=== PATIENT | female | born 1990 | race Caucasian/White ===

== ENCOUNTER 2016-12-22 18:17 | Inpatient (IN) | payer BC ==
[2016-12-22] MEDS ORDERED: Sodium Chloride 0.9% 1,000 ML IV ONE (18:49)
[2016-12-22] MEDS ORDERED: Ondansetron 4 MG/2 ML SDV IVPUSH ONE (18:49)
[2016-12-22] MEDS ORDERED: Ondansetron 4 MG/2 ML SDV ONE (19:16)
--- NOTE | 2016-12-22 19:16 | EDM.PDOC ---
ED HPI Behavioral Health - General Chief Complaint: Drug or Alcohol Abuse Stated Complaint: ETOH Time Seen by Provider: 12/22/16 18:34 Source of Information: Reports: Patient, RN notes reviewed, Other (Friend) Exam Limitations: Reports: No limitations - History of Present Illness INITIAL COMMENTS - FREE TEXT/NARRATIVE: The patient states that she is here to stop drinking alcohol. She states that she has a sister in [place] who is a heavy drug addict, and that a custody issue came up last night, and that the patient needs to get clean and sober quickly, in order to gain custody of her sister's children. The patient states that she drinks 1.75 L of vodka daily, since October 18, 2016. Medical records indicate that the patient was seen in this ED 04/18/2016 with alcohol intoxication, and was admitted to the hospital for detoxification through 2015. She states that she was incarcerated in May 2016, and remained sober until her release on 10/18/2016. The patient's last drink was approximately 15 minutes prior to arrival to the ED. She states that if she does not drink hourly, that she goes through withdrawal, involving body pain and seizures. Shortly after arrival, the patient pretended to be having a seizure, however, when given a sternal rub, immediately woke up and became alert and hostile. The patient states that she started drinking in March 2014, but not heavily until December 2015. She has never previously been in inpatient or outpatient alcohol treatment. She has never previously been hospitalized related to alcohol, either from intoxication, or an injury related to intoxication, other than the aforementioned admission 04/18/2016. She admits to one DUI on 2014. The patient also reports former use of heroin, last approximately 3 years ago, and current use of methamphetamine, last 7 days ago. She also smokes marijuana regularly. She states that she takes prescribed Adderall for ADD and ADHD. The patient also reports frequent use of [id number] Benadryl. The patient states that she has chronic "kidney" pain since March or April 2016. She has no prior medical evaluation of this, but states that she knows her body and that it is her kidneys, not something else. 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 Pt states she drinks 1.5L Vodka daily to prevent detoxing and get high. Pt denies drug use. - Infectious Disease History Infectious Disease History: Reports: Chicken pox - Past Surgical History Female Surgical History: Reports: Salpingo-oophorectomy (Total right, partial left) Neurological Surgical History: Reports: None Social & Family History - Tobacco Use Smoking Status *Q: Current Every Day Smoker Years of Tobacco use: 2 Packs/Tins Daily: 1 Used Tobacco, but Quit: No - Alcohol Use Alcohol Use History: Yes Days Per Week of Alcohol Use: 7 Number of Drinks Per Day: 34 Total Drinks Per Week: 238 Alcohol Use Frequency: Daily - Recreational Drug Use Recreational Drug Use: Yes Drug Use in Last 12 Months: Yes Recreational Drug Type: Reports: Amphetamines (Speed), Heroin, Marijuana/Hashish , Methamphetamine Recreational Drug Use Frequency: Socially Recreational Drug Last Use: 45 days ago - Living Situation & Occupation Living situation: Reports: single, alone Occupation: unemployed ED ROS GENERAL - Review of Systems Review Of Systems: See Below Constitutional: Reports: no symptoms HEENT: Reports: Throat pain (A few days ago) Respiratory: Reports: Cough (A few days ago) Cardiovascular: Reports: No symptoms Endocrine: Reports: no symptoms GI/Abdominal: Reports: No symptoms : Reports: no symptoms Musculoskeletal: Reports: no symptoms Skin: Reports: no symptoms Neurological: Reports: No Symptoms Psychiatric: Reports: No symptoms Hematologic/Lymphatic: Reports: no symptoms Immunologic: Reports: no symptoms ED EXAM, BEHAVIORAL HEALTH - Physical Exam Exam: See Below Exam Limited By: Intoxication General Appearance: alert, WD/WN, mild distress Eye Exam: bilateral eye: EOMI, normal inspection Ears: normal external exam, hearing grossly normal Nose: normal inspection, no blood Throat/Mouth: Normal inspection, Normal lips, Normal voice, No airway compromise Head: atraumatic, normocephalic Neck: normal inspection, full range of motion Respiratory/Chest: no respiratory distress, lungs clear, normal breath sounds, no accessory muscle use, chest non-tender Cardiovascular: normal peripheral pulses, regular rate, rhythm, no edema, no gallop, no JVD, no murmur, no rub GI/Abdominal: normal bowel sounds, soft, non tender, no organomegaly, no distention, no abnormal bruit, no mass Back Exam: normal inspection, full range of motion. No: CVA tenderness (L), CVA tenderness (R) Extremities: normal inspection, normal range of motion, non-tender, normal capillary refill, no pedal edema Neurological: alert, no motor/sensory deficits, other (Clinically intoxicated. No visible tremulousness.) Psychiatric: agitated Skin Exam: Warm, Dry, Intact, Normal color, No rash EKG INTERPRETATION EKG Date: 12/22/16 Time: 20:10 Rhythm: NSR Rate (beats/min): 100 [place]: normal P-wave: present QRS: normal ST-T: normal QT: normal Comparison: no change (04/18/2016) COURSE, BEHAVIORAL HEALTH COMP - Course Vital Signs: Last Vital Signs Temp 36.4 C 12/22/16 18:25 Pulse 124 H 12/22/16 18:25 Resp 20 12/22/16 18:25 BP 134/86 12/22/16 18:25 Pulse Ox 97 12/22/16 18:25 Orders, Labs, Meds: Active Orders 24 hr Category Date Time Status Admission Status [Patient Status] [ADT] Routine ADT 12/22/16 20:58 Ordered EKG Documentation Completion [RC] STAT Care 12/22/16 18:48 Active Sodium Chloride 0.9% [Normal Saline] 1,000 ml Med 12/22/16 20:45 Active IV ASDIRECTED Medication Orders Sodium Chloride (Normal Saline) 1,000 mls @ 100 mls/hr IV ASDIRECTED MALDONADO Last Admin: 12/22/16 20:50 Dose: 100 mls/hr Laboratory Tests 12/22/16 12/22/16 12/22/16 Range/Units 18:47 18:47 18:47 WBC 13.12 H (3.98-10.04) K/mm3 RBC 4.47 (3.98-5.22) M/mm3 Hgb 13.5 (11.2-15.7) gm/L Hct 39.5 (34.1-44.9) % MCV 88.4 (79.4-94.8) fl MCH 30.2 (25.6-32.2) pg MCHC 34.2 (32.2-35.5) g/dl RDW Std Deviation 40.6 (36.4-46.3) fL Plt Count 338 (182-369) K/mm3 MPV 8.0 L (9.4-12.3) fl Neutrophils % (Manual) 44 (40-60) % Band Neutrophils % 0 (0-10) % Lymphocytes % (Manual) 45 H (20-40) % Atypical Lymphs % 0 % Monocytes % (Manual) 11 H (2-10) % Eosinophils % (Manual) 0 L (0.7-5.8) % Basophils % (Manual) 0 L (0.1-1.2) Platelet Estimate Adequate Plt Morphology Comment Normal RBC Morph Comment Normal Sodium 143 (136-145) mEq/L Potassium 3.2 L (3.5-5.1) mEq/L Chloride 104 (98-107) mEq/L Carbon Dioxide 24 (21-32) mEq/L Anion Gap 18.2 H (5-15) BUN 11 (7-18) mg/dL Creatinine 0.8 (0.55-1.02) mg/dL Est Cr Clr Drug Dosing 81.12 mL/min Estimated GFR (MDRD) > 60 (>60) mL/min BUN/Creatinine Ratio 13.8 L (14-18) Glucose 83 (74-106) mg/dL Calcium 8.8 (8.5-10.1) mg/dL Total Bilirubin 0.4 (0.2-1.0) mg/dL AST 42 H (15-37) U/L ALT 44 (14-59) U/L Alkaline Phosphatase 93 (46-116) U/L Total Protein 7.7 (6.4-8.2) g/dl Albumin 3.7 (3.4-5.0) g/dl Globulin 4.0 gm/dL Albumin/Globulin Ratio 0.9 L (1-2) TSH 3rd Generation 0.842 (0.358-3.74) uIU/mL Urine Color (Yellow) Urine Appearance (Clear) Urine pH (5.0-8.0) Ur Specific [place] (1.005-1.030) Urine Protein (Negative) Urine Glucose (UA) (Negative) Urine Ketones (Negative) Urine Occult Blood (Negative) Urine Nitrite (Negative) Urine Bilirubin (Negative) Urine Urobilinogen (0.2-1.0) Ur Leukocyte Esterase (Negative) Urine RBC (0-5) /hpf Urine WBC (0-5) /hpf Ur Epithelial Cells (0-5) /hpf Urine Bacteria (FEW) /hpf Urine Mucus (FEW) /hpf Urine HCG, Qual (NEGATIVE) Salicylates 2.5 L (2.8-20) mg/dL Urine Opiates Screen (NEGATIVE) Ur Buprenorphine Scrn (NEGATIVE) Ur Oxycodone Screen (NEGATIVE) Urine Methadone Screen (NEGATIVE) Ur Propoxyphene Screen (NEGATIVE) Acetaminophen 0 L (10-30) ug/mL Ur Barbiturates Screen (NEGATIVE) Ur Tricyclics Screen (NEGATIVE) Ur Phencyclidine Scrn (NEGATIVE) Ur Amphetamine Screen (NEGATIVE) U Methamphetamines Scrn (NEGATIVE) U Benzodiazepines Scrn (NEGATIVE) U Cocaine Metab Screen (NEGATIVE) U Marijuana (THC) Screen (NEGATIVE) Ethyl Alcohol 0.32 (0.00) gm% 12/22/16 12/22/16 12/22/16 Range/Units 19:49 19:49 19:49 WBC (3.98-10.04) K/mm3 RBC (3.98-5.22) M/mm3 Hgb (11.2-15.7) gm/L Hct (34.1-44.9) % MCV (79.4-94.8) fl MCH (25.6-32.2) pg MCHC (32.2-35.5) g/dl RDW Std Deviation (36.4-46.3) fL Plt Count (182-369) K/mm3 MPV (9.4-12.3) fl Neutrophils % (Manual) (40-60) % Band Neutrophils % (0-10) % Lymphocytes % (Manual) (20-40) % Atypical Lymphs % % Monocytes % (Manual) (2-10) % Eosinophils % (Manual) (0.7-5.8) % Basophils % (Manual) (0.1-1.2) Platelet Estimate Plt Morphology Comment RBC Morph Comment Sodium (136-145) mEq/L Potassium (3.5-5.1) mEq/L Chloride (98-107) mEq/L Carbon Dioxide (21-32) mEq/L Anion Gap (5-15) BUN (7-18) mg/dL Creatinine (0.55-1.02) mg/dL Est Cr Clr Drug Dosing mL/min Estimated GFR (MDRD) (>60) mL/min BUN/Creatinine Ratio (14-18) Glucose (74-106) mg/dL Calcium (8.5-10.1) mg/dL Total Bilirubin (0.2-1.0) mg/dL AST (15-37) U/L ALT (14-59) U/L Alkaline Phosphatase (46-116) U/L Total Protein (6.4-8.2) g/dl Albumin (3.4-5.0) g/dl Globulin gm/dL Albumin/Globulin Ratio (1-2) TSH 3rd Generation (0.358-3.74) uIU/mL Urine Color Yellow (Yellow) Urine Appearance Clear (Clear) Urine pH 6.5 (5.0-8.0) Ur Specific [place] 1.010 (1.005-1.030) Urine Protein Negative (Negative) Urine Glucose (UA) Negative (Negative) Urine Ketones 1+ H (Negative) Urine Occult Blood Negative (Negative) Urine Nitrite Negative (Negative) Urine Bilirubin Negative (Negative) Urine Urobilinogen 0.2 (0.2-1.0) Ur Leukocyte Esterase Negative (Negative) Urine RBC Not seen (0-5) /hpf Urine WBC 0-5 (0-5) /hpf Ur Epithelial Cells Not seen (0-5) /hpf Urine Bacteria Few (FEW) /hpf Urine Mucus Not seen (FEW) /hpf Urine HCG, Qual Negative (NEGATIVE) Salicylates (2.8-20) mg/dL Urine Opiates Screen Negative (NEGATIVE) Ur Buprenorphine Scrn Negative (NEGATIVE) Ur Oxycodone Screen Negative (NEGATIVE) Urine Methadone Screen Negative (NEGATIVE) Ur Propoxyphene Screen Negative (NEGATIVE) Acetaminophen (10-30) ug/mL Ur Barbiturates Screen Negative (NEGATIVE) Ur Tricyclics Screen Negative (NEGATIVE) Ur Phencyclidine Scrn Negative (NEGATIVE) Ur Amphetamine Screen Presumptive positive H (NEGATIVE) U Methamphetamines Scrn Presumptive positive H (NEGATIVE) U Benzodiazepines Scrn Negative (NEGATIVE) U Cocaine Metab Screen Presumptive positive H (NEGATIVE) U Marijuana (THC) Screen Presumptive positive H (NEGATIVE) Ethyl Alcohol (0.00) gm% Medications Generic Name Dose Route Start Last Admin Trade Name Freq PRN Reason Stop Dose Admin Sodium Chloride 1,000 mls @ 100 mls/hr 12/22/16 20:45 12/22/16 20:50 Normal Saline IV 100 mls/hr ASDIRECTED MALDONADO Administration Discontinued Medications Generic Name Dose Route Start Last Admin Trade Name Freq PRN Reason Stop Dose Admin Sodium Chloride 1,000 mls @ 1,000 mls/hr 12/22/16 18:49 12/22/16 19:05 Normal Saline IV 12/22/16 19:48 1,000 mls/hr ONETIME ONE Administration Ondansetron HCl 4 mg 12/22/16 18:49 12/22/16 19:06 Zofran IVPUSH 12/22/16 18:50 4 mg ONETIME ONE Administration Ondansetron HCl Confirm 12/22/16 19:16 12/22/16 19:58 Zofran Administered 12/22/16 19:17 Not Given Dose 4 mg .ROUTE .[facility] ONE Medical Clearance: 12/22/16 20:[address] Segovia at 20:51. He accepts the patient for admission to the ICU. Departure - Departure Time of Disposition: 20:56 Disposition: Admitted As Inpatient 67 Condition: fair Clinical Impression: Alcohol intoxication, Polysubstance abuse - My Orders Last 24 Hours: My Active Orders 12/22/16 18:48 EKG Documentation Completion [RC] STAT 12/22/16 20:45 Sodium Chloride 0.9% [Normal Saline] 1,000 ml IV ASDIRECTED 12/22/16 20:58 Admission Status [Patient Status] [ADT] Routine - Assessment/Plan Last 24 Hours: My Active Orders 12/22/16 18:48 EKG Documentation Completion [RC] STAT 12/22/16 20:45 Sodium Chloride 0.9% [Normal Saline] 1,000 ml IV ASDIRECTED 12/22/16 20:58 Admission Status [Patient Status] [ADT] Routine
[2016-12-22 19:35] LABS: ACETAMINOPHEN 0 ug/mL (10-30)
[2016-12-22] MEDS: Sodium Chloride 0.9% 1,000 ML IV SCH (20:50)
[2016-12-22] MEDS ORDERED: Acetaminophen 325 MG Tab PO PRN (21:45)
[2016-12-22] MEDS ORDERED: Temazepam 15 MG Cap PO PRN (21:45)
[2016-12-22] MEDS ORDERED: Promethazine 12.5 MG in Sodium Chloride 0.9% 50 ML IV PRN (21:45)
[2016-12-22] MEDS ORDERED: Polyethylene Glycol 3350 Powder 17 GM Packet PO PRN (21:45)
[2016-12-22] MEDS ORDERED: Bisacodyl 5 MG Tab PO PRN (21:45)
[2016-12-22] MEDS ORDERED: Magnesium Hydroxide 400 MG/5 ML Susp 30 ML Cup PO PRN (21:45)
[2016-12-22] MEDS ORDERED: Albuterol/Ipratropium 3.0-0.5 MG/3 ML Neb Soln NEB PRN (21:45)
[2016-12-22] MEDS ORDERED: Ondansetron 4 MG/2 ML SDV IV PRN (21:45)
[2016-12-22] MEDS ORDERED: Metoprolol Tartrate 5 MG/5 ML SDV IVPUSH PRN (21:49)
[2016-12-22] MEDS ORDERED: LORazepam 2 MG/ML MDV IVPUSH PRN (21:49)
[2016-12-22] MEDS ORDERED: hydrALAZINE 20 MG/ML SDV IVPUSH PRN (21:49)
[2016-12-22] MEDS ORDERED: Multivitamins,Therapeutic Tab PO ONE (21:50)
[2016-12-22] MEDS ORDERED: Folic Acid 1 MG Tab PO ONE (21:51)
[2016-12-22] MEDS ORDERED: Thiamine 200 MG/2 ML MDV IV ONE (21:51)
[2016-12-22] MEDS ORDERED: chlordiazePOXIDE 25 MG Cap PO ONE (21:56)
[2016-12-22] MEDS ORDERED: QUEtiapine 25 MG Tab PO ONE (21:56)
[2016-12-22] MEDS ORDERED: diphenhydrAMINE 50 MG/ML SDV IVPUSH ONE (21:57)
--- NOTE | 2016-12-22 22:03 | PCM.HP ---
H&P History of Present Illness - General Date of Service: 12/22/16 Admit Problem/Dx: Admission Diagnosis/Problem Admission Diagnosis/Problem Alcohol intoxication Source of Information: Patient, Old records, Provider, RN notes reviewed History Limitations: Reports: Intoxication, Physical impairment - History of Present Illness Initial Comments - Free Text/Narative: This is a 26 yo white female with past medical hx/o ADD, ADHD, Chronic Substance Abuse, Depression, and Questionable Multiple Personality Disorder who comes in for alcohol detoxification. Patient is known to me from previous admission for similar presentation. Patient carries a hx/o chronic alcohol abuse. She drinks about 1.5 vodka a day. She admit sot using illicit drugs and she is also an active cigarette smoker. Her initial work in ED shows a CBC remarkable for WBC 13.12. Her chemistry is significant for K 3.2, AG 18.2, and AST 42. MARLENA 0.32. Her UA shows no UTI. Her UDS is pos Amphetamine/Meth, Cocaine and Marijuana. Patient is coming in for Substance Abuse and ETOH Detoxification. Right Flank Pain Score (Numeric/FACES): 8 - Related Data Allergies/Adverse Reactions: Allergies Allergy/AdvReac Type Severity Reaction Status Date / Time No Known Allergies Allergy Verified 04/18/16 13:10 Home Medications: Home Meds Cyanocobalamin/FA/Pyridoxine [Folic Acid-Vit B6-Vit B12] 1 each PO DAILY [History] Multivitamin [Multivitamins] 1 each PO DAILY 04/18/16 [History] Past Medical History - Past Health History Medical/Surgical History: Denies Medical/Surgical History Cardiovascular History: Reports: Heart murmur Respiratory History: Reports: Bronchitis, recurrent Gastrointestinal History: Reports: GERD Other Gastrointestinal History: Pt states she has had kidney pain in right flank since she started drinking back in October. [employer] History: Reports: Polycystic Ovaries Musculoskeletal History: Reports: Arthritis, Back pain, chronic Neurological History: Reports: Seizure Other Neuro History: 2 min. Seizure witnessed by boyfriend, Anthony last night while detoxing, according to pt. 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 Pt states she drinks 1.5L Vodka daily to prevent detoxing and get high. Pt denies drug use. Immunologic History: Reports: None Oncologic (Cancer) History: Reports: Ovarian - Infectious Disease History Infectious Disease History: Reports: Chicken pox - Past Surgical History Female Surgical History: Reports: Salpingo-oophorectomy (Total right, partial left) Neurological Surgical History: Reports: None Social & Family History - Tobacco Use Smoking Status *Q: Current Every Day Smoker Years of Tobacco use: 2 Packs/Tins Daily: 1 Used Tobacco, but Quit: No Second Hand Smoke Exposure: No - Alcohol Use Days Per Week of Alcohol Use: 7 Number of Drinks Per Day: 34 Total Drinks Per Week: 238 - Recreational Drug Use Recreational Drug Use: Yes Drug Use in Last 12 Months: Yes Recreational Drug Type: Reports: Amphetamines (Speed), Heroin, Marijuana/Hashish , Methamphetamine Recreational Drug Use Frequency: Socially Recreational Drug Last Use: 45 days ago - Living Situation & Occupation Living situation: Reports: single, alone Occupation: unemployed H&P Review of Systems - Review of Systems: Review Of Systems: See Below General: Denies: fever, chills, malaise, weakness HEENT: Reports: no symptoms Pulmonary: Reports: Shortness of Breath Cardiovascular: Denies: chest pain, dyspnea on exertion, other Gastrointestinal: Reports: Nausea, Vomiting. Denies: Abdominal pain Genitourinary: Reports: no symptoms Musculoskeletal: Reports: back pain Skin: Denies: cyanosis, pruritis, rash, erythema Psychiatric: Reports: anxiety. Denies: depression, hallucinations, suicidal ideation Neurological: Reports: Difficulty Walking, Gait Disturbance. Denies: Confusion , Seizure Hematologic/Lymphatic: Reports: no symptoms Immunologic: Reports: no symptoms Exam - Exam Exam: See Below - Vital Signs Vital Signs: Last Vital Signs Temp 36.4 C 12/22/16 18:25 Pulse 124 H 12/22/16 18:25 Resp 20 12/22/16 18:25 BP 134/86 12/22/16 18:25 Pulse Ox 97 12/22/16 18:25 Weight: 68.039 kg - Exam General: alert, oriented, cooperative, mild distress HEENT: Conjunctiva clear, EACs clear, Hearing intact, Mucosa moist & pink, Nares patent, Normal nasal septum, Posterior pharynx clear, PERRLA. No: EOMI Neck: supple, trachea midline, 2+ carotid pulse wo bruit Lungs: Clear to auscultation, Normal respiratory effort Cardiovascular: regular rate, regular rhythm Abdomen: normal bowel sounds, soft. No: organomegaly (Female) Exam: Deferred Rectal (Female) Exam: Deferred Back Exam: normal inspection, decreased range of motion Extremities: normal inspection, normal pulses. No: clubbing, cyanosis, calf tenderness, edema Peripheral Pulses: 3+: posterior tibial (L), posterior tibial (R), dorsalis pedis (L), dorsalis pedis (R) Skin: warm, dry, intact Neuro Extensive - Mental Status: oriented x3, normal cognition, memory intact Neuro Extensive - Motor, Sensory, Reflexes: CN II-XII intact, abnormal gait. No : normal gait Psychiatric: alert, anxious. No: withdrawal symptoms - Patient Data Lab Results last 24 hrs: Laboratory Results - last 24 hr 12/22/16 12/22/16 12/22/16 Range/Units 18:47 18:47 18:47 WBC 13.12 H (3.98-10.04) K/mm3 RBC 4.47 (3.98-5.22) M/mm3 Hgb 13.5 (11.2-15.7) gm/L Hct 39.5 (34.1-44.9) % MCV 88.4 (79.4-94.8) fl MCH 30.2 (25.6-32.2) pg MCHC 34.2 (32.2-35.5) g/dl RDW Std Deviation 40.6 (36.4-46.3) fL Plt Count 338 (182-369) K/mm3 MPV 8.0 L (9.4-12.3) fl Neutrophils % (Manual) 44 (40-60) % Band Neutrophils % 0 (0-10) % Lymphocytes % (Manual) 45 H (20-40) % Atypical Lymphs % 0 % Monocytes % (Manual) 11 H (2-10) % Eosinophils % (Manual) 0 L (0.7-5.8) % Basophils % (Manual) 0 L (0.1-1.2) Platelet Estimate Adequate Plt Morphology Comment Normal RBC Morph Comment Normal Sodium 143 (136-145) mEq/L Potassium 3.2 L (3.5-5.1) mEq/L Chloride 104 (98-107) mEq/L Carbon Dioxide 24 (21-32) mEq/L Anion Gap 18.2 H (5-15) BUN 11 (7-18) mg/dL Creatinine 0.8 (0.55-1.02) mg/dL Est Cr Clr Drug Dosing 81.12 mL/min Estimated GFR (MDRD) > 60 (>60) mL/min BUN/Creatinine Ratio 13.8 L (14-18) Glucose 83 (74-106) mg/dL Calcium 8.8 (8.5-10.1) mg/dL Total Bilirubin 0.4 (0.2-1.0) mg/dL AST 42 H (15-37) U/L ALT 44 (14-59) U/L Alkaline Phosphatase 93 (46-116) U/L Total Protein 7.7 (6.4-8.2) g/dl Albumin 3.7 (3.4-5.0) g/dl Globulin 4.0 gm/dL Albumin/Globulin Ratio 0.9 L (1-2) TSH 3rd Generation 0.842 (0.358-3.74) uIU/mL Urine Color (Yellow) Urine Appearance (Clear) Urine pH (5.0-8.0) Ur Specific [place] (1.005-1.030) Urine Protein (Negative) Urine Glucose (UA) (Negative) Urine Ketones (Negative) Urine Occult Blood (Negative) Urine Nitrite (Negative) Urine Bilirubin (Negative) Urine Urobilinogen (0.2-1.0) Ur Leukocyte Esterase (Negative) Urine RBC (0-5) /hpf Urine WBC (0-5) /hpf Ur Epithelial Cells (0-5) /hpf Urine Bacteria (FEW) /hpf Urine Mucus (FEW) /hpf Urine HCG, Qual (NEGATIVE) Salicylates 2.5 L (2.8-20) mg/dL Urine Opiates Screen (NEGATIVE) Ur Buprenorphine Scrn (NEGATIVE) Ur Oxycodone Screen (NEGATIVE) Urine Methadone Screen (NEGATIVE) Ur Propoxyphene Screen (NEGATIVE) Acetaminophen 0 L (10-30) ug/mL Ur Barbiturates Screen (NEGATIVE) Ur Tricyclics Screen (NEGATIVE) Ur Phencyclidine Scrn (NEGATIVE) Ur Amphetamine Screen (NEGATIVE) U Methamphetamines Scrn (NEGATIVE) U Benzodiazepines Scrn (NEGATIVE) U Cocaine Metab Screen (NEGATIVE) U Marijuana (THC) Screen (NEGATIVE) Ethyl Alcohol 0.32 (0.00) gm% 12/22/16 12/22/16 12/22/16 Range/Units 19:49 19:49 19:49 WBC (3.98-10.04) K/mm3 RBC (3.98-5.22) M/mm3 Hgb (11.2-15.7) gm/L Hct (34.1-44.9) % MCV (79.4-94.8) fl MCH (25.6-32.2) pg MCHC (32.2-35.5) g/dl RDW Std Deviation (36.4-46.3) fL Plt Count (182-369) K/mm3 MPV (9.4-12.3) fl Neutrophils % (Manual) (40-60) % Band Neutrophils % (0-10) % Lymphocytes % (Manual) (20-40) % Atypical Lymphs % % Monocytes % (Manual) (2-10) % Eosinophils % (Manual) (0.7-5.8) % Basophils % (Manual) (0.1-1.2) Platelet Estimate Plt Morphology Comment RBC Morph Comment Sodium (136-145) mEq/L Potassium (3.5-5.1) mEq/L Chloride (98-107) mEq/L Carbon Dioxide (21-32) mEq/L Anion Gap (5-15) BUN (7-18) mg/dL Creatinine (0.55-1.02) mg/dL Est Cr Clr Drug Dosing mL/min Estimated GFR (MDRD) (>60) mL/min BUN/Creatinine Ratio (14-18) Glucose (74-106) mg/dL Calcium (8.5-10.1) mg/dL Total Bilirubin (0.2-1.0) mg/dL AST (15-37) U/L ALT (14-59) U/L Alkaline Phosphatase (46-116) U/L Total Protein (6.4-8.2) g/dl Albumin (3.4-5.0) g/dl Globulin gm/dL Albumin/Globulin Ratio (1-2) TSH 3rd Generation (0.358-3.74) uIU/mL Urine Color Yellow (Yellow) Urine Appearance Clear (Clear) Urine pH 6.5 (5.0-8.0) Ur Specific [place] 1.010 (1.005-1.030) Urine Protein Negative (Negative) Urine Glucose (UA) Negative (Negative) Urine Ketones 1+ H (Negative) Urine Occult Blood Negative (Negative) Urine Nitrite Negative (Negative) Urine Bilirubin Negative (Negative) Urine Urobilinogen 0.2 (0.2-1.0) Ur Leukocyte Esterase Negative (Negative) Urine RBC Not seen (0-5) /hpf Urine WBC 0-5 (0-5) /hpf Ur Epithelial Cells Not seen (0-5) /hpf Urine Bacteria Few (FEW) /hpf Urine Mucus Not seen (FEW) /hpf Urine HCG, Qual Negative (NEGATIVE) Salicylates (2.8-20) mg/dL Urine Opiates Screen Negative (NEGATIVE) Ur Buprenorphine Scrn Negative (NEGATIVE) Ur Oxycodone Screen Negative (NEGATIVE) Urine Methadone Screen Negative (NEGATIVE) Ur Propoxyphene Screen Negative (NEGATIVE) Acetaminophen (10-30) ug/mL Ur Barbiturates Screen Negative (NEGATIVE) Ur Tricyclics Screen Negative (NEGATIVE) Ur Phencyclidine Scrn Negative (NEGATIVE) Ur Amphetamine Screen Presumptive positive H (NEGATIVE) U Methamphetamines Scrn Presumptive positive H (NEGATIVE) U Benzodiazepines Scrn Negative (NEGATIVE) U Cocaine Metab Screen Presumptive positive H (NEGATIVE) U Marijuana (THC) Screen Presumptive positive H (NEGATIVE) Ethyl Alcohol (0.00) gm% Result Diagrams: 12/22/16 18:47 12/22/16 18:47 EKG INTERPRETATION EKG Date: 12/22/16 Time: 20:10 Rhythm: NSR Rate (beats/min): 100 [place]: normal P-wave: present QRS: normal ST-T: normal QT: normal Comparison: change from previous EKG *Q Meaningful Use (ADM) - VTE *Q VTE Criteria *Q: - Stroke *Q Stroke Criteria *Q: - AMI *Q AMI Criteria *Q: Problem List Initiated/Reviewed/Updated: Yes Orders Last 24hrs: Active Orders 24 hr Category Date Time Status Admission Status [Patient Status] [ADT] Routine ADT 12/22/16 20:58 Active Cardiac Monitoring [RC] CONTINUOUS Care 12/22/16 21:46 Ordered EKG Documentation Completion [RC] STAT Care 12/22/16 18:48 Active Intake and Output [RC] QSHIFT Care 12/22/16 21:45 Ordered Notify Provider Consults [RC] ASDIRECTED Care 12/22/16 21:49 Ordered Oxygen Therapy [RC] PRN Care 12/22/16 21:45 Ordered RT Aerosol Therapy [RC] ASDIRECTED Care 12/22/16 21:47 Ordered Up With Assistance [RC] ASDIRECTED Care 12/22/16 21:45 Ordered Up ad Ros [RC] ASDIRECTED Care 12/22/16 21:45 Ordered VTE/DVT Education [RC] PER UNIT ROUTINE Care 12/22/16 21:45 Ordered Vital Signs [RC] Q4H Care 12/22/16 21:45 Ordered Consult to Case Management [CONS] Routine Cons 12/22/16 21:47 Ordered Consult to Physician [CONS] Routine Cons 12/22/16 21:47 Ordered Consult to Gear Finisher [CONS] Routine Cons 12/22/16 21:47 Ordered Consult to Spiritual Care [CONS] Routine Cons 12/22/16 21:47 Ordered Regular Diet [DIET] Diet 12/22/16 Dinner Ordered BASIC METABOLIC PANEL,BMP [CHEM] AM Lab 12/23/16 05:11 Ordered BASIC METABOLIC PANEL,BMP [CHEM] AM Lab 12/24/16 05:11 Ordered BASIC METABOLIC PANEL,BMP [CHEM] AM Lab 12/25/16 05:11 Ordered BASIC METABOLIC PANEL,BMP [CHEM] AM Lab 12/26/16 05:11 Ordered BASIC METABOLIC PANEL,BMP [CHEM] AM Lab 12/27/16 05:11 Ordered BASIC METABOLIC PANEL,BMP [CHEM] AM Lab 12/28/16 05:11 Ordered CBC WITH AUTO DIFF [HEME] AM Lab 12/23/16 05:11 Ordered CBC WITH AUTO DIFF [HEME] AM Lab 12/24/16 05:11 Ordered CBC WITH AUTO DIFF [HEME] AM Lab 12/25/16 05:11 Ordered CBC WITH AUTO DIFF [HEME] AM Lab 12/26/16 05:11 Ordered CBC WITH AUTO DIFF [HEME] AM Lab 12/27/16 05:11 Ordered CBC WITH AUTO DIFF [HEME] AM Lab 12/28/16 05:11 Ordered MAGNESIUM [CHEM] AM Lab 12/23/16 05:11 Ordered MAGNESIUM [CHEM] AM Lab 12/24/16 05:11 Ordered MAGNESIUM [CHEM] AM Lab 12/25/16 05:11 Ordered MAGNESIUM [CHEM] AM Lab 12/26/16 05:11 Ordered MAGNESIUM [CHEM] AM Lab 12/27/16 05:11 Ordered MAGNESIUM [CHEM] AM Lab 12/28/16 05:11 Ordered Acetaminophen [Tylenol] Med 12/22/16 21:45 Ordered 650 mg PO Q4H PRN Acetaminophen/HYDROcodone [[place] 325-5 MG] Med 12/22/16 21:45 Ordered 1 tab PO Q4H PRN Albuterol/Ipratropium [DuoNeb 3.0-0.5 MG/3 ML] Med 12/22/16 21:45 Ordered 3 ml NEB Q4H PRN Bisacodyl [Dulcolax] Med 12/22/16 21:45 Ordered 5 mg PO DAILY PRN Docusate Sodium/Sennosides [Senna Plus] Med 12/22/16 21:45 Ordered 1 tab PO BID PRN Enoxaparin [Lovenox] Med 12/23/16 09:00 Ordered 30 mg SUBCUT DAILY Folic Acid Med 12/23/16 21:00 Ordered 1 mg PO BEDTIME Folic Acid Med 12/22/16 21:51 Once 1 mg PO ONETIME ONE HYDROmorphone [Dilaudid] Med 12/22/16 21:45 Ordered 0.25 mg IVPUSH Q2H PRN LORazepam [Ativan] Med 12/22/16 21:49 Ordered 2 mg IVPUSH Q4H PRN Magnesium Hydroxide [Milk of Magnesia] Med 12/22/16 21:45 Ordered 30 ml PO Q12H PRN Magnesium Rep Pharmacy to Dose [Pharmacy to Dose - Med 12/22/16 22:00 Ordered Magnesium Replacement] 1 dose .XX ASDIRECTED Metoprolol Tartrate [Lopressor] Med 12/22/16 21:49 Ordered 5 mg IVPUSH Q4H PRN Multivitamins,Therapeutic [Thera] Med 12/23/16 21:00 Ordered 1 each PO BEDTIME Multivitamins,Therapeutic [Thera] Med 12/22/16 21:50 Once 1 each PO DAILY ONE Ondansetron [Zofran] Med 12/22/16 21:45 Ordered 4 mg IV Q4H PRN Pantoprazole [Protonix IV] Med 12/23/16 09:00 Ordered 40 mg IV Q12HR Polyethylene Glycol 3350 [MiraLAX] Med 12/22/16 21:45 Ordered 17 gm PO DAILY PRN Potassium Rep Pharmacy to Dose [Pharmacy to Dose - Med 12/22/16 22:00 Ordered Potassium Replacement] 1 dose .XX ASDIRECTED Promethazine [Phenergan] 12.5 mg Med 12/22/16 21:45 Ordered Sodium Chloride 0.9% [Normal Saline] 50 ml IV Q6H QUEtiapine [SEROquel] Med 12/23/16 09:00 Ordered 25 mg PO BID QUEtiapine [SEROquel] Med 12/22/16 21:56 Once 25 mg PO ONETIME ONE Sodium Chloride 0.9% [Normal Saline] 1,000 ml Med 12/22/16 20:45 Active IV ASDIRECTED Temazepam [Restoril] Med 12/22/16 21:45 Ordered 30 mg PO BEDTIME PRN Thiamine [Vitamin B-1] Med 12/23/16 21:00 Ordered 100 mg PO BEDTIME Thiamine [Vitamin B-1] Med 12/22/16 21:51 Once 200 mg IV ONETIME ONE Topiramate [Topamax] Med 12/23/16 21:50 Once 25 mg PO BEDTIME ONE Topiramate [Topamax] Med 12/23/16 09:00 Ordered 25 mg PO BID chlordiazePOXIDE [Librium] Med 12/23/16 09:00 Ordered 25 mg PO QID chlordiazePOXIDE [Librium] Med 12/22/16 21:56 Once 50 mg PO ONETIME ONE cloNIDine [Catapres] Med 12/22/16 22:00 Ordered 0.1 mg PO Q8H diphenhydrAMINE [Benadryl] Med 12/22/16 21:57 Once 50 mg IVPUSH ONETIME ONE hydrALAZINE [Apresoline] Med 12/22/16 21:49 Ordered 20 mg IVPUSH Q4H PRN Resuscitation Status Routine Resus Stat 12/22/16 21:45 Ordered Medication Orders Acetaminophen (Tylenol) 650 mg PO Q4H PRN PRN Reason: Pain (Mild 1-3)/fever Acetaminophen/Hydrocodone Bitart ([place] 325-5 Mg) 1 tab PO Q4H PRN PRN Reason: Pain (moderate 4-6) Albuterol/Ipratropium (Duoneb 3.0-0.5 Mg/3 Ml) 3 ml NEB Q4H PRN PRN Reason: Shortness Of Breath/wheezing Bisacodyl (Dulcolax) 5 mg PO DAILY PRN PRN Reason: Constipation Chlordiazepoxide HCl (Librium) 25 mg PO QID [facility] Chlordiazepoxide HCl (Librium) 50 mg PO ONETIME ONE Stop: 12/22/16 21:57 Clonidine HCl (Catapres) 0.1 mg PO Q8H [facility] Diphenhydramine HCl (Benadryl) 50 mg IVPUSH ONETIME ONE Stop: 12/22/16 21:58 Enoxaparin Sodium (Lovenox) 30 mg SUBCUT DAILY [facility] Folic Acid (Folic Acid) 1 mg PO ONETIME ONE Stop: 12/22/16 21:52 Folic Acid (Folic Acid) 1 mg PO BEDTIME [facility] Hydralazine HCl (Apresoline) 20 mg IVPUSH Q4H PRN PRN Reason: Hypertension Hydromorphone HCl (Dilaudid) 0.25 mg IVPUSH Q2H PRN PRN Reason: Pain (severe 7-10) Sodium Chloride (Normal Saline) 1,000 mls @ 100 mls/hr IV ASDIRECTED [facility] Last Admin: 12/22/16 20:50 Dose: 100 mls/hr Promethazine HCl 12.5 mg/ (Sodium Chloride) 50.5 mls @ 100 mls/hr IV Q6H PRN PRN Reason: Nausea/Vomiting Lorazepam (Ativan) 2 mg IVPUSH Q4H PRN PRN Reason: Seizures Magnesium Hydroxide (Milk Of Magnesia) 30 ml PO Q12H PRN PRN Reason: Constipation Magnesium Sulfate (Pharmacy To Dose - Magnesium Replacement) 1 dose .XX ASDIRECTED [facility] Metoprolol Tartrate (Lopressor) 5 mg IVPUSH Q4H PRN PRN Reason: Tachycardia Multivitamins (Thera) 1 each PO BEDTIME [facility] Multivitamins (Thera) 1 each PO DAILY ONE Stop: 12/22/16 21:51 Ondansetron HCl (Zofran) 4 mg IV Q4H PRN PRN Reason: Nausea/Vomiting Pantoprazole Sodium (Protonix Iv) 40 mg IV Q12HR [facility] Polyethylene Glycol (Miralax) 17 gm PO DAILY PRN PRN Reason: Constipation Potassium Chloride (Pharmacy To Dose - Potassium Replacement) 1 dose .XX ASDIRECTED [facility] Quetiapine Fumarate (Seroquel) 25 mg PO BID [facility] Quetiapine Fumarate (Seroquel) 25 mg PO ONETIME ONE Stop: 12/22/16 21:57 Senna/Docusate Sodium (Senna Plus) 1 tab PO BID PRN PRN Reason: Constipation Temazepam (Restoril) 30 mg PO BEDTIME PRN PRN Reason: Sleep Thiamine HCl (Vitamin B-1) 100 mg PO BEDTIME [facility] Thiamine HCl (Vitamin B-1) 200 mg IV ONETIME ONE Stop: 12/22/16 21:52 Topiramate (Topamax) 25 mg PO BID [facility] Topiramate (Topamax) 25 mg PO BEDTIME ONE Stop: 12/23/16 21:51 Assessment/Plan Comment:: Assessment: ETOH Intoxication - MARLENA level is 0.32 - [facility]WA protocol - Ativan/Librium/Clonidine/Topamax/Seroquel/Benadryl - Hydralzine and IVP BB for HR/BP control - Ativan for Abortive Seizure and Withdrawal Symptoms - Restoril for Insomnia Poly-Substance Abuse - UDS: pos Amphetamine/Meth, Cocaine and Marijuana - Counseled on Substance Abuse - SA/Psych consult Tobacco Dependence - Nicotine patch - Counseled on Smoking Cessation Chronic ETOH Abuse - [facility]WA protocol as above Leukocytosis - WBC 13K - Likely 2/2 Stress Hypokalemia - 2/2 Inadequate intake - Will replete and monitor Plan: Admit to ICU Routine AM Labs MVI, Folic, Acid and Thiamine [facility] protocol Ativan for Abortive Seizure and Withdrawal Symptoms Restoril for Insomnia PRN meds for Withdrawal Symptoms Aspiration/Seizure Precautions SW/CM d/c planning SA/Pysch consult Code Status: 1
[2016-12-22] MEDS: cloNIDine 0.1 MG Tab PO SCH (22:22)
[2016-12-22] MEDS ORDERED: LORazepam 2 MG/ML MDV IVPUSH ONE (22:24)
[2016-12-22] MEDS: HYDROmorphone 1 MG/ML Syringe IVPUSH PRN (22:27)
[2016-12-22] MEDS ORDERED: Potassium Chloride 20 MEQ Tab.ER PO SCH (23:00)
[2016-12-23] MEDS ORDERED: Potassium Chloride 100 ML ONE (01:01)
[2016-12-23] MEDS: Potassium Chloride 10 MEQ in Premix Bag 1 BAG IV SCH ×4 (01:03→05:11)
[2016-12-23] MEDS: Sodium Chloride 0.9% 1,000 ML IV SCH ×2 (03:31→14:46)
[2016-12-23] MEDS: cloNIDine 0.1 MG Tab PO SCH ×3 (05:12→20:59)
[2016-12-23] MEDS ORDERED: LORazepam 2 MG/ML MDV IVPUSH ONE (08:24)
[2016-12-23] MEDS: Enoxaparin 40 MG/0.4 ML Syringe SUBCUT SCH (08:50)
[2016-12-23] MEDS: Topiramate 25 MG Tab PO SCH ×2 (08:50→21:01)
[2016-12-23] MEDS: chlordiazePOXIDE 25 MG Cap PO SCH ×4 (08:50→21:00)
[2016-12-23] MEDS: Nicotine 21 MG/24 Hr Patch TRDERM SCH (08:50)
[2016-12-23] MEDS: Pantoprazole 40 MG Vial IV SCH ×2 (08:51→21:01)
[2016-12-23] MEDS: HYDROmorphone 1 MG/ML Syringe IVPUSH PRN (08:53)
[2016-12-23] MEDS ORDERED: QUEtiapine 25 MG Tab PO SCH (09:00)
[2016-12-23] MEDS ORDERED: Diphtheria,Pertussis(Acell),Tetanus Vaccine 0.5 ML SDV inactive IM ONE (09:35)
[2016-12-23] MEDS ORDERED: Pneumococcal Polyvalent-23 Vaccine 0.5 ML SDV IM ONE (12:45)
--- NOTE | 2016-12-23 13:35 | PCM.PN ---
- General Info Date of Service: 12/23/16 Admission Dx/Problem (Free Text): Admission Diagnosis/Problem Admission Diagnosis/Problem Alcohol intoxication Functional Status: Reports: pain controlled, tolerating diet, urinating. Denies : new symptoms - Review of Systems General: Denies: Fever, Weakness, Fatigue, Malaise, Chills HEENT: Reports: no symptoms Pulmonary: Denies: shortness of breath Cardiovascular: Denies: Chest Pain, Palpitations, Dyspnea on Exertion Gastrointestinal: Denies: Abdominal pain, Nausea, Vomiting Genitourinary: Reports: no symptoms Musculoskeletal: Reports: no symptoms Neurological: Denies: Seizure Psychiatric: Denies: depression, anxiety, agitation Systems Review Comment:: No overnight or acute issues. She is better but sedated this am. - Patient Data Vitals - most recent: Last Vital Signs Temp 36.1 C 12/23/16 07:59 Pulse 113 H 12/23/16 12:00 Resp 17 12/23/16 12:00 BP 109/73 12/23/16 12:00 Pulse Ox 99 12/23/16 12:00 Weight - most recent: 70.76 kg I&O - last 24 hours: Intake & Output 12/22/16 12/23/16 12/23/16 22:59 06:59 14:59 Intake Total 952 1040 Output Total 700 Balance 952 340 Lab Results last 24 hrs: Laboratory Results - last 24 hr 12/23/16 12/23/16 Range/Units 07:49 12:35 WBC 8.55 (3.98-10.04) K/mm3 RBC 4.16 (3.98-5.22) M/mm3 Hgb 12.7 (11.2-15.7) gm/L Hct 39.0 (34.1-44.9) % MCV 93.8 (79.4-94.8) fl MCH 30.5 (25.6-32.2) pg MCHC 32.6 (32.2-35.5) g/dl RDW Std Deviation 44.1 (36.4-46.3) fL Plt Count 260 (182-369) K/mm3 MPV 8.1 L (9.4-12.3) fl Neut % (Auto) 47.2 (34.0-71.1) % Lymph % (Auto) 38.9 (19.3-51.7) % Hopkins % (Auto) 11.5 (4.7-12.5) % Eos % (Auto) 1.3 (0.7-5.8) Baso % (Auto) 0.7 (0.1-1.2) % Neut # 4.04 (1.56-6.13) K/mm3 Lymph # 3.33 (1.18-3.74) K/mm3 Hopkins # 0.98 H (0.24-0.36) K/mm3 Eos # 0.11 (0.04-0.36) K/mm3 Baso # 0.06 (0.01-0.08) K/mm3 Manual Slide Review Normal smear Sodium 140 (136-145) mEq/L Potassium 3.6 (3.5-5.1) mEq/L Chloride 106 (98-107) mEq/L Carbon Dioxide 26 (21-32) mEq/L Anion Gap 11.6 (5-15) BUN 12 (7-18) mg/dL Creatinine 0.8 (0.55-1.02) mg/dL Est Cr Clr Drug Dosing 81.12 mL/min Estimated GFR (MDRD) > 60 (>60) mL/min BUN/Creatinine Ratio 15.0 (14-18) Glucose 110 H (74-106) mg/dL Calcium 8.1 L (8.5-10.1) mg/dL Magnesium 1.8 (1.8-2.4) mg/dl Med Orders - Current: Current Medications Acetaminophen (Tylenol) 650 mg PO Q4H PRN PRN Reason: Pain (Mild 1-3)/fever Acetaminophen/Hydrocodone Bitart (Thrall 325-5 Mg) 1 tab PO Q4H PRN PRN Reason: Pain (moderate 4-6) Albuterol/Ipratropium (Duoneb 3.0-0.5 Mg/3 Ml) 3 ml NEB Q4H PRN PRN Reason: Shortness Of Breath/wheezing Bisacodyl (Dulcolax) 5 mg PO DAILY PRN PRN Reason: Constipation Chlordiazepoxide HCl (Librium) 25 mg PO QID [facility] Last Admin: 12/23/16 08:50 Dose: 25 mg Clonidine HCl (Catapres) 0.1 mg PO Q8H [facility] Last Admin: 12/23/16 05:12 Dose: Not Given Enoxaparin Sodium (Lovenox) 40 mg SUBCUT DAILY [facility] Last Admin: 12/23/16 08:50 Dose: 40 mg Folic Acid (Folic Acid) 1 mg PO BEDTIME [facility] Hydralazine HCl (Apresoline) 20 mg IVPUSH Q4H PRN PRN Reason: Hypertension Hydromorphone HCl (Dilaudid) 0.25 mg IVPUSH Q2H PRN PRN Reason: Pain (severe 7-10) Last Admin: 12/23/16 08:53 Dose: 0.25 mg Sodium Chloride (Normal Saline) 1,000 mls @ 100 mls/hr IV ASDIRECTED [facility] Last Admin: 12/23/16 03:31 Dose: 100 mls/hr Promethazine HCl 12.5 mg/ (Sodium Chloride) 50.5 mls @ 100 mls/hr IV Q6H PRN PRN Reason: Nausea/Vomiting Last Admin: 12/22/16 22:21 Dose: 100 mls/hr Lorazepam (Ativan) 2 mg IVPUSH Q4H PRN PRN Reason: Seizures Lorazepam (Ativan) 0 mg IVPUSH Q4H PRN; Protocol PRN Reason: Withdrawal Symptoms Magnesium Hydroxide (Milk Of Magnesia) 30 ml PO Q12H PRN PRN Reason: Constipation Magnesium Sulfate (Pharmacy To Dose - Magnesium Replacement) 1 dose .XX ASDIRECTED [facility] Metoprolol Tartrate (Lopressor) 5 mg IVPUSH Q4H PRN PRN Reason: Tachycardia Multivitamins (Thera) 1 each PO BEDTIME [facility] Nicotine (Habitrol) 21 mg TRDERM DAILY [facility] Last Admin: 12/23/16 08:50 Dose: 21 mg Ondansetron HCl (Zofran) 4 mg IV Q4H PRN PRN Reason: Nausea/Vomiting Pantoprazole Sodium (Protonix Iv) 40 mg IV Q12HR [facility] Last Admin: 12/23/16 08:51 Dose: 40 mg Polyethylene Glycol (Miralax) 17 gm PO DAILY PRN PRN Reason: Constipation Potassium Chloride (Pharmacy To Dose - Potassium Replacement) 1 dose .XX ASDIRECTED [facility] Quetiapine Fumarate (Seroquel) 25 mg PO DAILY [facility] Quetiapine Fumarate (Seroquel) 50 mg PO BEDTIME [facility] Senna/Docusate Sodium (Senna Plus) 1 tab PO BID PRN PRN Reason: Constipation Temazepam (Restoril) 30 mg PO BEDTIME PRN PRN Reason: Sleep Last Admin: 12/22/16 22:20 Dose: 30 mg Thiamine HCl (Vitamin B-1) 100 mg PO BEDTIME [facility] Topiramate (Topamax) 25 mg PO BID [facility] Last Admin: 12/23/16 08:50 Dose: 25 mg Topiramate (Topamax) 25 mg PO BEDTIME ONE Stop: 12/23/16 21:51 Discontinued Medications Chlordiazepoxide HCl (Librium) 50 mg PO ONETIME ONE Stop: 12/22/16 21:57 Last Admin: 12/22/16 22:17 Dose: 50 mg Diphenhydramine HCl (Benadryl) 50 mg IVPUSH ONETIME ONE Stop: 12/22/16 21:58 Last Admin: 12/22/16 22:16 Dose: 50 mg Diphtheria/Tetanus/Acell Pertussis (Boostrix) 0.5 ml IM .ONCE ONE Stop: 12/23/16 09:36 Folic Acid (Folic Acid) 1 mg PO ONETIME ONE Stop: 12/22/16 21:52 Last Admin: 12/22/16 22:19 Dose: 1 mg Sodium Chloride (Normal Saline) 1,000 mls @ 1,000 mls/hr IV ONETIME ONE Stop: 12/22/16 19:48 Last Admin: 12/22/16 19:05 Dose: 1,000 mls/hr Potassium Chloride 10 meq/ (Premix) 100 mls @ 100 mls/hr IV Q1H [facility] Stop: 12/23/16 04:59 Last Admin: 12/23/16 05:11 Dose: 100 mls/hr Potassium Chloride (Kcl 10 Meq In Water 100 Ml) Confirm Administered Dose 100 mls @ as directed .ROUTE .STK-MED ONE Stop: 12/23/16 01:02 Last Admin: 12/23/16 01:09 Dose: Not Given Lorazepam (Ativan) 2 mg IVPUSH ONETIME ONE Stop: 12/22/16 22:25 Last Admin: 12/22/16 22:29 Dose: 2 mg Lorazepam (Ativan) 2 mg IVPUSH ONETIME ONE Stop: 12/23/16 08:25 Last Admin: 12/23/16 08:51 Dose: 2 mg Multivitamins (Thera) 1 each PO DAILY ONE Stop: 12/22/16 21:51 Last Admin: 12/22/16 22:35 Dose: 1 each Ondansetron HCl (Zofran) 4 mg IVPUSH ONETIME ONE Stop: 12/22/16 18:50 Last Admin: 12/22/16 19:06 Dose: 4 mg Ondansetron HCl (Zofran) Confirm Administered Dose 4 mg .ROUTE .STK-MED ONE Stop: 12/22/16 19:17 Last Admin: 12/22/16 19:58 Dose: Not Given Pneumococcal Polyvalent Vaccine (Pneumovax 23) 0.5 ml IM .ONCE ONE Stop: 12/23/16 12:46 Potassium Chloride (Klor-Con M20) 20 meq PO Q3H [facility] Stop: 12/23/16 02:01 Last Admin: 12/23/16 00:55 Dose: Not Given Quetiapine Fumarate (Seroquel) 25 mg PO BID [facility] Last Admin: 12/23/16 08:50 Dose: 25 mg Quetiapine Fumarate (Seroquel) 25 mg PO ONETIME ONE Stop: 12/22/16 21:57 Last Admin: 12/22/16 22:19 Dose: 25 mg Thiamine HCl (Vitamin B-1) 200 mg IV ONETIME ONE Stop: 12/22/16 21:52 Last Admin: 12/22/16 22:35 Dose: 200 mg - Exam General: lethargic HEENT: Pupils equal, Pupils reactive, Mucous membr. moist/pink Neck: supple, trachea midline, no JVD Lungs: Clear to auscultation, Normal respiratory effort Cardiovascular: Regular Rate, Regular Rhythm Abdomen: bowel sounds present, soft, no tenderness, no distension (Female) Exam: Deferred Back Exam: normal inspection, decreased range of motion Extremities: no edema, normal pulses, no tenderness/swelling, no clubbing, no cyanosis, no calf tenderness Skin: warm, dry, intact Neurological: no new focal deficit Psy/Mental Status: alert, normal affect, withdrawal symptoms, other (mild tremors) - Problem List Review Problem List Initiated/Reviewed/Updated: Yes - My Orders Last 24 Hours: My Active Orders 12/22/16 21:45 Intake and Output [RC] 04,16 Oxygen Therapy [RC] PRN Up With Assistance [RC] ASDIRECTED Up ad Ros [RC] ASDIRECTED VTE/DVT Education [RC] Vital Signs [RC] Q1HR Acetaminophen [Tylenol] 650 mg PO Q4H PRN Acetaminophen/HYDROcodone [Thrall 325-5 MG] 1 tab PO Q4H PRN Albuterol/Ipratropium [DuoNeb 3.0-0.5 MG/3 ML] 3 ml NEB Q4H PRN Bisacodyl [Dulcolax] 5 mg PO DAILY PRN Docusate Sodium/Sennosides [Senna Plus] 1 tab PO BID PRN HYDROmorphone [Dilaudid] 0.25 mg IVPUSH Q2H PRN Magnesium Hydroxide [Milk of Magnesia] 30 ml PO Q12H PRN Ondansetron [Zofran] 4 mg IV Q4H PRN Polyethylene Glycol 3350 [MiraLAX] 17 gm PO DAILY PRN Promethazine [Phenergan] 12.5 mg Sodium Chloride 0.9% [Normal Saline] 50 ml IV Q6H Temazepam [Restoril] 30 mg PO BEDTIME PRN Resuscitation Status Routine 12/22/16 21:47 RT Aerosol Therapy [RC] ASDIRECTED Consult to Case Management [CONS] Routine Consult to Physician [CONS] Routine Consult to Remelt Operator [CONS] Routine Consult to Spiritual Care [CONS] Routine 12/22/16 21:49 Notify Provider Consults [RC] ASDIRECTED LORazepam [Ativan] 2 mg IVPUSH Q4H PRN Metoprolol Tartrate [Lopressor] 5 mg IVPUSH Q4H PRN hydrALAZINE [Apresoline] 20 mg IVPUSH Q4H PRN 12/22/16 22:00 Magnesium Rep Pharmacy to Dose [Pharmacy to Dose - Magnesium Replacement] 1 dose .XX ASDIRECTED Potassium Rep Pharmacy to Dose [Pharmacy to Dose - Potassium Replacement] 1 dose .XX ASDIRECTED cloNIDine [Catapres] 0.1 mg PO Q8H 12/22/16 22:22 CIWAA Assessment [RC] Q1HR 12/22/16 22:23 Consult for Substance Abuse [CONS] Routine LORazepam [Ativan] See Protocol IVPUSH Q4H PRN 12/22/16 Dinner Regular Diet [DIET] 12/23/16 09:00 Enoxaparin [Lovenox] 40 mg SUBCUT DAILY Nicotine [Habitrol] 21 mg TRDERM DAILY Pantoprazole [Protonix IV] 40 mg IV Q12HR Topiramate [Topamax] 25 mg PO BID chlordiazePOXIDE [Librium] 25 mg PO QID 12/23/16 09:35 Vaccines to be Administered [RC] PER UNIT ROUTINE 12/23/16 10:56 AMPHET/METH EXT CONF (GCMS) Routine 12/23/16 10:57 CARBOXY-THC BY GC/MS Routine 12/23/16 13:02 URINALYSIS W/MICROSCOPIC [UA W/MICROSCOPIC] [URIN] Routine 12/23/16 21:00 Folic Acid 1 mg PO BEDTIME Multivitamins,Therapeutic [Thera] 1 each PO BEDTIME Thiamine [Vitamin B-1] 100 mg PO BEDTIME 12/23/16 21:50 Topiramate [Topamax] 25 mg PO BEDTIME ONE 12/24/16 05:11 BASIC METABOLIC PANEL,BMP [CHEM] AM CBC WITH AUTO DIFF [HEME] AM MAGNESIUM [CHEM] AM 12/25/16 05:11 BASIC METABOLIC PANEL,BMP [CHEM] AM CBC WITH AUTO DIFF [HEME] AM MAGNESIUM [CHEM] AM 12/26/16 05:11 BASIC METABOLIC PANEL,BMP [CHEM] AM CBC WITH AUTO DIFF [HEME] AM MAGNESIUM [CHEM] AM 12/27/16 05:11 BASIC METABOLIC PANEL,BMP [CHEM] AM CBC WITH AUTO DIFF [HEME] AM MAGNESIUM [CHEM] AM 12/28/16 05:11 BASIC METABOLIC PANEL,BMP [CHEM] AM CBC WITH AUTO DIFF [HEME] AM MAGNESIUM [CHEM] AM - Plan Plan:: Assessment: ETOH Intoxication - MARLENA level is 0.32 - [facility] protocol - Ativan/Librium/Clonidine/Topamax/Seroquel/Benadryl - Hydralzine and IVP BB for HR/BP control - Ativan for Abortive Seizure and Withdrawal Symptoms - Restoril for Insomnia Poly-Substance Abuse - UDS: pos Amphetamine/Meth, Cocaine and Marijuana - Counseled on Substance Abuse - Awaiting SA/Psych consult Tobacco Dependence - Nicotine patch - Counseled on Smoking Cessation Chronic ETOH Abuse - [facility] protocol as above Resolved: S/p Leukocytosis - WBC 13K - Likely 2/2 Stress S/p Hypokalemia - 2/2 Inadequate intake - Will replete and monitor Plan: She is clinically stable Routine AM Labs MVI, Folic, Acid and Thiamine CIWA protocol Ativan for Abortive Seizure and Withdrawal Symptoms Restoril for Insomnia PRN meds for Withdrawal Symptoms Aspiration/Seizure Precautions SW/CM d/c planning Awaiting /Philip consult Code Status: 1
[2016-12-23] MEDS ORDERED: cefTRIAXone 1 GM in Sodium Chloride 0.9% 100 ML IV ONE (17:58)
[2016-12-23] MEDS: Acetaminophen/HYDROcodone 325-5 MG Tab PO PRN (18:23)
--- NOTE | 2016-12-23 19:51 | CONS ---
CONSULTING PHYSICIAN: Amado Montes LAC DATE OF CONSULTATION: 12/23/2016 TIME: 6:32 p.m. CHIEF COMPLAINT: The patient is a 26-year-old female, who presents to [facility] with a history of chronic polysubstance dependence. She is presenting positive for amphetamine/methamphetamine, cocaine, and marijuana with an accompanying MARLENA of 0.31. SOURCE OF INFORMATION: Patient, past records, RN notes reviewed, and outreach and education social worker consultation. PSYCHOSOCIAL HISTORY: Family: The patient reports she was raised in [place], [place], by her mother. Her parents split up when she was 7 years old. She has one half- brother, one half-sister, and she is her mother's only child. The patient describes her life growing up "it was turmoil, and I had to grow up way too fast and had to watch my mom because she was an alcoholic. My life is filled with distractions. I did dance for 17 years and that was my outlet. I was always worried." She states her mother was an alcoholic and has been sober for the past 5-1/2 years. The patient has never been and states she will never be because "I am addicted to money. I want to have it all. In my form of having at all is owning my own business and having money." Developmental: the patient reports that she graduated from [employer] in 2008, where she maintained above-average grades. The patient did complete some college at the [employer]. When asked about critical or traumatic events, she replies "my dad killed himself a year ago in November. I have not mourned yet because I do not want to do and I do not see why I need to. My brother killed himself too. My mom was emotionally vacant and I got everything I wanted growing up financially, but there was no relationship with mom. My dad sold drugs and I was a part of it. I sold and used drugs. I was a functional junky. I used with my father and brother and sister. I have more ambition than them. They were always high. I did not use as much." Socioeconomic: The patient reports that after she graduated from high school, she went to college at the [employer]. She was there 2 years and received a business associates degree with a minor in psychology. 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 SUBSTANCE ABUSE HISTORY: Nicotine: The patient reports that she started smoking a year and a half ago and currently smokes a pack a day. Alcohol: The patient reports she started drinking at age 24 because of her mother's drinking. When asked why she started to drink, she replies "it was okay because I was bored, I drank after work." After she began drinking, she typically drank about 5 times a week anywhere from 4-5 shots of vodka to a bottle. This pattern continued until 2014, when she quit from October to May because she was in [facility]. She states that prior to her incarceration, she drink every day and could drink a 1.75 every 2 days. This pattern lasted from May 2015 to April of 2016. At that time, she was admitted to [facility] to detox because she states her kidneys were hurting. She did not follow through with treatment following discharge, but started counseling with Dr. Mathis. She was sentenced to [facility], 05/09/2016 to 10/18/2016, and did not drink during that time. However, since she has been out of [facility], she has been drinking a 1.75 of vodka a day and states that she can only go 45 minutes without alcohol in her system. After 45 minutes, she will go into withdrawal and experiences alcohol-related seizures. The patient is reporting that yesterday she tried to quit drinking and experienced 3 alcohol-related seizures and that is why she came to [facility] for medical detox. Cannabis: The patient reports that she started smoking weed in the 3rd grade. She smoked 3 times a week until high school. While in high school, she smoked every day going to about half ounce a week. Since that time, she has been smoking 20 bag a week with the exception of her time in [facility]. She states that she has no intention of quitting smoking cannabis because she has extreme anxiety and weed is the only thing that can keep her calm. Heroin: The patient reports that she started using heroin at age 14. During the time of her use, she shot up on Saturday and Monday. She states that she preferred needles, and she typically used 2 shots a week until age 19. After that, she repots she reports her use escalated to 4 times a week and states that she quit in 2013. She reports that she did not go through bad withdrawals because her mind was made up that she just wanted to quit using. However, she then reports that she did go through 2 days of physical withdrawals. A prescription drug monitoring report was pulled, and it does indicate that in 2013 and 2014, she was prescribed opiates. However, there have been no prescription opiates since that time. Methamphetamine: The patient reports that she started using methamphetamine in June of 2014. She uses IV and typically used an 8 ball a week. She used from June to January 2015 when she was arrested. She did in total 7 months on the charge and when she came out in October 2016, she began using again. She states that she has she is currently using a 0.25 g a week and still is using IV. However, during the course of our conversation, the patient did admit that she does have an unlimited supply and access to methamphetamine. The patient does experience withdrawals, paranoia, manic depression, aching, and fatigue. DIAGNOSIS: The patient meets DSM-5 criteria for the following diagnosis: 1. F10.20, alcohol use disorder, severe. 2. F15.20, stimulant use disorder, severe, methamphetamine type. 3. F12.20, cannabis use disorder, severe. 4. F11.20, opioid use disorder, severe. 5. F17.200, tobacco use disorder, severe. The patient is positive on this admission for cocaine. However, she is reporting that she has only snorted a line 3 times in her life and she does not like the feeling from cocaine. No diagnosis will be given at this time. ASAM DIMENSIONS: 1. Dimension 1: Score 2. The patient has some difficulty tolerating and coping with withdrawal discomfort. Intoxication may be severe, but responds to support and treatment such that the client does not immediately endanger self or others. She displays moderate signs and symptoms with moderate risk of severe withdrawal. 2. Dimension 2: Score 0. The patient displays full functioning with good ability to cope with physical discomfort. No serious medical issues at this time with the exception of an elevated liver panel. 3. Dimension 3: Score 1. The patient presents with a [id number] risk of harm to self or others. However, may have a mental health diagnosis. She appears to be functioning adequately in significant life areas, even though her drinking is pervasive. She states that she considers herself a functioning addict. 4. Dimension 4: Score 3. The patient displays verbal compliance, but lacks consistent behaviors. She has a low motivation for change or for treatment. However she does have an awareness of her addictions and appears to be in the contemplation stage of change. 5. Dimension 5: Score 3. The patient displays a high vulnerability for further substance use and has little recognition or understanding of relapse and recidivism issues. 6. Dimension 6: Score 3. The patient is engaged in a part-time employment. However, peers, family, and significant others are all using and there is criminal justice involvement. ASSESSMENT SUMMARY: The patient presents as polysubstance dependent that is biologically driven as well as learned. She has been using multiple drugs and alcohol since age 9 with her parents and siblings. We discussed her request for treatment and wanting to obtain custody of her sister's children. After discussion, the patient verbalized that she probably would not be able to get custody of the children because of her own situation. The patient also verbalized that although she wants to quit using and drinking, this admission she just wanted medical detox because of her seizures. She goes on to state that she does not want to participate in substance abuse treatment and wants to get clean on her own. 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 We discussed what would happen if she went to substance abuse treatment and return to her life in [place] the patient verbalized that substance abuse treatment would not be effective for her as she is not changing her lifestyle. All options for continuing substance abuse treatment were offered to the patient. However, she is unamenable at this time to professional intervention. This is the patient's second admission in a year for substance- related detox and although her IV drug use and alcoholism continues, she is not meeting imminent danger for an involuntary commitment. RECOMMENDATION: The patient meets ASAM criteria for level 3.5. However, that level is not available in our area. The patient will be referred to a comparable level 3.1 with a mental health component. The patient is referred to [facility] level 3.1, clinically managed, low-intensity residential treatment. FLORENCIA Cárdenas, will contact [facility] representatives with this referral. POLLO /[phone]
[2016-12-23] MEDS: QUEtiapine 25 MG Tab PO SCH (20:59)
[2016-12-23] MEDS: Folic Acid 1 MG Tab PO SCH (21:00)
[2016-12-23] MEDS: Multivitamins,Therapeutic Tab PO SCH (21:00)
[2016-12-23] MEDS: Thiamine 100 MG Tab PO SCH (21:00)
[2016-12-23] MEDS ORDERED: Topiramate 25 MG Tab PO ONE (21:50)
[2016-12-24] MEDS: cloNIDine 0.1 MG Tab PO SCH ×4 (06:54→21:28)
[2016-12-24] MEDS ORDERED: Magnesium Oxide 400 MG Tab PO ONE (08:45)
[2016-12-24] MEDS ORDERED: Topiramate 25 MG Tab PO SCH (09:00)
[2016-12-24] MEDS: diphenhydrAMINE 50 MG/ML SDV IVPUSH PRN ×2 (09:08→18:48)
[2016-12-24] MEDS: Pantoprazole 40 MG Vial IV SCH ×2 (09:10→21:07)
[2016-12-24] MEDS: Nicotine 21 MG/24 Hr Patch TRDERM SCH (09:10)
[2016-12-24] MEDS: Acetaminophen/HYDROcodone 325-5 MG Tab PO PRN (09:10)
[2016-12-24] MEDS: Enoxaparin 40 MG/0.4 ML Syringe SUBCUT SCH (09:10)
[2016-12-24] MEDS: chlordiazePOXIDE 25 MG Cap PO SCH ×3 (09:12→21:06)
[2016-12-24] MEDS: Topiramate 25 MG Tab PO SCH (09:12)
[2016-12-24] MEDS: QUEtiapine 25 MG Tab PO SCH ×2 (09:12→21:03)
[2016-12-24] MEDS: Dextroamphetamine/Amphetamine [Adderall Xr 10 Mg Capsule] PO SCH (09:14)
--- NOTE | 2016-12-24 09:18 | PCM.PN ---
- General Info Date of Service: 12/24/16 Admission Dx/Problem (Free Text): Admission Diagnosis/Problem Admission Diagnosis/Problem Alcohol intoxication Subjective Update: Follow Up Functional Status: Reports: pain controlled, tolerating diet, ambulating, urinating, new symptoms - Review of Systems General: Denies: Fever, Weakness, Fatigue, Malaise, Chills HEENT: Reports: no symptoms Pulmonary: Denies: shortness of breath Cardiovascular: Denies: Chest Pain Gastrointestinal: Denies: Abdominal pain, Nausea, Vomiting Genitourinary: Denies: dysuria Musculoskeletal: Denies: neck pain Skin: Denies: cyanosis, jaundice, mottled Neurological: Reports: Other (somewhat lethargic). Denies: Confusion, Dizziness , Seizure, Difficulty Walking, Gait Disturbance Psychiatric: Denies: anxiety, hallucinations Systems Review Comment:: No overnight or acute issues. She has no new complaints. CIWA score is considerably high. Both hand still shakes moderately. - Patient Data Vitals - most recent: Last Vital Signs Temp 36.3 C 12/24/16 04:24 Pulse 77 12/24/16 04:24 Resp 16 12/24/16 04:24 BP 120/57 L 12/24/16 06:54 Pulse Ox 95 12/24/16 04:24 Weight - most recent: 70.76 kg I&O - last 24 hours: Intake & Output 12/23/16 12/24/16 12/24/16 22:59 06:59 14:59 Intake Total 2260 400 Output Total 630 Balance 2260 -230 Lab Results last 24 hrs: Laboratory Results - last 24 hr 12/23/16 12/23/16 12/24/16 Range/Units 12:35 17:15 05:52 WBC 5.20 (3.98-10.04) K/mm3 RBC 3.94 L (3.98-5.22) M/mm3 Hgb 11.8 (11.2-15.7) gm/L Hct 36.6 (34.1-44.9) % MCV 92.9 (79.4-94.8) fl MCH 29.9 (25.6-32.2) pg MCHC 32.2 (32.2-35.5) g/dl RDW Std Deviation 43.1 (36.4-46.3) fL Plt Count 240 (182-369) K/mm3 MPV 8.6 L (9.4-12.3) fl Neut % (Auto) 37.6 (34.0-71.1) % Lymph % (Auto) 48.1 (19.3-51.7) % [place] % (Auto) 11.2 (4.7-12.5) % Eos % (Auto) 2.5 (0.7-5.8) Baso % (Auto) 0.4 (0.1-1.2) % Neut # 1.96 (1.56-6.13) K/mm3 Lymph # 2.50 (1.18-3.74) K/mm3 [place] # 0.58 H (0.24-0.36) K/mm3 Eos # 0.13 (0.04-0.36) K/mm3 Baso # 0.02 (0.01-0.08) K/mm3 Sodium 140 (136-145) mEq/L Potassium 3.6 (3.5-5.1) mEq/L Chloride 106 (98-107) mEq/L Carbon Dioxide 26 (21-32) mEq/L Anion Gap 11.6 (5-15) BUN 12 (7-18) mg/dL Creatinine 0.8 (0.55-1.02) mg/dL Est Cr Clr Drug Dosing 81.12 mL/min Estimated GFR (MDRD) > 60 (>60) mL/min BUN/Creatinine Ratio 15.0 (14-18) Glucose 110 H (74-106) mg/dL Calcium 8.1 L (8.5-10.1) mg/dL Magnesium 1.8 (1.8-2.4) mg/dl Urine Color Light yellow (Yellow) Urine Appearance Slt cloudy H (Clear) Urine pH 6.0 (5.0-8.0) Ur Specific [place] > or = 1.030 (1.005-1.030) Urine Protein Trace H (Negative) Urine Glucose (UA) Negative (Negative) Urine Ketones Negative (Negative) Urine Occult Blood Negative (Negative) Urine Nitrite Positive H (Negative) Urine Bilirubin Negative (Negative) Urine Urobilinogen 0.2 (0.2-1.0) Ur Leukocyte Esterase Trace H (Negative) Urine RBC 0-5 (0-5) /hpf Urine WBC 20-30 H (0-5) /hpf Ur Squamous Epith Cells 20-30 H (0-5) /hpf Urine Bacteria Many H (FEW) /hpf Urine Mucus Not seen (FEW) /hpf 12/24/16 Range/Units 05:52 WBC (3.98-10.04) K/mm3 RBC (3.98-5.22) M/mm3 Hgb (11.2-15.7) gm/L Hct (34.1-44.9) % MCV (79.4-94.8) fl MCH (25.6-32.2) pg MCHC (32.2-35.5) g/dl RDW Std Deviation (36.4-46.3) fL Plt Count (182-369) K/mm3 MPV (9.4-12.3) fl Neut % (Auto) (34.0-71.1) % Lymph % (Auto) (19.3-51.7) % [place] % (Auto) (4.7-12.5) % Eos % (Auto) (0.7-5.8) Baso % (Auto) (0.1-1.2) % Neut # (1.56-6.13) K/mm3 Lymph # (1.18-3.74) K/mm3 [place] # (0.24-0.36) K/mm3 Eos # (0.04-0.36) K/mm3 Baso # (0.01-0.08) K/mm3 Sodium 141 (136-145) mEq/L Potassium 3.5 (3.5-5.1) mEq/L Chloride 108 H (98-107) mEq/L Carbon Dioxide 25 (21-32) mEq/L Anion Gap 11.5 (5-15) BUN 9 (7-18) mg/dL Creatinine 0.7 (0.55-1.02) mg/dL Est Cr Clr Drug Dosing 92.71 mL/min Estimated GFR (MDRD) > 60 (>60) mL/min BUN/Creatinine Ratio 12.9 L (14-18) Glucose 104 (74-106) mg/dL Calcium 8.2 L (8.5-10.1) mg/dL Magnesium 1.7 L (1.8-2.4) mg/dl Urine Color (Yellow) Urine Appearance (Clear) Urine pH (5.0-8.0) Ur Specific [place] (1.005-1.030) Urine Protein (Negative) Urine Glucose (UA) (Negative) Urine Ketones (Negative) Urine Occult Blood (Negative) Urine Nitrite (Negative) Urine Bilirubin (Negative) Urine Urobilinogen (0.2-1.0) Ur Leukocyte Esterase (Negative) Urine RBC (0-5) /hpf Urine WBC (0-5) /hpf Ur Squamous Epith Cells (0-5) /hpf Urine Bacteria (FEW) /hpf Urine Mucus (FEW) /hpf Med Orders - Current: Current Medications Acetaminophen (Tylenol) 650 mg PO Q4H PRN PRN Reason: Pain (Mild 1-3)/fever Acetaminophen/Hydrocodone Bitart ([place] 325-5 Mg) 1 tab PO Q4H PRN PRN Reason: Pain (moderate 4-6) Last Admin: 12/23/16 18:23 Dose: 1 tab Albuterol/Ipratropium (Duoneb 3.0-0.5 Mg/3 Ml) 3 ml NEB Q4H PRN PRN Reason: Shortness Of Breath/wheezing Bisacodyl (Dulcolax) 5 mg PO DAILY PRN PRN Reason: Constipation Chlordiazepoxide HCl (Librium) 25 mg PO TID [facility] Last Admin: 12/24/16 09:12 Dose: 25 mg Clonidine HCl (Catapres) 0.1 mg PO Q8H [facility] Last Admin: 12/24/16 06:54 Dose: 0.1 mg Diphenhydramine HCl (Benadryl) 25 mg IVPUSH Q6H PRN PRN Reason: Itching Last Admin: 12/24/16 09:08 Dose: 25 mg Enoxaparin Sodium (Lovenox) 40 mg SUBCUT DAILY [facility] Last Admin: 12/24/16 09:10 Dose: 40 mg Folic Acid (Folic Acid) 1 mg PO BEDTIME [facility] Last Admin: 12/23/16 21:00 Dose: 1 mg Hydralazine HCl (Apresoline) 20 mg IVPUSH Q4H PRN PRN Reason: Hypertension Hydromorphone HCl (Dilaudid) 0.25 mg IVPUSH Q2H PRN PRN Reason: Pain (severe 7-10) Last Admin: 12/23/16 08:53 Dose: 0.25 mg Sodium Chloride (Normal Saline) 1,000 mls @ 100 mls/hr IV ASDIRECTED [facility] Last Admin: 12/23/16 14:46 Dose: 100 mls/hr Promethazine HCl 12.5 mg/ (Sodium Chloride) 50.5 mls @ 100 mls/hr IV Q6H PRN PRN Reason: Nausea/Vomiting Last Admin: 12/22/16 22:21 Dose: 100 mls/hr Lorazepam (Ativan) 2 mg IVPUSH Q4H PRN PRN Reason: Seizures Last Admin: 12/24/16 01:20 Dose: 2 mg Lorazepam (Ativan) 0 mg IVPUSH Q4H PRN; Protocol PRN Reason: Withdrawal Symptoms Magnesium Hydroxide (Milk Of Magnesia) 30 ml PO Q12H PRN PRN Reason: Constipation Magnesium Sulfate (Pharmacy To Dose - Magnesium Replacement) 1 dose .XX ASDIRECTED [facility] Metoprolol Tartrate (Lopressor) 5 mg IVPUSH Q4H PRN PRN Reason: Tachycardia Multivitamins (Thera) 1 each PO BEDTIME [facility] Last Admin: 12/23/16 21:00 Dose: 1 each Nicotine (Habitrol) 21 mg TRDERM DAILY [facility] Last Admin: 12/24/16 09:10 Dose: 21 mg Ondansetron HCl (Zofran) 4 mg IV Q4H PRN PRN Reason: Nausea/Vomiting Last Admin: 12/24/16 01:19 Dose: 4 mg Pantoprazole Sodium (Protonix Iv) 40 mg IV Q12HR [facility] Last Admin: 12/24/16 09:10 Dose: 40 mg Dextroamphetamine/Amphetamine [ Adderall Xr 10 Mg Capsule] 0 each PO DAILY [facility] Last Admin: 12/24/16 09:14 Dose: Not Given Polyethylene Glycol (Miralax) 17 gm PO DAILY PRN PRN Reason: Constipation Potassium Chloride (Pharmacy To Dose - Potassium Replacement) 1 dose .XX ASDIRECTED [facility] Quetiapine Fumarate (Seroquel) 25 mg PO DAILY [facility] Last Admin: 12/24/16 09:12 Dose: 25 mg Quetiapine Fumarate (Seroquel) 50 mg PO BEDTIME [facility] Last Admin: 12/23/16 20:59 Dose: 50 mg Senna/Docusate Sodium (Senna Plus) 1 tab PO BID PRN PRN Reason: Constipation Temazepam (Restoril) 30 mg PO BEDTIME PRN PRN Reason: Sleep Last Admin: 12/22/16 22:20 Dose: 30 mg Thiamine HCl (Vitamin B-1) 100 mg PO BEDTIME [facility] Last Admin: 12/23/16 21:00 Dose: 100 mg Topiramate (Topamax) 25 mg PO DAILY [facility] Last Admin: 12/24/16 09:12 Dose: 25 mg Discontinued Medications Chlordiazepoxide HCl (Librium) 25 mg PO QID [facility] Last Admin: 12/23/16 21:00 Dose: 25 mg Chlordiazepoxide HCl (Librium) 50 mg PO ONETIME ONE Stop: 12/22/16 21:57 Last Admin: 12/22/16 22:17 Dose: 50 mg Diphenhydramine HCl (Benadryl) 50 mg IVPUSH ONETIME ONE Stop: 12/22/16 21:58 Last Admin: 12/22/16 22:16 Dose: 50 mg Diphtheria/Tetanus/Acell Pertussis (Boostrix) 0.5 ml IM .ONCE ONE Stop: 12/23/16 09:36 Folic Acid (Folic Acid) 1 mg PO ONETIME ONE Stop: 12/22/16 21:52 Last Admin: 12/22/16 22:19 Dose: 1 mg Sodium Chloride (Normal Saline) 1,000 mls @ 1,000 mls/hr IV ONETIME ONE Stop: 12/22/16 19:48 Last Admin: 12/22/16 19:05 Dose: 1,000 mls/hr Potassium Chloride 10 meq/ (Premix) 100 mls @ 100 mls/hr IV Q1H [facility] Stop: 12/23/16 04:59 Last Admin: 12/23/16 05:11 Dose: 100 mls/hr Potassium Chloride (Kcl 10 Meq In Water 100 Ml) Confirm Administered Dose 100 mls @ as directed .ROUTE .STK-MED ONE Stop: 12/23/16 01:02 Last Admin: 12/23/16 01:09 Dose: Not Given Ceftriaxone Sodium 1 gm/ (Sodium Chloride) 100 mls @ 200 mls/hr IV ONETIME ONE Stop: 12/23/16 18:27 Last Admin: 12/23/16 18:22 Dose: 200 mls/hr Lorazepam (Ativan) 2 mg IVPUSH ONETIME ONE Stop: 12/22/16 22:25 Last Admin: 12/22/16 22:29 Dose: 2 mg Lorazepam (Ativan) 2 mg IVPUSH ONETIME ONE Stop: 12/23/16 08:25 Last Admin: 12/23/16 08:51 Dose: 2 mg Magnesium Oxide (Magnesium Oxide) 800 mg PO ONETIME ONE Stop: 12/24/16 08:46 Last Admin: 12/24/16 09:12 Dose: 800 mg Multivitamins (Thera) 1 each PO DAILY ONE Stop: 12/22/16 21:51 Last Admin: 12/22/16 22:35 Dose: 1 each Ondansetron HCl (Zofran) 4 mg IVPUSH ONETIME ONE Stop: 12/22/16 18:50 Last Admin: 12/22/16 19:06 Dose: 4 mg Ondansetron HCl (Zofran) Confirm Administered Dose 4 mg .ROUTE .STK-MED ONE Stop: 12/22/16 19:17 Last Admin: 12/22/16 19:58 Dose: Not Given Pneumococcal Polyvalent Vaccine (Pneumovax 23) 0.5 ml IM .ONCE ONE Stop: 12/23/16 12:46 Potassium Chloride (Klor-Con M20) 20 meq PO Q3H [facility] Stop: 12/23/16 02:01 Last Admin: 12/23/16 00:55 Dose: Not Given Quetiapine Fumarate (Seroquel) 25 mg PO BID [facility] Last Admin: 12/23/16 08:50 Dose: 25 mg Quetiapine Fumarate (Seroquel) 25 mg PO ONETIME ONE Stop: 12/22/16 21:57 Last Admin: 12/22/16 22:19 Dose: 25 mg Thiamine HCl (Vitamin B-1) 200 mg IV ONETIME ONE Stop: 12/22/16 21:52 Last Admin: 12/22/16 22:35 Dose: 200 mg Topiramate (Topamax) 25 mg PO BID [facility] Last Admin: 12/23/16 21:01 Dose: 25 mg Topiramate (Topamax) 25 mg PO BEDTIME ONE Stop: 12/23/16 21:51 Last Admin: 12/23/16 21:00 Dose: 25 mg Topiramate (Topamax) 25 mg PO DAILY [facility] - Exam General: alert, oriented, cooperative, no acute distress HEENT: Pupils equal, Pupils reactive, EOMI, Mucous membr. moist/pink Neck: supple, trachea midline, no JVD Lungs: Clear to auscultation, Normal respiratory effort Cardiovascular: Regular Rhythm, Tachycardia (mildly fast) Abdomen: bowel sounds present, soft, no tenderness, no distension (Female) Exam: Deferred Back Exam: normal inspection, decreased range of motion Extremities: no edema, normal pulses, no tenderness/swelling, no clubbing, no cyanosis, no calf tenderness Skin: warm, dry, intact Neurological: no new focal deficit Psy/Mental Status: alert, normal affect, normal mood - Problem List Review Problem List Initiated/Reviewed/Updated: Yes - My Orders Last 24 Hours: My Active Orders 12/23/16 09:00 Enoxaparin [Lovenox] 40 mg SUBCUT DAILY Nicotine [Habitrol] 21 mg TRDERM DAILY Pantoprazole [Protonix IV] 40 mg IV Q12HR 12/23/16 09:35 Vaccines to be Administered [RC] PER UNIT ROUTINE 12/23/16 10:56 AMPHET/METH EXT CONF (GCMS) Routine 12/23/16 10:57 CARBOXY-THC BY GC/MS Routine 12/23/16 21:00 Folic Acid 1 mg PO BEDTIME Multivitamins,Therapeutic [Thera] 1 each PO BEDTIME Thiamine [Vitamin B-1] 100 mg PO BEDTIME 12/24/16 02:52 Transfer Patient (Change bed) [ADT] Routine 12/24/16 08:59 diphenhydrAMINE [Benadryl] 25 mg IVPUSH Q6H PRN 12/24/16 09:00 Patient's Own Medication [Ptom] 0 each PO DAILY Topiramate [Topamax] 25 mg PO DAILY chlordiazePOXIDE [Librium] 25 mg PO TID 12/25/16 05:11 BASIC METABOLIC PANEL,BMP [CHEM] AM CBC WITH AUTO DIFF [HEME] AM MAGNESIUM [CHEM] AM 12/26/16 05:11 BASIC METABOLIC PANEL,BMP [CHEM] AM CBC WITH AUTO DIFF [HEME] AM MAGNESIUM [CHEM] AM 12/27/16 05:11 BASIC METABOLIC PANEL,BMP [CHEM] AM CBC WITH AUTO DIFF [HEME] AM MAGNESIUM [CHEM] AM 12/28/16 05:11 BASIC METABOLIC PANEL,BMP [CHEM] AM CBC WITH AUTO DIFF [HEME] AM MAGNESIUM [CHEM] AM - Plan Plan:: Assessment: ETOH Intoxication - MARLENA level is 0.32 - CIWA protocol - Ativan/Librium/Clonidine/Topamax/Seroquel - Hydralzine and IVP BB for HR/BP control - Ativan for Abortive Seizure and Withdrawal Symptoms - Restoril for Insomnia Poly-Substance Abuse - UDS: pos Amphetamine/Meth, Cocaine and Marijuana - Counseled on Substance Abuse - Awaiting SA/Psych consult - SA recommends: Demarcus as she is low acuity patient Tobacco Dependence - Nicotine patch - Counseled on Smoking Cessation Chronic ETOH Abuse - CIWA protocol as above Anxiety - Consulted Dr. Cruz - He made changes to her Seroquel dosing Resolved: S/p Leukocytosis - WBC 13K - Likely 2/2 Stress S/p Hypokalemia - 2/2 Inadequate intake - Will replete and monitor Plan: She is fairly stable; with mild-mod withdrawal symptoms Continue current treatment Routine AM Labs MVI, Folic, Acid and Thiamine CIWA protocol Ativan for Abortive Seizure and Withdrawal Symptoms Restoril for Insomnia PRN meds for Withdrawal Symptoms Aspiration/Seizure Precautions SW/CM d/c planning Code Status: 1
[2016-12-24] MEDS: HYDROmorphone 1 MG/ML Syringe IVPUSH PRN ×3 (09:33→18:46)
[2016-12-24] MEDS: LORazepam 2 MG/ML MDV IVPUSH PRN ×3 (11:52→21:21)
[2016-12-24] MEDS: HYDROmorphone 0.5 MG/0.5 ML Syringe IVPUSH PRN (20:59)
[2016-12-24] MEDS ORDERED: Temazepam 15 MG Cap PO PRN (21:00)
[2016-12-24] MEDS: Folic Acid 1 MG Tab PO SCH (21:02)
[2016-12-24] MEDS: Thiamine 100 MG Tab PO SCH (21:04)
[2016-12-24] MEDS: Multivitamins,Therapeutic Tab PO SCH (21:04)
[2016-12-24] MEDS: Sodium Chloride 0.9% 1,000 ML IV SCH (21:08)
[2016-12-25] MEDS: LORazepam 2 MG/ML MDV IVPUSH PRN ×2 (02:09→06:52)
[2016-12-25] MEDS: diphenhydrAMINE 50 MG/ML SDV IVPUSH PRN ×2 (02:11→09:12)
[2016-12-25] MEDS: HYDROmorphone 0.5 MG/0.5 ML Syringe IVPUSH PRN ×2 (02:11→06:53)
[2016-12-25] MEDS: Sodium Chloride 0.9% 1,000 ML IV SCH (06:54)
[2016-12-25] MEDS: cloNIDine 0.1 MG Tab PO SCH (06:54)
[2016-12-25] MEDS: QUEtiapine 25 MG Tab PO SCH (08:57)
[2016-12-25] MEDS: Nicotine 21 MG/24 Hr Patch TRDERM SCH (08:57)
[2016-12-25] MEDS: chlordiazePOXIDE 25 MG Cap PO SCH (08:57)
[2016-12-25] MEDS: Enoxaparin 40 MG/0.4 ML Syringe SUBCUT SCH (08:57)
[2016-12-25] MEDS: Topiramate 25 MG Tab PO SCH (08:57)
[2016-12-25] MEDS: Pantoprazole 40 MG Vial IV SCH (08:58)
[2016-12-25 09:15] VITALS: BP 106/73
[2016-12-25] MEDS: Dextroamphetamine/Amphetamine [Adderall Xr 10 Mg Capsule] PO SCH (09:21)
--- NOTE | 2016-12-25 10:03 | PCM.PN ---
- General Info Date of Service: 12/25/16 Admission Dx/Problem (Free Text): Admission Diagnosis/Problem Admission Diagnosis/Problem Alcohol intoxication Subjective Update: Follow Up Functional Status: Reports: pain controlled, tolerating diet, ambulating, urinating. Denies: new symptoms - Patient Data Vitals - most recent: Last Vital Signs Temp 36.5 C 12/25/16 08:11 Pulse 68 12/25/16 08:11 Resp 18 12/25/16 08:11 BP 106/73 12/25/16 08:11 Pulse Ox 99 12/25/16 08:11 Weight - most recent: 73.119 kg I&O - last 24 hours: Intake & Output 12/24/16 12/25/16 12/25/16 22:59 06:59 14:59 Intake Total 1480 2418 Output Total 500 1350 Balance 980 1068 Lab Results last 24 hrs: Laboratory Results - last 24 hr 12/25/16 12/25/16 Range/Units 06:41 06:41 WBC 4.69 (3.98-10.04) K/mm3 RBC 4.22 (3.98-5.22) M/mm3 Hgb 12.6 (11.2-15.7) gm/L Hct 39.5 (34.1-44.9) % MCV 93.6 (79.4-94.8) fl MCH 29.9 (25.6-32.2) pg MCHC 31.9 L (32.2-35.5) g/dl RDW Std Deviation 43.3 (36.4-46.3) fL Plt Count 219 (182-369) K/mm3 MPV 8.8 L (9.4-12.3) fl Neut % (Auto) 31.4 L (34.0-71.1) % Lymph % (Auto) 53.5 H (19.3-51.7) % [place] % (Auto) 10.2 (4.7-12.5) % Eos % (Auto) 4.3 (0.7-5.8) Baso % (Auto) 0.4 (0.1-1.2) % Neut # 1.47 L (1.56-6.13) K/mm3 Lymph # 2.51 (1.18-3.74) K/mm3 [place] # 0.48 H (0.24-0.36) K/mm3 Eos # 0.20 (0.04-0.36) K/mm3 Baso # 0.02 (0.01-0.08) K/mm3 Manual Slide Review Normal smear Sodium 140 (136-145) mEq/L Potassium 3.7 (3.5-5.1) mEq/L Chloride 107 (98-107) mEq/L Carbon Dioxide 25 (21-32) mEq/L Anion Gap 11.7 (5-15) BUN 9 (7-18) mg/dL Creatinine 0.8 (0.55-1.02) mg/dL Est Cr Clr Drug Dosing 81.12 mL/min Estimated GFR (MDRD) > 60 (>60) mL/min BUN/Creatinine Ratio 11.3 L (14-18) Glucose 90 (74-106) mg/dL Calcium 8.4 L (8.5-10.1) mg/dL Magnesium 1.8 (1.8-2.4) mg/dl Med Orders - Current: Current Medications Acetaminophen (Tylenol) 650 mg PO Q4H PRN PRN Reason: Pain (Mild 1-3)/fever Acetaminophen/Hydrocodone Bitart ([place] 325-5 Mg) 1 tab PO Q4H PRN PRN Reason: Pain (moderate 4-6) Last Admin: 12/24/16 09:10 Dose: 1 tab Albuterol/Ipratropium (Duoneb 3.0-0.5 Mg/3 Ml) 3 ml NEB Q4H PRN PRN Reason: Shortness Of Breath/wheezing Bisacodyl (Dulcolax) 5 mg PO DAILY PRN PRN Reason: Constipation Chlordiazepoxide HCl (Librium) 25 mg PO TID [facility] Last Admin: 12/25/16 08:57 Dose: 25 mg Clonidine HCl (Catapres) 0.1 mg PO Q8H [facility] Last Admin: 12/25/16 06:54 Dose: 0.1 mg Diphenhydramine HCl (Benadryl) 25 mg IVPUSH Q6H PRN PRN Reason: Itching Last Admin: 12/25/16 09:12 Dose: 25 mg Enoxaparin Sodium (Lovenox) 40 mg SUBCUT DAILY [facility] Last Admin: 12/25/16 08:57 Dose: 40 mg Folic Acid (Folic Acid) 1 mg PO BEDTIME [facility] Last Admin: 12/24/16 21:02 Dose: 1 mg Hydralazine HCl (Apresoline) 20 mg IVPUSH Q4H PRN PRN Reason: Hypertension Hydromorphone HCl (Dilaudid) 0.5 mg IVPUSH Q4H PRN PRN Reason: Pain Last Admin: 12/25/16 06:53 Dose: 0.5 mg Sodium Chloride (Normal Saline) 1,000 mls @ 100 mls/hr IV ASDIRECTED [facility] Last Admin: 12/25/16 06:54 Dose: 100 mls/hr Promethazine HCl 12.5 mg/ (Sodium Chloride) 50.5 mls @ 100 mls/hr IV Q6H PRN PRN Reason: Nausea/Vomiting Last Admin: 12/22/16 22:21 Dose: 100 mls/hr Ceftriaxone Sodium 1 gm/ (Sodium Chloride) 100 mls @ 200 mls/hr IV Q24H [facility] Lorazepam (Ativan) 2 mg IVPUSH Q4H PRN PRN Reason: Seizures Last Admin: 12/24/16 01:20 Dose: 2 mg Lorazepam (Ativan) 0 mg IVPUSH Q4H PRN; Protocol PRN Reason: Withdrawal Symptoms Last Admin: 12/25/16 06:52 Dose: 1 mg Magnesium Hydroxide (Milk Of Magnesia) 30 ml PO Q12H PRN PRN Reason: Constipation Magnesium Sulfate (Pharmacy To Dose - Magnesium Replacement) 1 dose .XX ASDIRECTED [facility] Metoprolol Tartrate (Lopressor) 5 mg IVPUSH Q4H PRN PRN Reason: Tachycardia Multivitamins (Thera) 1 each PO BEDTIME [facility] Last Admin: 12/24/16 21:04 Dose: 1 each Nicotine (Habitrol) 21 mg TRDERM DAILY [facility] Last Admin: 12/25/16 08:57 Dose: 21 mg Ondansetron HCl (Zofran) 4 mg IV Q4H PRN PRN Reason: Nausea/Vomiting Last Admin: 12/24/16 01:19 Dose: 4 mg Pantoprazole Sodium (Protonix Iv) 40 mg IV Q12HR [facility] Last Admin: 12/25/16 08:58 Dose: 40 mg Dextroamphetamine/Amphetamine [ Adderall Xr 10 Mg Capsule] 0 each PO DAILY [facility] Last Admin: 12/25/16 09:21 Dose: Not Given Polyethylene Glycol (Miralax) 17 gm PO DAILY PRN PRN Reason: Constipation Potassium Chloride (Pharmacy To Dose - Potassium Replacement) 1 dose .XX ASDIRECTED [facility] Quetiapine Fumarate (Seroquel) 25 mg PO DAILY [facility] Last Admin: 12/25/16 08:57 Dose: 25 mg Quetiapine Fumarate (Seroquel) 50 mg PO BEDTIME [facility] Last Admin: 12/24/16 21:03 Dose: 50 mg Senna/Docusate Sodium (Senna Plus) 1 tab PO BID PRN PRN Reason: Constipation Temazepam (Restoril) 15 mg PO BEDTIME PRN PRN Reason: Sleep Thiamine HCl (Vitamin B-1) 100 mg PO BEDTIME [facility] Last Admin: 12/24/16 21:04 Dose: 100 mg Topiramate (Topamax) 25 mg PO DAILY [facility] Last Admin: 12/25/16 08:57 Dose: 25 mg Discontinued Medications Chlordiazepoxide HCl (Librium) 25 mg PO QID [facility] Last Admin: 12/23/16 21:00 Dose: 25 mg Chlordiazepoxide HCl (Librium) 50 mg PO ONETIME ONE Stop: 12/22/16 21:57 Last Admin: 12/22/16 22:17 Dose: 50 mg Diphenhydramine HCl (Benadryl) 50 mg IVPUSH ONETIME ONE Stop: 12/22/16 21:58 Last Admin: 12/22/16 22:16 Dose: 50 mg Diphtheria/Tetanus/Acell Pertussis (Boostrix) 0.5 ml IM .ONCE ONE Stop: 12/23/16 09:36 Folic Acid (Folic Acid) 1 mg PO ONETIME ONE Stop: 12/22/16 21:52 Last Admin: 12/22/16 22:19 Dose: 1 mg Hydromorphone HCl (Dilaudid) 0.25 mg IVPUSH Q2H PRN PRN Reason: Pain (severe 7-10) Last Admin: 12/24/16 18:46 Dose: 0.25 mg Sodium Chloride (Normal Saline) 1,000 mls @ 1,000 mls/hr IV ONETIME ONE Stop: 12/22/16 19:48 Last Admin: 12/22/16 19:05 Dose: 1,000 mls/hr Potassium Chloride 10 meq/ (Premix) 100 mls @ 100 mls/hr IV Q1H [facility] Stop: 12/23/16 04:59 Last Admin: 12/23/16 05:11 Dose: 100 mls/hr Potassium Chloride (Kcl 10 Meq In Water 100 Ml) Confirm Administered Dose 100 mls @ as directed .ROUTE .STK-MED ONE Stop: 12/23/16 01:02 Last Admin: 12/23/16 01:09 Dose: Not Given Ceftriaxone Sodium 1 gm/ (Sodium Chloride) 100 mls @ 200 mls/hr IV ONETIME ONE Stop: 12/23/16 18:27 Last Admin: 12/23/16 18:22 Dose: 200 mls/hr Lorazepam (Ativan) 2 mg IVPUSH ONETIME ONE Stop: 12/22/16 22:25 Last Admin: 12/22/16 22:29 Dose: 2 mg Lorazepam (Ativan) 2 mg IVPUSH ONETIME ONE Stop: 12/23/16 08:25 Last Admin: 12/23/16 08:51 Dose: 2 mg Magnesium Oxide (Magnesium Oxide) 800 mg PO ONETIME ONE Stop: 12/24/16 08:46 Last Admin: 12/24/16 09:12 Dose: 800 mg Multivitamins (Thera) 1 each PO DAILY ONE Stop: 12/22/16 21:51 Last Admin: 12/22/16 22:35 Dose: 1 each Ondansetron HCl (Zofran) 4 mg IVPUSH ONETIME ONE Stop: 12/22/16 18:50 Last Admin: 12/22/16 19:06 Dose: 4 mg Ondansetron HCl (Zofran) Confirm Administered Dose 4 mg .ROUTE .STK-MED ONE Stop: 12/22/16 19:17 Last Admin: 12/22/16 19:58 Dose: Not Given Pneumococcal Polyvalent Vaccine (Pneumovax 23) 0.5 ml IM .ONCE ONE Stop: 12/23/16 12:46 Potassium Chloride (Klor-Con M20) 20 meq PO Q3H [facility] Stop: 12/23/16 02:01 Last Admin: 12/23/16 00:55 Dose: Not Given Quetiapine Fumarate (Seroquel) 25 mg PO BID [facility] Last Admin: 12/23/16 08:50 Dose: 25 mg Quetiapine Fumarate (Seroquel) 25 mg PO ONETIME ONE Stop: 12/22/16 21:57 Last Admin: 12/22/16 22:19 Dose: 25 mg Temazepam (Restoril) 30 mg PO BEDTIME PRN PRN Reason: Sleep Last Admin: 12/22/16 22:20 Dose: 30 mg Thiamine HCl (Vitamin B-1) 200 mg IV ONETIME ONE Stop: 12/22/16 21:52 Last Admin: 12/22/16 22:35 Dose: 200 mg Topiramate (Topamax) 25 mg PO BID [facility] Last Admin: 12/23/16 21:01 Dose: 25 mg Topiramate (Topamax) 25 mg PO BEDTIME ONE Stop: 12/23/16 21:51 Last Admin: 12/23/16 21:00 Dose: 25 mg Topiramate (Topamax) 25 mg PO DAILY [facility] - My Orders Last 24 Hours: My Active Orders 12/24/16 19:39 HYDROmorphone [Dilaudid] 0.5 mg IVPUSH Q4H PRN 12/24/16 21:00 Temazepam [Restoril] 15 mg PO BEDTIME PRN 12/25/16 09:48 CULTURE URINE [RM] Routine 12/25/16 11:00 cefTRIAXone [Rocephin] 1 gm Sodium Chloride 0.9% [Normal Saline] 100 ml IV Q24H 12/26/16 05:11 BASIC METABOLIC PANEL,BMP [CHEM] AM CBC WITH AUTO DIFF [HEME] AM MAGNESIUM [CHEM] AM 12/27/16 05:11 BASIC METABOLIC PANEL,BMP [CHEM] AM CBC WITH AUTO DIFF [HEME] AM MAGNESIUM [CHEM] AM 12/28/16 05:11 BASIC METABOLIC PANEL,BMP [CHEM] AM CBC WITH AUTO DIFF [HEME] AM MAGNESIUM [CHEM] AM - Plan Plan:: Assessment: ETOH Intoxication - MARLENA level is 0.32 - [facility] protocol - Ativan/Librium/Clonidine/Topamax/Seroquel - Hydralzine and IVP BB for HR/BP control - Ativan for Abortive Seizure and Withdrawal Symptoms - Restoril for Insomnia Poly-Substance Abuse - UDS: pos Amphetamine/Meth, Cocaine and Marijuana - Counseled on Substance Abuse - Awaiting SA/Psych consult - SA recommends: Demarcus as she is low acuity patient Tobacco Dependence - Nicotine patch - Counseled on Smoking Cessation Chronic ETOH Abuse - [facility] protocol as above Anxiety - Consulted Dr. Cruz - He made changes to her Seroquel dosing Resolved: S/p Leukocytosis - WBC 13K - Likely 2/2 Stress S/p Hypokalemia - 2/2 Inadequate intake - Will replete and monitor Plan: She is fairly stable; with mild-mod withdrawal symptoms Continue current treatment Routine AM Labs MVI, Folic, Acid and Thiamine CIWA protocol Ativan for Abortive Seizure and Withdrawal Symptoms Restoril for Insomnia PRN meds for Withdrawal Symptoms Aspiration/Seizure Precautions SW/CM d/c planning Code Status: 1
[2016-12-25] MEDS ORDERED: cefTRIAXone 1 GM in Sodium Chloride 0.9% 100 ML IV SCH (11:00)
--- NOTE | 2016-12-25 14:14 | PCM.DCSUM1 ---
Discharge Summary - Hospital Course Brief History: This is a 26 yo white female with past medical hx/o ADD, ADHD, Chronic Substance Abuse, Depression, and Questionable Multiple Personality Disorder who comes in for alcohol detoxification. Patient is known to me from previous admission for similar presentation. - Discharge Data Discharge Date: 12/25/16 Discharge Disposition: Against Medical Advice 07 Condition: Good - Discharge Diagnosis/Problem(s) (1) Left against medical advice SNOMED Code(s): 672383894 ICD Code: Z53.20 - PROC/TRTMT NOT CRD OUT BEC PT DECISION FOR UNSP REASONS Status: Acute (2) Alcohol withdrawal syndrome SNOMED Code(s): 404196384 ICD Code: F10.239 - ALCOHOL DEPENDENCE WITH WITHDRAWAL, UNSPECIFIED Status : Acute Qualifiers: Complication of substance-induced condition: uncomplicated Qualified Code(s ): F10.230 - Alcohol dependence with withdrawal, uncomplicated (3) Polysubstance abuse SNOMED Code(s): 748516636 ICD Code: F19.10 - OTHER PSYCHOACTIVE SUBSTANCE ABUSE, UNCOMPLICATED Status : Acute (4) Tobacco dependence SNOMED Code(s): 24490153 ICD Code: F17.200 - NICOTINE DEPENDENCE, UNSPECIFIED, UNCOMPLICATED Status : Acute (5) Anxiety SNOMED Code(s): 58080948 ICD Code: F41.9 - ANXIETY DISORDER, UNSPECIFIED Status: Acute - Patient Summary/Data Operative Procedure(s) Performed: None Complications: Unknown Consults: Consultations 12/22/16 21:47 Consult to Case Management [CONS] Routine Consult to Physician [CONS] Routine Consult to Nurses Supervisor [CONS] Routine Consult to Spiritual Care [CONS] Routine 12/22/16 22:23 Consult for Substance Abuse [CONS] Routine Hospital Course: Patient was primarily admitted for alcohol detoxification. She carries a hx/o alcohol and substance abuse. On admission, she was placed on support care and CIWA protocol. SA and Psych were consulted for further evaluation. Unfortunately , patient did not get to complete her detoxification as she left AMA. - Discharge Plan Home Medications: Home Meds Dextroamphetamine/Amphetamine [Adderall Xr 10 mg Capsule] 10 mg PO DAILY [History] Patient Handouts: Smoking Cessation, Tips for Success, [id number], Alcohol Use Disorder, Stimulant Use Disorder-Amphetamines, Substance Use Disorder, Alcohol Intoxication, [id number], Stimulant Use Disorder-Methamphetamines, Alcohol Withdrawal, [id number] - Discharge Summary/Plan Comment DC Time >30 min.: No Discharge Summary/Plan Comment: Patient left AMA - General Info Date of Service: 12/25/16 Admission Dx/Problem (Free Text: Admission Diagnosis/Problem Admission Diagnosis/Problem Alcohol intoxication Subjective Update: Follow Up Functional Status: Reports: pain controlled, tolerating diet, ambulating, urinating, new symptoms - Patient Data Vitals - Most Recent: Last Vital Signs Temp 36.5 C 12/25/16 08:11 Pulse 68 12/25/16 08:11 Resp 18 12/25/16 08:11 BP 106/73 12/25/16 08:11 Pulse Ox 99 12/25/16 08:11 Weight - Most Recent: 73.119 kg I&O - Last 24 hours: Intake & Output 12/24/16 12/25/16 12/25/16 22:59 06:59 14:59 Intake Total 1480 2418 Output Total 500 1350 Balance 980 1068 Lab Results - Last 24 hrs: Laboratory Results - last 24 hr 12/25/16 12/25/16 Range/Units 06:41 06:41 WBC 4.69 (3.98-10.04) K/mm3 RBC 4.22 (3.98-5.22) M/mm3 Hgb 12.6 (11.2-15.7) gm/L Hct 39.5 (34.1-44.9) % MCV 93.6 (79.4-94.8) fl MCH 29.9 (25.6-32.2) pg MCHC 31.9 L (32.2-35.5) g/dl RDW Std Deviation 43.3 (36.4-46.3) fL Plt Count 219 (182-369) K/mm3 MPV 8.8 L (9.4-12.3) fl Neut % (Auto) 31.4 L (34.0-71.1) % Lymph % (Auto) 53.5 H (19.3-51.7) % [place] % (Auto) 10.2 (4.7-12.5) % Eos % (Auto) 4.3 (0.7-5.8) Baso % (Auto) 0.4 (0.1-1.2) % Neut # 1.47 L (1.56-6.13) K/mm3 Lymph # 2.51 (1.18-3.74) K/mm3 [place] # 0.48 H (0.24-0.36) K/mm3 Eos # 0.20 (0.04-0.36) K/mm3 Baso # 0.02 (0.01-0.08) K/mm3 Manual Slide Review Normal smear Sodium 140 (136-145) mEq/L Potassium 3.7 (3.5-5.1) mEq/L Chloride 107 (98-107) mEq/L Carbon Dioxide 25 (21-32) mEq/L Anion Gap 11.7 (5-15) BUN 9 (7-18) mg/dL Creatinine 0.8 (0.55-1.02) mg/dL Est Cr Clr Drug Dosing 81.12 mL/min Estimated GFR (MDRD) > 60 (>60) mL/min BUN/Creatinine Ratio 11.3 L (14-18) Glucose 90 (74-106) mg/dL Calcium 8.4 L (8.5-10.1) mg/dL Magnesium 1.8 (1.8-2.4) mg/dl Med Orders - Current: Current Medications Discontinued Medications Acetaminophen (Tylenol) 650 mg PO Q4H PRN PRN Reason: Pain (Mild 1-3)/fever Acetaminophen/Hydrocodone Bitart ([place] 325-5 Mg) 1 tab PO Q4H PRN PRN Reason: Pain (moderate 4-6) Last Admin: 12/24/16 09:10 Dose: 1 tab Albuterol/Ipratropium (Duoneb 3.0-0.5 Mg/3 Ml) 3 ml NEB Q4H PRN PRN Reason: Shortness Of Breath/wheezing Bisacodyl (Dulcolax) 5 mg PO DAILY PRN PRN Reason: Constipation Chlordiazepoxide HCl (Librium) 25 mg PO QID [facility] Last Admin: 12/23/16 21:00 Dose: 25 mg Chlordiazepoxide HCl (Librium) 50 mg PO ONETIME ONE Stop: 12/22/16 21:57 Last Admin: 12/22/16 22:17 Dose: 50 mg Chlordiazepoxide HCl (Librium) 25 mg PO TID [facility] Last Admin: 12/25/16 08:57 Dose: 25 mg Clonidine HCl (Catapres) 0.1 mg PO Q8H [facility] Last Admin: 12/25/16 06:54 Dose: 0.1 mg Diphenhydramine HCl (Benadryl) 50 mg IVPUSH ONETIME ONE Stop: 12/22/16 21:58 Last Admin: 12/22/16 22:16 Dose: 50 mg Diphenhydramine HCl (Benadryl) 25 mg IVPUSH Q6H PRN PRN Reason: Itching Last Admin: 12/25/16 09:12 Dose: 25 mg Diphtheria/Tetanus/Acell Pertussis (Boostrix) 0.5 ml IM .ONCE ONE Stop: 12/23/16 09:36 Enoxaparin Sodium (Lovenox) 40 mg SUBCUT DAILY [facility] Last Admin: 12/25/16 08:57 Dose: 40 mg Folic Acid (Folic Acid) 1 mg PO ONETIME ONE Stop: 12/22/16 21:52 Last Admin: 12/22/16 22:19 Dose: 1 mg Folic Acid (Folic Acid) 1 mg PO BEDTIME [facility] Last Admin: 12/24/16 21:02 Dose: 1 mg Hydralazine HCl (Apresoline) 20 mg IVPUSH Q4H PRN PRN Reason: Hypertension Hydromorphone HCl (Dilaudid) 0.25 mg IVPUSH Q2H PRN PRN Reason: Pain (severe 7-10) Last Admin: 12/24/16 18:46 Dose: 0.25 mg Hydromorphone HCl (Dilaudid) 0.5 mg IVPUSH Q4H PRN PRN Reason: Pain Last Admin: 12/25/16 06:53 Dose: 0.5 mg Sodium Chloride (Normal Saline) 1,000 mls @ 1,000 mls/hr IV ONETIME ONE Stop: 12/22/16 19:48 Last Admin: 12/22/16 19:05 Dose: 1,000 mls/hr Sodium Chloride (Normal Saline) 1,000 mls @ 100 mls/hr IV ASDIRECTED [facility] Last Admin: 12/25/16 06:54 Dose: 100 mls/hr Promethazine HCl 12.5 mg/ (Sodium Chloride) 50.5 mls @ 100 mls/hr IV Q6H PRN PRN Reason: Nausea/Vomiting Last Admin: 12/22/16 22:21 Dose: 100 mls/hr Potassium Chloride 10 meq/ (Premix) 100 mls @ 100 mls/hr IV Q1H [facility] Stop: 12/23/16 04:59 Last Admin: 12/23/16 05:11 Dose: 100 mls/hr Potassium Chloride (Kcl 10 Meq In Water 100 Ml) Confirm Administered Dose 100 mls @ as directed .ROUTE .STK-MED ONE Stop: 12/23/16 01:02 Last Admin: 12/23/16 01:09 Dose: Not Given Ceftriaxone Sodium 1 gm/ (Sodium Chloride) 100 mls @ 200 mls/hr IV ONETIME ONE Stop: 12/23/16 18:27 Last Admin: 12/23/16 18:22 Dose: 200 mls/hr Ceftriaxone Sodium 1 gm/ (Sodium Chloride) 100 mls @ 200 mls/hr IV Q24H [facility] Lorazepam (Ativan) 2 mg IVPUSH Q4H PRN PRN Reason: Seizures Last Admin: 12/24/16 01:20 Dose: 2 mg Lorazepam (Ativan) 0 mg IVPUSH Q4H PRN; Protocol PRN Reason: Withdrawal Symptoms Last Admin: 12/25/16 06:52 Dose: 1 mg Lorazepam (Ativan) 2 mg IVPUSH ONETIME ONE Stop: 12/22/16 22:25 Last Admin: 12/22/16 22:29 Dose: 2 mg Lorazepam (Ativan) 2 mg IVPUSH ONETIME ONE Stop: 12/23/16 08:25 Last Admin: 12/23/16 08:51 Dose: 2 mg Magnesium Hydroxide (Milk Of Magnesia) 30 ml PO Q12H PRN PRN Reason: Constipation Magnesium Oxide (Magnesium Oxide) 800 mg PO ONETIME ONE Stop: 12/24/16 08:46 Last Admin: 12/24/16 09:12 Dose: 800 mg Magnesium Sulfate (Pharmacy To Dose - Magnesium Replacement) 1 dose .XX ASDIRECTED [facility] Metoprolol Tartrate (Lopressor) 5 mg IVPUSH Q4H PRN PRN Reason: Tachycardia Multivitamins (Thera) 1 each PO BEDTIME [place] Last Admin: 12/24/16 21:04 Dose: 1 each Multivitamins (Thera) 1 each PO DAILY ONE Stop: 12/22/16 21:51 Last Admin: 12/22/16 22:35 Dose: 1 each Nicotine (Habitrol) 21 mg TRDERM DAILY [facility] Last Admin: 12/25/16 08:57 Dose: 21 mg Ondansetron HCl (Zofran) 4 mg IVPUSH ONETIME ONE Stop: 12/22/16 18:50 Last Admin: 12/22/16 19:06 Dose: 4 mg Ondansetron HCl (Zofran) Confirm Administered Dose 4 mg .ROUTE .STK-MED ONE Stop: 12/22/16 19:17 Last Admin: 12/22/16 19:58 Dose: Not Given Ondansetron HCl (Zofran) 4 mg IV Q4H PRN PRN Reason: Nausea/Vomiting Last Admin: 12/24/16 01:19 Dose: 4 mg Pantoprazole Sodium (Protonix Iv) 40 mg IV Q12HR [facility] Last Admin: 12/25/16 08:58 Dose: 40 mg Dextroamphetamine/Amphetamine [ Adderall Xr 10 Mg Capsule] 0 each PO DAILY [facility] Last Admin: 12/25/16 09:21 Dose: Not Given Pneumococcal Polyvalent Vaccine (Pneumovax 23) 0.5 ml IM .ONCE ONE Stop: 12/23/16 12:46 Polyethylene Glycol (Miralax) 17 gm PO DAILY PRN PRN Reason: Constipation Potassium Chloride (Pharmacy To Dose - Potassium Replacement) 1 dose .XX ASDIRECTED [facility] Potassium Chloride (Klor-Con M20) 20 meq PO Q3H [facility] Stop: 12/23/16 02:01 Last Admin: 12/23/16 00:55 Dose: Not Given Quetiapine Fumarate (Seroquel) 25 mg PO BID [facility] Last Admin: 12/23/16 08:50 Dose: 25 mg Quetiapine Fumarate (Seroquel) 25 mg PO ONETIME ONE Stop: 12/22/16 21:57 Last Admin: 12/22/16 22:19 Dose: 25 mg Quetiapine Fumarate (Seroquel) 25 mg PO DAILY [facility] Last Admin: 12/25/16 08:57 Dose: 25 mg Quetiapine Fumarate (Seroquel) 50 mg PO BEDTIME [facility] Last Admin: 12/24/16 21:03 Dose: 50 mg Senna/Docusate Sodium (Senna Plus) 1 tab PO BID PRN PRN Reason: Constipation Temazepam (Restoril) 30 mg PO BEDTIME PRN PRN Reason: Sleep Last Admin: 12/22/16 22:20 Dose: 30 mg Temazepam (Restoril) 15 mg PO BEDTIME PRN PRN Reason: Sleep Thiamine HCl (Vitamin B-1) 100 mg PO BEDTIME [facility] Last Admin: 12/24/16 21:04 Dose: 100 mg Thiamine HCl (Vitamin B-1) 200 mg IV ONETIME ONE Stop: 12/22/16 21:52 Last Admin: 12/22/16 22:35 Dose: 200 mg Topiramate (Topamax) 25 mg PO BID [facility] Last Admin: 12/23/16 21:01 Dose: 25 mg Topiramate (Topamax) 25 mg PO BEDTIME ONE Stop: 12/23/16 21:51 Last Admin: 12/23/16 21:00 Dose: 25 mg Topiramate (Topamax) 25 mg PO DAILY [facility] Last Admin: 12/25/16 08:57 Dose: 25 mg Topiramate (Topamax) 25 mg PO DAILY [facility] *Q Meaningful Use (DIS) - VTE *Q VTE Criteria *Q: - Stroke *Q Stroke Criteria *Q: - AMI *Q AMI Criteria *Q:
--- NOTE | 2016-12-26 12:29 | CONS ---
CONSULTING PHYSICIAN: Asif Cruz MD DATE OF CONSULTATION: 12/23/2016 This is a 60-minute inpatient clinical event. IDENTIFICATION: The patient is a 26-year-old female, who was admitted to the MICU at [facility] in [place], [place], secondary to symptoms of excessive alcohol use and withdrawal. She is seen for psychiatric consultation and assessment. CHIEF COMPLAINT: "Alcohol detoxification." HISTORY OF PRESENT ILLNESS: The patient is a 26-year-old female, who was admitted to the inpatient MICU at [facility] in [place], [place] on 12/22/2016. She states that she has been drinking "1.75 L of vodka" a day and she states she has been using heavily for about the past year. She states that she has not been able to maintain any sustained sobriety over the past year and she has been complicating her excessive alcohol use with also meth, marijuana, and cocaine. Evidently per staff reports, she had used opioids in the past. The patient is denying that she has been using opioids lately. She states that with the withdrawal symptoms, she is experiencing visual and auditory hallucinations. She states she wants to get sober as she is tired of the lifestyle that she is currently leading. She states that she is depressed and anxious, but she knows that if she can get sober she feels that her mood and anxiety will be much better. She does not feel that she needs psychiatric medications at this point in time, excep in so far as to help her get sober. She is requesting chemical dependency treatment, if that option is available once she is helped through her withdrawal on the medical unit. MEDICATIONS: Medications at the time of presentation none prior to admission, but since admission the patient has been placed on: 1. Seroquel 25 mg b.i.d. 2. Topamax 25 mg b.i.d. 3. Clonidine 0.1 mg t.i.d. ALLERGIES: No known drug allergies. PAST MEDICAL HISTORY: The patient states she has bad lower back. REVIEW OF SYSTEMS: Aside from musculoskeletal, all other major organ systems are negative at this point in time for acute difficulties or complications. FAMILY PSYCHIATRIC AND CD HISTORY: The patient reports father, brother, and sisters also had issues with chemical dependency. PAST PSYCHIATRIC AND CD HISTORY: The patient denies any previous psychiatric hospitalizations or chemical dependency treatments. She reports 1 detox admission in 2016. She reports 1 DWI back in 2010. She states she has been drinking on a daily basis for the past year. Denies any previous suicide attempts, self-injurious behaviors, or eating disorder history. Her staff is reporting that the patient may have previous diagnosis of ADHD, clinical depression, and personality disorder. The patient states her primary mental health provider is Dr. Mathis. SOCIAL HISTORY: The patient was born in [place], [place], raised primarily in [place], and then [place]. The patient's parents were she states, but it sounds like they must have gotten , and she states her mother was with her stepfather. Stepfather was a drug dealer and her mother owned a [employer] down in [place]. The patient's highest level of education is a Bachelors of Science from [employer] in Business Management and a minor in psychology. 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 She states she has never been , not involved in any current relationships. She reports 3 abortions in the past at 19, 21, and 24 years of age, but she states she has been past these events, she is living in [place] by herself in an apartment, again, has been in [place] for the past 3 months. She denies any prior service or any current legal difficulties. She was raised [place]. She enjoys dancing, fixing up cars, and honey. MENTAL STATUS EXAM: The patient is a 26-year-old, soft-spoken white female in no apparent distress. Speech is of regular rate and rhythm. The patient is cognitively oriented x3. Psychomotor activity is within normal limits. There are no abnormal motor movements or tics observed. Gait and station are not observed. This patient is bed-bound, while the interview was conducted. Mood is depressed and anxious secondary to the adverse impact that her alcoholism and drug use is having on her quality of life. Affect is cooperative for the purposes of the inpatient psychiatric consult, but quite drowsy. There is no behavioral or stated evidence of acute suicidal or homicidal ideation. Thought content is significant for non-command type auditory hallucinations and visual hallucinations. Thought processes are slow, but organized overall. There is no acute manic symptoms or loose associations evident. Judgment and insight appear unimpaired at this point in time. Motivation for help appears good. VITAL SIGNS: Not available at the time of interview. IMPRESSION: [place] I: 1. Alcohol dependence, F10.20. 2. Psychosis, not otherwise specified, F29. 3. Anxiety disorder, not otherwise specified, F41.9. 4. Depression, not otherwise specified, F32.9. [place] II: No diagnosis at this time. [place] III: 1. Signs and symptoms of alcohol withdrawal. 2. Lower back issues. [place] IV: Severe. [place] V: 50. PLAN: 1. Sobriety. 2. Increase patient's Seroquel from 25 mg b.i.d. to 25 mg q.a.m., 50 mg at bedtime to help with psychotic symptoms, anxiety reduction, mood stability, and sleep initiation and maintenance. 3. Continue Topamax 25 mg b.i.d. for mood stability. Seizure prophylaxis and anxiety reduction. 4. Continue clonidine 0.1 mg t.i.d. as prescribed by Primary Medical Treatment Team. 5. Recommend folic acid and thiamine if not already prescribed. 6. Once the patient is medically stabilized, we recommend that the patient be transferred to preferably inpatient chemical dependency treatment to help with her primary alcohol dependence and chemical dependency issues. 7. AA while the patient is on the Inpatient Medical Unit. 8. Pastoral guidance. 9. We will continue to follow up with the patient on an as-needed basis while she remains on the Inpatient Medical Unit. 10.We will follow up with the patient sooner if there are any complications in the interim. 11.I recommend that the patient follow up with Outpatient Psychiatry once she is medically stabilized, completes treatment, and is discharged back to the community. 12.Crisis plan is in place. [facility] /[id number]
== END 2016-12-25 10:46 | disposition left against medical advice (07) | DRG 770 ==
LOC: JD.ED 18:17 → EEVIPCON 20:58 → JD.ICU 20:58 → JD.MS 12-24 03:38
PROVIDERS: ADMIT Internal Medicine; ATTEND Internal Medicine
DX: F10.129 Alcohol abuse with intoxication, unspecified (principal); F12.20 Cannabis dependence, uncomplicated; F15.20 Other stimulant dependence, uncomplicated; F11.20 Opioid dependence, uncomplicated; F17.200 Nicotine dependence, unspecified, uncomplicated; Y90.1 Blood alcohol level of 20-39 mg/100 ml; K21.9 Gastro-esophageal reflux disease without esophagitis
CPT/HCPCS: 36415; 80048; 80053; 80306; 80349; 81001; 81025; 83735; 84443; 85025; 93005; 96361; 96374; 99285; 99285-25; A9270-GY; C9113; G0480; J0696; J1170; J1200; J1650; J2060; J2405; J2550; J3411; J3480; J7030; J7040; J7050; P9612

== ENCOUNTER 2017-05-09 13:48 | Inpatient (IN) | payer BC ==
[2017-05-09] MEDS ORDERED: Ondansetron 4 MG/2 ML SDV IVPUSH ONE (14:37)
[2017-05-09] MEDS ORDERED: Sodium Chloride 0.9% 10 ML Syringe FLUSH PRN (14:37)
[2017-05-09] MEDS ORDERED: Sodium Chloride 0.9% 1,000 ML IV SCH (14:45)
--- NOTE | 2017-05-09 14:45 | EDM.PDOCBH ---
ED HPI GENERAL MEDICAL PROBLEM - General Chief Complaint: Drug or Alcohol Abuse Stated Complaint: ALCOHOL DETOX Time Seen by Provider: 05/09/17 14:21 Source of Information: Reports: Patient History Limitations: Reports: Intoxication - History of Present Illness INITIAL COMMENTS - FREE TEXT/NARRATIVE: The patient presents for alcohol detox. She last drank 45 minutes ago. She has been drinking liquor daily since she was last seen back in December. She is looking to get help stopping. She has nausea and vomiting. She has pain in both flanks. She has no chest pain or shortness of breath. Onset: Gradual Duration: Week(s): Severity: Moderate Improves with: Reports: None Worsens with: Reports: None Associated Symptoms: Reports: Nausea/Vomiting. Denies: Cough, Fever/Chills, Headaches, Shortness of Breath Head Pain Score (Numeric/FACES): 8 - Related Data Allergies Allergy/AdvReac Type Severity Reaction Status Date / Time No Known Allergies Allergy Verified 05/09/17 14:20 Home Meds: Home Meds . [No Known Home Meds] 05/09/17 [History] Past Medical History - Past Health History Medical/Surgical History: Denies Medical/Surgical History Cardiovascular History: Reports: Heart Murmur Respiratory History: Reports: Bronchitis, Recurrent Gastrointestinal History: Reports: GERD Other Gastrointestinal History: Pt states she has had kidney pain in right flank since she started drinking back in October. ADOBE LAYER History: Reports: Polycystic Ovaries Musculoskeletal History: Reports: Arthritis, Back Pain, Chronic Neurological History: Reports: Seizure Other Neuro History: 2 min. Seizure witnessed by boyfriend, Anthony last night while detoxing, according to pt. 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 Pt states she drinks 1.5L Vodka daily to prevent detoxing and get high. Pt denies drug use. Immunologic History: Reports: None Oncologic (Cancer) History: Reports: Ovarian - Infectious Disease History Infectious Disease History: Reports: Chicken Pox - Past Surgical History Female Surgical History: Reports: Salpingo-Oophorectomy Neurological Surgical History: Reports: None Social & Family History - Family History Family Medical History: Unobtainable - Tobacco Use Smoking Status *Q: Current Every Day Smoker Years of Tobacco use: 6 Packs/Tins Daily: 1 Used Tobacco, but Quit: No Second Hand Smoke Exposure: No - Alcohol Use Days Per Week of Alcohol Use: 7 Number of Drinks Per Day: 34 Total Drinks Per Week: 238 Date of Last Drink: 05/09/17 Time of Last Drink: 13:30 - Recreational Drug Use Recreational Drug Use: Yes Drug Use in Last 12 Months: Yes Recreational Drug Type: Reports: Methamphetamine Recreational Drug Use Frequency: Daily Recreational Drug Last Use: 45 days ago - Living Situation & Occupation Living situation: Reports: Single, Alone Occupation: Unemployed ED ROS GENERAL - Review of Systems Review Of Systems: See Below Constitutional: Reports: No Symptoms HEENT: Reports: No Symptoms Respiratory: Reports: No Symptoms Cardiovascular: Reports: No Symptoms Endocrine: Reports: No Symptoms GI/Abdominal: Reports: Nausea, Vomiting : Reports: No Symptoms Musculoskeletal: Reports: No Symptoms Skin: Reports: No Symptoms Neurological: Reports: No Symptoms ED EXAM, BEHAVIORAL HEALTH - Physical Exam Exam: See Below Exam Limited By: No Limitations General Appearance: Alert, No Apparent Distress Ears: Normal External Exam Nose: Normal Inspection Head: Atraumatic, Normocephalic Neck: Normal Inspection Respiratory/Chest: No Respiratory Distress, Lungs Clear, Normal Breath Sounds Cardiovascular: Regular Rate, Rhythm, No Edema, No Murmur GI/Abdominal: Soft, Non-Tender, No Organomegaly, No Mass Back Exam: Normal Inspection Extremities: Normal Inspection COURSE, BEHAVIORAL HEALTH COMP - Course Vital Signs: Last Vital Signs Temp 98.5 F 05/09/17 14:21 Pulse 96 05/09/17 14:21 Resp 18 05/09/17 14:21 BP 118/74 05/09/17 14:21 Pulse Ox 99 05/09/17 14:21 Orders, Labs, Meds: Active Orders 24 hr Category Date Time Status Cardiac Monitoring [RC] . DIRECTED Care 05/09/17 14:37 Active Peripheral IV Care [RC] . DIRECTED Care 05/09/17 14:38 Active Sodium Chloride 0.9% [Normal Saline] 1,000 ml Med 05/09/17 14:45 Active IV .BOLUS Sodium Chloride 0.9% [Saline Flush] Med 05/09/17 14:37 Active 10 ml FLUSH ASDIRECTED PRN ED Antiemetic Medication Reflex [OM.PC] Stat Oth 05/09/17 14:37 Ordered Peripheral IV Insertion Adult [OM.PC] Stat [facility] 05/09/17 14:37 Ordered Medication Orders Sodium Chloride (Normal Saline) 1,000 mls @ 1,000 mls/hr IV .BOLUS MALDONADO Last Admin: 05/09/17 14:45 Dose: 1,000 mls/hr Sodium Chloride (Saline Flush) 10 ml FLUSH ASDIRECTED PRN PRN Reason: Keep Vein Open Last Admin: 05/09/17 14:46 Dose: 10 ml Laboratory Tests 05/09/17 05/09/17 05/09/17 Range/Units 14:38 14:38 14:38 WBC 7.84 (3.98-10.04) K/mm3 RBC 4.61 (3.98-5.22) M/mm3 Hgb 14.4 (11.2-15.7) gm/L Hct 43.1 (34.1-44.9) % MCV 93.5 (79.4-94.8) fl MCH 31.2 (25.6-32.2) pg MCHC 33.4 (32.2-35.5) g/dl RDW Std Deviation 42.1 (36.4-46.3) fL Plt Count 320 (182-369) K/mm3 MPV 8.5 L (9.4-12.3) fl Neut % (Auto) 42.3 (34.0-71.1) % Lymph % (Auto) 42.1 (19.3-51.7) % Clark % (Auto) 13.0 H (4.7-12.5) % Eos % (Auto) 1.8 (0.7-5.8) Baso % (Auto) 0.5 (0.1-1.2) % Neut # (Auto) 3.32 (1.56-6.13) K/mm3 Lymph # (Auto) 3.30 (1.18-3.74) K/mm3 Clark # (Auto) 1.02 H (0.24-0.36) K/mm3 Eos # (Auto) 0.14 (0.04-0.36) K/mm3 Baso # (Auto) 0.04 (0.01-0.08) K/mm3 Sodium 140 (136-145) mEq/L Potassium 3.6 (3.5-5.1) mEq/L Chloride 104 (98-107) mEq/L Carbon Dioxide 23 (21-32) mEq/L Anion Gap 16.6 H (5-15) BUN 15 (7-18) mg/dL Creatinine 0.8 (0.55-1.02) mg/dL Est Cr Clr Drug Dosing TNP Estimated GFR (MDRD) > 60 (>60) mL/min BUN/Creatinine Ratio 18.8 H (14-18) Glucose 82 (74-106) mg/dL Calcium 9.4 (8.5-10.1) mg/dL Total Bilirubin 0.5 (0.2-1.0) mg/dL AST 101 H (15-37) U/L ALT 143 H (14-59) U/L Alkaline Phosphatase 89 (46-116) U/L Total Protein 7.9 (6.4-8.2) g/dl Albumin 4.0 (3.4-5.0) g/dl Globulin 3.9 gm/dL Albumin/Globulin Ratio 1.0 (1-2) HCG, Qual Negative (NEGATIVE) Urine Opiates Screen (NEGATIVE) Ur Buprenorphine Scrn (NEGATIVE) Ur Oxycodone Screen (NEGATIVE) Urine Methadone Screen (NEGATIVE) Ur Propoxyphene Screen (NEGATIVE) Ur Barbiturates Screen (NEGATIVE) Ur Tricyclics Screen (NEGATIVE) Ur Phencyclidine Scrn (NEGATIVE) Ur Amphetamine Screen (NEGATIVE) U Methamphetamines Scrn (NEGATIVE) U Benzodiazepines Scrn (NEGATIVE) U Cocaine Metab Screen (NEGATIVE) U Marijuana (THC) Screen (NEGATIVE) Ethyl Alcohol 0.18 (0.00) gm% 05/09/17 Range/Units 14:38 WBC (3.98-10.04) K/mm3 RBC (3.98-5.22) M/mm3 Hgb (11.2-15.7) gm/L Hct (34.1-44.9) % MCV (79.4-94.8) fl MCH (25.6-32.2) pg MCHC (32.2-35.5) g/dl RDW Std Deviation (36.4-46.3) fL Plt Count (182-369) K/mm3 MPV (9.4-12.3) fl Neut % (Auto) (34.0-71.1) % Lymph % (Auto) (19.3-51.7) % Clark % (Auto) (4.7-12.5) % Eos % (Auto) (0.7-5.8) Baso % (Auto) (0.1-1.2) % Neut # (Auto) (1.56-6.13) K/mm3 Lymph # (Auto) (1.18-3.74) K/mm3 Clark # (Auto) (0.24-0.36) K/mm3 Eos # (Auto) (0.04-0.36) K/mm3 Baso # (Auto) (0.01-0.08) K/mm3 Sodium (136-145) mEq/L Potassium (3.5-5.1) mEq/L Chloride (98-107) mEq/L Carbon Dioxide (21-32) mEq/L Anion Gap (5-15) BUN (7-18) mg/dL Creatinine (0.55-1.02) mg/dL Est Cr Clr Drug Dosing Estimated GFR (MDRD) (>60) mL/min BUN/Creatinine Ratio (14-18) Glucose (74-106) mg/dL Calcium (8.5-10.1) mg/dL Total Bilirubin (0.2-1.0) mg/dL AST (15-37) U/L ALT (14-59) U/L Alkaline Phosphatase (46-116) U/L Total Protein (6.4-8.2) g/dl Albumin (3.4-5.0) g/dl Globulin gm/dL Albumin/Globulin Ratio (1-2) HCG, Qual (NEGATIVE) Urine Opiates Screen Negative (NEGATIVE) Ur Buprenorphine Scrn Negative (NEGATIVE) Ur Oxycodone Screen Negative (NEGATIVE) Urine Methadone Screen Negative (NEGATIVE) Ur Propoxyphene Screen Negative (NEGATIVE) Ur Barbiturates Screen Negative (NEGATIVE) Ur Tricyclics Screen Negative (NEGATIVE) Ur Phencyclidine Scrn Negative (NEGATIVE) Ur Amphetamine Screen Presumptive positive H (NEGATIVE) U Methamphetamines Scrn Presumptive positive H (NEGATIVE) U Benzodiazepines Scrn Negative (NEGATIVE) U Cocaine Metab Screen Negative (NEGATIVE) U Marijuana (THC) Screen Presumptive positive H (NEGATIVE) Ethyl Alcohol (0.00) gm% Medications Generic Name Dose Route Start Last Admin Trade Name Freq PRN Reason Stop Dose Admin Sodium Chloride 1,000 mls @ 1,000 mls/hr 05/09/17 14:45 05/09/17 14:45 Normal Saline IV 1,000 mls/hr .BOLUS MALDONADO Administration Sodium Chloride 10 ml 05/09/17 14:37 05/09/17 14:46 Saline Flush FLUSH 10 ml ASDIRECTED PRN Administration Keep Vein Open Discontinued Medications Generic Name Dose Route Start Last Admin Trade Name Ailyn PRN Reason Stop Dose Admin Lorazepam 0.5 mg 05/09/17 14:54 05/09/17 15:16 Ativan IVPUSH 05/09/17 14:55 0.5 mg ONETIME ONE Administration Ondansetron HCl 4 mg 05/09/17 14:37 05/09/17 14:45 Zofran IVPUSH 05/09/17 14:38 4 mg ONETIME ONE Administration Re-Assessment/Re-Exam: I ordered an IV NS 1L bolus, zofran 4mg IV, ativan 0.5mg IV, labs and UDS. Her CBC is negative. Her anion gap is elevated at 16.6. Her AST is elevated at 101. Her ALT is elevated at 103. Her HCG is negative. Her UDS was positive for meth, amphetamines and marijuans. Her blood alcohol is 0.18. I talked to Dr Segovia and he agreed to the admission. Departure - Departure Time of Disposition: 16:05 Disposition: Admitted As Inpatient 67 Clinical Impression: Drug abuse, Alcohol abuse Alcohol withdrawal syndrome Qualifiers: Complication of substance-induced condition: uncomplicated Qualified Code(s): F10.230 - Alcohol dependence with withdrawal, uncomplicated - Discharge Information - My Orders Last 24 Hours: My Active Orders 05/09/17 14:37 Cardiac Monitoring [RC] . DIRECTED Sodium Chloride 0.9% [Saline Flush] 10 ml FLUSH ASDIRECTED PRN ED Antiemetic Medication Reflex [OM.PC] Stat Peripheral IV Insertion Adult [OM.PC] Stat 05/09/17 14:38 Peripheral IV Care [RC] . DIRECTED 05/09/17 14:45 Sodium Chloride 0.9% [Normal Saline] 1,000 ml IV .BOLUS - Assessment/Plan Last 24 Hours: My Active Orders 05/09/17 14:37 Cardiac Monitoring [RC] . DIRECTED Sodium Chloride 0.9% [Saline Flush] 10 ml FLUSH ASDIRECTED PRN ED Antiemetic Medication Reflex [OM.PC] Stat Peripheral IV Insertion Adult [OM.PC] Stat 05/09/17 14:38 Peripheral IV Care [RC] . DIRECTED 05/09/17 14:45 Sodium Chloride 0.9% [Normal Saline] 1,000 ml IV .BOLUS
[2017-05-09] MEDS ORDERED: LORazepam 2 MG/ML MDV IVPUSH ONE (14:54)
[2017-05-09] MEDS ORDERED: Bisacodyl 5 MG Tab PO PRN (16:21)
[2017-05-09] MEDS ORDERED: Docusate Sodium 100 MG Cap PO PRN (16:21)
[2017-05-09] MEDS ORDERED: Acetaminophen 325 MG Tab PO PRN (16:21)
[2017-05-09] MEDS ORDERED: Albuterol/Ipratropium 3.0-0.5 MG/3 ML Neb Soln NEB PRN (16:21)
[2017-05-09] MEDS ORDERED: Promethazine 12.5 MG in Sodium Chloride 0.9% 50 ML IV PRN (16:21)
[2017-05-09] MEDS ORDERED: Polyethylene Glycol 3350 Powder 17 GM Packet PO PRN (16:21)
[2017-05-09] MEDS ORDERED: Ondansetron 4 MG/2 ML SDV IV PRN (16:21)
--- NOTE | 2017-05-09 16:21 | PCM.HP ---
H&P History of Present Illness - General Date of Service: 05/09/17 Admit Problem/Dx: ETOH Intoxication Source of Information: Patient, Old Records, Provider, RN Notes Reviewed, Significant Other History Limitations: Reports: Intoxication - History of Present Illness Initial Comments - Free Text/Narative: This is a 27 year old white female with past medical history of ADD, ADHD, chronic substance abuse, depression, and multiple personality disorder who presents to the emergency department for alcohol detoxification. Patient is known to me from previous admissions. She carries a history of severe alcoholism. Her last ETOH intake was about couple of hours ago. Patient was last admitted here in December and she was sent for chemical dependency rehabilitation. Unfortunately, she left on her own w/o completing the treatment. When she came back to [place], patient immediately went back to drinking alcohol. She is however looking to get some help again. Patient complains of nausea, vomiting with mild tremors. She also reports having 4-5 seizures a day. She is however not on any seizure medications or prophylactic/maintenance medications to control her alcoholism. Her initial workup in emergency department shows a fairly unremarkable CBC. Her chemistry is noted for an anion gap of 16.6, AST of 101 and ALT of 143. screening is negative. Her UDS is positive for amphetamines, methamphetamines, and THC. Her MARLENA level is 0.18. Patient is being admitted for alcohol withdrawal. Head Pain Score (Numeric/FACES): 8 - Related Data Allergies/Adverse Reactions: Allergies Allergy/AdvReac Type Severity Reaction Status Date / Time No Known Allergies Allergy Verified 05/09/17 14:20 Home Medications: Home Meds . [No Known Home Meds] 05/09/17 [History] Past Medical History - Past Health History Medical/Surgical History: Denies Medical/Surgical History Cardiovascular History: Reports: Heart Murmur Respiratory History: Reports: Bronchitis, Recurrent Gastrointestinal History: Reports: GERD Other Gastrointestinal History: Pt states she has had kidney pain in right flank since she started drinking back in October. [employer] History: Reports: Polycystic Ovaries Musculoskeletal History: Reports: Arthritis, Back Pain, Chronic Neurological History: Reports: Seizure Other Neuro History: 2 min. Seizure witnessed by boyfriend, Anthony last night while detoxing, according to pt. 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 Pt states she drinks 1.5L Vodka daily to prevent detoxing and get high. Pt denies drug use. Immunologic History: Reports: None Oncologic (Cancer) History: Reports: Ovarian - Infectious Disease History Infectious Disease History: Reports: Chicken Pox - Past Surgical History Female Surgical History: Reports: Salpingo-Oophorectomy Neurological Surgical History: Reports: None Social & Family History - Family History Family Medical History: Unobtainable - Tobacco Use Smoking Status *Q: Current Every Day Smoker Years of Tobacco use: 6 Packs/Tins Daily: 1 Used Tobacco, but Quit: No Second Hand Smoke Exposure: No - Alcohol Use Days Per Week of Alcohol Use: 7 Number of Drinks Per Day: 34 Total Drinks Per Week: 238 Date of Last Drink: 05/09/17 Time of Last Drink: 13:30 - Recreational Drug Use Recreational Drug Use: Yes Drug Use in Last 12 Months: Yes Recreational Drug Type: Reports: Methamphetamine Recreational Drug Use Frequency: Daily Recreational Drug Last Use: 45 days ago - Living Situation & Occupation Living situation: Reports: Single, Alone Occupation: Unemployed H&P Review of Systems - Review of Systems: Review Of Systems: See Below General: Denies: Fever, Chills, Malaise, Weakness, Fatigue, Decreased Appetite HEENT: Reports: No Symptoms Pulmonary: Denies: Shortness of Breath Cardiovascular: Denies: Palpitations Gastrointestinal: Reports: Nausea, Vomiting. Denies: Abdominal Pain, Difficulty Swallowing Genitourinary: Reports: No Symptoms Musculoskeletal: Reports: Back Pain Skin: Reports: Bruising. Denies: Cyanosis, Jaundice, Erythema Psychiatric: Reports: Anxiety. Denies: Confusion, Depression, Hallucinations, Suicidal Ideation Neurological: Reports: Tremors. Denies: Pre-Existing Deficit, Difficulty Walking, Weakness, Gait Disturbance Hematologic/Lymphatic: Reports: No Symptoms Immunologic: Reports: No Symptoms Exam - Exam Exam: See Below - Vital Signs Vital Signs: Last Vital Signs Temp 36.9 C 05/09/17 14:21 Pulse 96 05/09/17 14:21 Resp 18 05/09/17 14:21 BP 118/74 05/09/17 14:21 Pulse Ox 99 05/09/17 14:21 Weight: 73.119 kg - Exam General: Alert, Mild Distress HEENT: Conjunctiva Clear, EACs Clear, Hearing Intact, Mucosa Moist & [place], Nares Patent, Normal Nasal Septum, Posterior Pharynx Clear, Pupils Equal, Pupils Reactive, Other (lateral nystagmus). No: EOMI Neck: Supple, Trachea Midline, +2 Carotid Pulse wo Bruit, Full Range of Motion Lungs: Clear to Auscultation, Normal Respiratory Effort Cardiovascular: Regular Rate, Regular Rhythm GI/Abdominal Exam: Normal Bowel Sounds, Soft, Non-Tender, No Organomegaly, No Distention, No Abnormal Bruit, No Mass, Pelvis Stable (Female) Exam: Deferred Rectal (Female) Exam: Deferred Back Exam: Normal Inspection, Decreased Range of Motion, Muscle Spasm, Paraspinal Tenderness, Vertebral Tenderness Extremities: Normal Inspection, Normal Range of Motion, Non-Tender, No Pedal Edema, Normal Capillary Refill Peripheral Pulses: 3+: Posterior Tibial (L), Posterior Tibial (R), Dorsalis Pedis (L), Dorsalis Pedis (R) Skin: Warm, Dry, Intact Neuro Extensive - Mental Status: Oriented x3, Normal Cognition, Memory Intact Neuro Extensive - Motor, Sensory, Reflexes: CN II-XII Intact (very limited due to lower back pain), Abnormal Gait Psychiatric: Alert, Normal Affect, Anxious, Withdrawal Symptoms. No: Suicidal Ideation, Homicidal Ideation, Hallucinations - Patient Data Result Diagrams: 05/10/17 06:05 05/10/17 06:05 *Q Meaningful Use (ADM) - VTE *Q VTE Criteria *Q: - Stroke *Q Stroke Criteria *Q: - AMI *Q AMI Criteria *Q: Problem List Initiated/Reviewed/Updated: Yes Orders Last 24hrs: Medication Orders Sodium Chloride (Normal Saline) 1,000 mls @ 1,000 mls/hr IV .BOLUS MALDONADO Last Admin: 05/09/17 14:45 Dose: 1,000 mls/hr Sodium Chloride (Saline Flush) 10 ml FLUSH ASDIRECTED PRN PRN Reason: Keep Vein Open Last Admin: 05/09/17 14:46 Dose: 10 ml Assessment/Plan Comment:: Assessment: Acute: ETOH Withdrawal Symptoms - MARLENA level 0.0 - CIWA protocol: CIWA score on presentation was markedly elevated - Ativan/Librium/Clonidine/Topamax - Hydralzine and IVP BB for HR/BP control - Ativan for Abortive Seizure and Withdrawal Symptoms Chronic ETOH Abuse - Drinks 1.5 vodka a day - Been to chemical rehab in the past - Most recent rehab, she left on her own - SA consult Multiple Seizure - 4-5 a day per patient - Likely related to Severe Alcoholism - Bruises on right lower extremity - Topamax 25 mg po BID for prophylaxis - Seizure Precautions - PRN Ativan for abortive seizures Transaminitis - Mild - Likely from ETOH - Monitor Poly-Substance Abuse - UDS: Amphetamines/Methamphetamines and THC - Counseled on Substance Abuse - SA consult Tobacco Dependence - Smokes 1ppd - Nicotine patch Daily - Counseled on Smoking Cessation Back/Flank Pain - Right sided - Sensitive to touch - PRN pain meds Chronic: ADD/ADHD Substance Abuse Depression ? MPD Plan: Admit to ICU MVI, Folic Acid and Thiamine CIWA protocol Mg Level this am Ativan for Abortive Seizure and Withdrawal Symptoms PRN meds for Withdrawal Symptoms Aspiration/Seizure Precautions SW/CM d/c planning SA/Psych consult Code Status: 1
[2017-05-09] MEDS ORDERED: cloNIDine 0.1 MG Tab PO PRN (16:25)
[2017-05-09] MEDS ORDERED: Multivitamins,Therapeutic Tab PO ONE (16:25)
[2017-05-09] MEDS ORDERED: Folic Acid 50 MG/10 ML MDV SUBCUT ONE (16:25)
[2017-05-09] MEDS ORDERED: LORazepam 2 MG/ML MDV IVPUSH PRN ×2 (16:29)
[2017-05-09] MEDS ORDERED: Metoprolol Tartrate 5 MG/5 ML SDV IVPUSH PRN (16:29)
[2017-05-09] MEDS ORDERED: hydrALAZINE 20 MG/ML SDV IVPUSH PRN (16:29)
[2017-05-09] MEDS ORDERED: HYDROmorphone 0.5 MG/0.5 ML Syringe ONE (16:37)
[2017-05-09] MEDS: HYDROmorphone 0.5 MG/0.5 ML Syringe IVPUSH PRN (17:32)
[2017-05-09] MEDS ORDERED: Sodium Chloride 0.9% 50 ML ONE (18:33)
[2017-05-09] MEDS: Sodium Chloride 0.9% 1,000 ML IV SCH (18:49)
[2017-05-09] MEDS ORDERED: QUEtiapine 25 MG Tab PO STA (19:16)
[2017-05-09] MEDS ORDERED: Topiramate 25 MG Tab PO SCH ×4 (19:37→21:00)
[2017-05-09] MEDS: busPIRone 5 MG Tab PO SCH (21:09)
[2017-05-09] MEDS: QUEtiapine 25 MG Tab PO SCH (21:09)
[2017-05-09] MEDS: Acetaminophen/HYDROcodone 325-5 MG Tab PO PRN (21:09)
[2017-05-09] MEDS: diphenhydrAMINE 50 MG/ML SDV IVPUSH PRN (21:09)
[2017-05-09] MEDS: chlordiazePOXIDE 25 MG Cap PO PRN (21:10)
[2017-05-10] MEDS: diphenhydrAMINE 50 MG/ML SDV IVPUSH PRN ×2 (02:03→22:50)
[2017-05-10] MEDS: Sodium Chloride 0.9% 1,000 ML IV SCH ×2 (02:03→09:49)
[2017-05-10] MEDS: HYDROmorphone 0.5 MG/0.5 ML Syringe IVPUSH PRN ×3 (02:04→14:37)
[2017-05-10] MEDS ORDERED: Topiramate 25 MG Tab PO SCH ×4 (07:00→21:00)
--- NOTE | 2017-05-10 07:48 | PCM.PN ---
- General Info Date of Service: 05/10/17 Admission Dx/Problem (Free Text): ETOH Intoxication Subjective Update: Follow Up Functional Status: Reports: Pain Controlled, Tolerating Diet, Urinating. Denies : New Symptoms - Review of Systems General: Denies: Fever, Weakness, Fatigue, Malaise, Chills HEENT: Reports: No Symptoms Pulmonary: Denies: Shortness of Breath Cardiovascular: Denies: Chest Pain, Palpitations, Dyspnea on Exertion Gastrointestinal: Denies: Abdominal Pain, Nausea, Vomiting Genitourinary: Reports: Flank Pain Musculoskeletal: Reports: Back Pain Skin: Denies: Cyanosis, Pruritis, Rash Neurological: Denies: Confusion, Pre-Existing Deficit, Difficulty Walking, Weakness, Gait Disturbance Psychiatric: Denies: Depression, Anxiety, Agitation, Hallucinations, Suicidal Ideation, Homicidal Ideation Systems Review Comment:: No overnight issues. She slept pretty good. She is not suicidal. She complaints of flank/back pain. She has no new complaints. - Patient Data Vitals - Most Recent: Last Vital Signs Temp 36.6 C 05/10/17 04:00 Pulse 97 05/09/17 16:22 Resp 18 05/10/17 04:00 BP 94/70 05/10/17 04:00 Pulse Ox 94 L 05/10/17 04:00 Weight - Most Recent: 63.594 kg I&O - Last 24 Hours: Intake & Output 05/09/17 05/10/17 05/10/17 22:59 06:59 14:59 Intake Total 2345 Output Total 500 Balance 1845 Lab Results Last 24 Hours: Laboratory Results - last 24 hr 05/10/17 05/10/17 Range/Units 06:05 06:05 WBC 5.98 (3.98-10.04) K/mm3 RBC 3.98 (3.98-5.22) M/mm3 Hgb 12.4 (11.2-15.7) gm/L Hct 38.4 (34.1-44.9) % MCV 96.5 H (79.4-94.8) fl MCH 31.2 (25.6-32.2) pg MCHC 32.3 (32.2-35.5) g/dl RDW Std Deviation 43.1 (36.4-46.3) fL Plt Count 233 (182-369) K/mm3 MPV 8.7 L (9.4-12.3) fl Neut % (Auto) 36.2 (34.0-71.1) % Lymph % (Auto) 49.2 (19.3-51.7) % [place] % (Auto) 10.4 (4.7-12.5) % Eos % (Auto) 3.3 (0.7-5.8) Baso % (Auto) 0.7 (0.1-1.2) % Neut # (Auto) 2.17 (1.56-6.13) K/mm3 Lymph # (Auto) 2.94 (1.18-3.74) K/mm3 [place] # (Auto) 0.62 H (0.24-0.36) K/mm3 Eos # (Auto) 0.20 (0.04-0.36) K/mm3 Baso # (Auto) 0.04 (0.01-0.08) K/mm3 Sodium 139 (136-145) mEq/L Potassium 3.9 (3.5-5.1) mEq/L Chloride 108 H (98-107) mEq/L Carbon Dioxide 23 (21-32) mEq/L Anion Gap 11.9 (5-15) BUN 15 (7-18) mg/dL Creatinine 0.8 (0.55-1.02) mg/dL Est Cr Clr Drug Dosing 80.41 mL/min Estimated GFR (MDRD) > 60 (>60) mL/min BUN/Creatinine Ratio 18.8 H (14-18) Glucose 91 (74-106) mg/dL Calcium 8.1 L (8.5-10.1) mg/dL Magnesium 1.7 L (1.8-2.4) mg/dl Med Orders - Current: Current Medications Acetaminophen (Tylenol) 650 mg PO Q4H PRN PRN Reason: Pain (Mild 1-3)/fever Hydrocodone Bitart/Acetaminophen ([place] 325-5 Mg) 1 tab PO Q4H PRN PRN Reason: Pain (moderate 4-6) Last Admin: 05/09/17 21:09 Dose: 1 tab Albuterol/Ipratropium (Duoneb 3.0-0.5 Mg/3 Ml) 3 ml NEB Q4H PRN PRN Reason: Shortness Of Breath/wheezing Bisacodyl (Dulcolax) 5 mg PO DAILY PRN PRN Reason: Constipation Buspirone HCl (Buspar) 7.5 mg PO BID [facility] Last Admin: 05/09/17 21:09 Dose: 7.5 mg Chlordiazepoxide HCl (Librium) 25 mg PO Q8H PRN PRN Reason: Withdrawal Symptoms Last Admin: 05/09/17 21:10 Dose: 25 mg Clonidine HCl (Catapres) 0.1 mg PO Q4H PRN PRN Reason: Agitation Diphenhydramine HCl (Benadryl) 50 mg IVPUSH BEDTIME PRN PRN Reason: Allergies Last Admin: 05/10/17 02:03 Dose: 50 mg Docusate Sodium (Colace) 100 mg PO BID PRN PRN Reason: Constipation Famotidine (Pepcid) 20 mg PO Q12H [facility] Folic Acid (Folic Acid) 1 mg PO DAILY [facility] Stop: 05/12/17 09:01 Hydralazine HCl (Apresoline) 20 mg IVPUSH Q4H PRN PRN Reason: Hypertension Hydromorphone HCl (Dilaudid) 0.25 mg IVPUSH Q2H PRN PRN Reason: Pain (severe 7-10) Last Admin: 05/10/17 02:04 Dose: 0.25 mg Promethazine HCl 12.5 mg/ (Sodium Chloride) 50.5 mls @ 100 mls/hr IV Q6H PRN PRN Reason: Nausea/Vomiting Sodium Chloride (Normal Saline) 1,000 mls @ 125 mls/hr IV ASDIRECTED [facility] Last Admin: 05/10/17 02:03 Dose: 125 mls/hr Lorazepam (Ativan) 2 mg IVPUSH Q4H PRN PRN Reason: Seizures Last Admin: 05/09/17 17:38 Dose: 2 mg Lorazepam (Ativan) 0 mg IVPUSH ASDIRECTED PRN; Protocol PRN Reason: Withdrawal Symptoms Magnesium Oxide (Magnesium Oxide) 400 mg PO ONETIME ONE Stop: 05/10/17 08:01 Magnesium Sulfate (Pharmacy To Dose - Magnesium Replacement) 1 dose .XX ASDIRECTED [facility] Metoprolol Tartrate (Lopressor) 5 mg IVPUSH Q4H PRN PRN Reason: Tachycardia Ondansetron HCl (Zofran) 4 mg IV Q6H PRN PRN Reason: Nausea/Vomiting Polyethylene Glycol (Miralax) 17 gm PO DAILY PRN PRN Reason: Constipation Potassium Chloride (Pharmacy To Dose - Potassium Replacement) 1 dose .XX ASDIRECTED [facility] Quetiapine Fumarate (Seroquel) 50 mg PO BEDTIME [facility] Last Admin: 05/09/17 21:09 Dose: 50 mg Senna/Docusate Sodium (Senna Plus) 1 tab PO BID PRN PRN Reason: Constipation Sodium Chloride (Saline Flush) 10 ml FLUSH ASDIRECTED PRN PRN Reason: Keep Vein Open Last Admin: 05/09/17 14:46 Dose: 10 ml Thiamine HCl (Vitamin B-1) 100 mg PO DAILY [facility] Topiramate (Topamax) 25 mg PO BEDTIME [facility] Last Admin: 05/10/17 07:47 Dose: Not Given Topiramate (Topamax) 25 mg PO BIDAC [facility] Discontinued Medications Folic Acid (Folic Acid) 1 mg SUBCUT ONETIME ONE Stop: 05/09/17 16:26 Last Admin: 05/09/17 17:41 Dose: 1 mg Hydromorphone HCl (Dilaudid) Confirm Administered Dose 0.5 mg .ROUTE .STK-MED ONE Stop: 05/09/17 16:38 Last Admin: 05/09/17 17:41 Dose: Not Given Sodium Chloride (Normal Saline) 1,000 mls @ 1,000 mls/hr IV .BOLUS [facility] Last Admin: 05/09/17 14:45 Dose: 1,000 mls/hr Thiamine HCl 200 mg/ Sodium (Chloride) 52 mls @ 100 mls/hr IV ONETIME ONE Stop: 05/09/17 16:55 Last Admin: 05/09/17 18:42 Dose: 100 mls/hr Sodium Chloride (Normal Saline) Confirm Administered Dose 50 mls @ as directed .ROUTE .STK-MED ONE Stop: 05/09/17 18:34 Last Admin: 05/09/17 18:44 Dose: 100 ml Lorazepam (Ativan) 0.5 mg IVPUSH ONETIME ONE Stop: 05/09/17 14:55 Last Admin: 05/09/17 15:16 Dose: 0.5 mg Lorazepam (Ativan) 0 mg IVPUSH Q4H PRN; Protocol PRN Reason: Withdrawal Symptoms Last Admin: 05/09/17 18:59 Dose: 2 mg Multivitamins (Thera) 1 each PO ONETIME ONE Stop: 05/09/17 16:26 Last Admin: 05/09/17 17:41 Dose: 1 each Ondansetron HCl (Zofran) 4 mg IVPUSH ONETIME ONE Stop: 05/09/17 14:38 Last Admin: 05/09/17 14:45 Dose: 4 mg Quetiapine Fumarate (Seroquel) 25 mg PO BID [facility] Quetiapine Fumarate (Seroquel) 25 mg PO DAILY [facility] Stop: 05/09/17 19:17 Last Admin: 05/09/17 20:12 Dose: Not Given Topiramate (Topamax) 25 mg PO BID [facility] Topiramate (Topamax) 25 mg PO BID [facility] Topiramate (Topamax) 25 mg PO BID [facility] Last Admin: 05/09/17 21:10 Dose: 25 mg - Exam General: Alert, Oriented, Cooperative, No Acute Distress HEENT: Pupils Equal, Pupils Reactive, EOMI, Mucous Membr. Moist/[place] Neck: Supple, Trachea Midline, No JVD, No Thyromegaly Lungs: Clear to Auscultation, Normal Respiratory Effort, Decreased Breath Sounds Cardiovascular: Regular Rate, Regular Rhythm GI/Abdominal Exam: Normal Bowel Sounds, Soft, Non-Tender, No Organomegaly, No Distention, No Abnormal Bruit, No Mass (Female) Exam: Deferred Back Exam: Normal Inspection, Decreased Range of Motion, Muscle Spasm, Vertebral Tenderness, Other (Hypersensitivity to the touch; no obvious trauma) Extremities: Normal Inspection, Normal Range of Motion, Non-Tender, No Pedal Edema, Normal Capillary Refill Skin: Warm, Dry, Intact, Ecchymosis Neurological: No New Focal Deficit Psy/Mental Status: Alert, Normal Affect, Normal Mood - Problem List Review Problem List Initiated/Reviewed/Updated: Yes - My Orders Last 24 Hours: My Active Orders 05/09/17 16:21 Height and Weight [RC] 04 Notify Provider Consults [RC] ASDIRECTED Up With Assistance [RC] ASDIRECTED Up ad Ros [RC] ASDIRECTED Consult to Physician [CONS] Routine Acetaminophen [Tylenol] 650 mg PO Q4H PRN Acetaminophen/HYDROcodone [[place] 325-5 MG] 1 tab PO Q4H PRN Albuterol/Ipratropium [DuoNeb 3.0-0.5 MG/3 ML] 3 ml NEB Q4H PRN Bisacodyl [Dulcolax] 5 mg PO DAILY PRN Docusate Sodium [Colace] 100 mg PO BID PRN Docusate Sodium/Sennosides [Senna Plus] 1 tab PO BID PRN HYDROmorphone [Dilaudid] 0.25 mg IVPUSH Q2H PRN Ondansetron [Zofran] 4 mg IV Q6H PRN Polyethylene Glycol 3350 [MiraLAX] 17 gm PO DAILY PRN Promethazine [Phenergan] 12.5 mg Sodium Chloride 0.9% [Normal Saline] 50 ml IV Q6H Resuscitation Status Routine 05/09/17 16:22 CIWAA Assessment [RC] Q1HR Intake and Output [RC] 04,16 Notify Provider [RC] PRN Oxygen Therapy [RC] PRN Vital Signs [RC] Q4HR Sequential Compression Device [OM.PC] Per Unit Routine 05/09/17 16:25 Antiembolic Devices [RC] 10,22 RT Aerosol Therapy [RC] ASDIRECTED Consult to Case Management [CONS] Routine Consult to Ice Skating Coach [CONS] Routine Consult to Spiritual Care [CONS] Routine OT Evaluation and Treatment [CONS] Routine PT Evaluation and Treatment [CONS] Routine chlordiazePOXIDE [Librium] 25 mg PO Q8H PRN cloNIDine [Catapres] 0.1 mg PO Q4H PRN Seizure Precautions [OM.PC] Routine 05/09/17 16:29 LORazepam [Ativan] 2 mg IVPUSH Q4H PRN Metoprolol Tartrate [Lopressor] 5 mg IVPUSH Q4H PRN hydrALAZINE [Apresoline] 20 mg IVPUSH Q4H PRN 05/09/17 16:30 Magnesium Rep Pharmacy to Dose [Pharmacy to Dose - Magnesium Replacement] 1 dose .XX ASDIRECTED Potassium Rep Pharmacy to Dose [Pharmacy to Dose - Potassium Replacement] 1 dose .XX ASDIRECTED Sodium Chloride 0.9% [Normal Saline] 1,000 ml IV ASDIRECTED 05/09/17 19:53 LORazepam [Ativan] See Protocol IVPUSH ASDIRECTED PRN 05/09/17 20:40 diphenhydrAMINE [Benadryl] 50 mg IVPUSH BEDTIME PRN 05/09/17 Dinner Regular Diet [DIET] 05/10/17 08:00 Magnesium Oxide 400 mg PO ONETIME ONE 05/10/17 09:00 Famotidine [Pepcid] 20 mg PO Q12H Folic Acid 1 mg PO DAILY Thiamine [Vitamin B-1] 100 mg PO DAILY 05/11/17 05:11 BASIC METABOLIC PANEL,BMP [CHEM] AM MAGNESIUM [CHEM] AM - Plan Plan:: Assessment: Acute: Chronic ETOH Abuse - Drinks 1.5 vodka a day - Been to chemical rehab in the past - Most recent rehab, she left on her own - SA consult cancelled - Psych recommends outpatient treatment once medically cleared Poly-Substance Abuse - UDS: Amphetamines/Methamphetamines and THC - Counseled on Substance Abuse - SA consult, cancelled Tobacco Dependence - Smokes 1ppd - Nicotine patch Daily - Counseled on Smoking Cessation Back Pain - 7/10 Pain Scale - Right sided, likely from a recent fall (given her admission of having seizures at home) - Sensitive to touch - UA negative - PRN pain meds + Lidocaine Patch Daily Hypomagnesemia - 2/2 Inadequate Intake - Mg is 1.7 - Pharmacy to replete and monitor Resolved: S/p ETOH Withdrawal Symptoms - MARLENA level 0.0 - CIWA protocol: CIWA score is now 4-6 - Ativan/Librium/Clonidine/Topamax - Hydralzine and IVP BB for HR/BP control - Ativan for Abortive Seizure and Withdrawal Symptoms S/p Multiple Seizure - 4-5 a day per patient - Likely related to Severe Alcoholism - Bruises on right lower extremity - Topamax 25 mg po BID for prophylaxis - Seizure Precautions - PRN Ativan for abortive seizures S/p Transaminitis - Likely from ETOH - Monitor Chronic: ADD/ADHD Substance Abuse Depression ? Multiple Personality Disorder Plan: She is clinically stable Transfer to Med-Surg w/o Tele Continue current treatment SW/CM d/c planning SA consult cancelled Code Status: 1 Possible d/c in am
[2017-05-10] MEDS ORDERED: Magnesium Oxide 400 MG Tab PO ONE (08:00)
[2017-05-10] MEDS ORDERED: diphenhydrAMINE 50 MG/ML SDV IVPUSH PRN (08:36)
[2017-05-10] MEDS: busPIRone 5 MG Tab PO SCH ×2 (08:41→22:24)
[2017-05-10] MEDS: Thiamine 100 MG Tab PO SCH (08:41)
[2017-05-10] MEDS: Acetaminophen/HYDROcodone 325-5 MG Tab PO PRN (08:41)
[2017-05-10] MEDS: Folic Acid 1 MG Tab PO SCH (08:42)
[2017-05-10] MEDS: Famotidine 20 MG Tab PO SCH ×2 (08:42→22:26)
[2017-05-10] MEDS ORDERED: QUEtiapine 25 MG Tab PO SCH (09:00)
[2017-05-10] MEDS: Lidocaine 5% 700 MG Patch TOP SCH (09:08)
[2017-05-10] MEDS: Nicotine 21 MG/24 Hr Patch TRDERM SCH (09:46)
[2017-05-10] MEDS ORDERED: diphenhydrAMINE 25 MG Cap PO PRN (11:26)
[2017-05-10] MEDS: chlordiazePOXIDE 25 MG Cap PO PRN (14:37)
[2017-05-10] MEDS: QUEtiapine 25 MG Tab PO SCH (22:25)
[2017-05-10] MEDS: LORazepam 2 MG/ML MDV IVPUSH PRN (23:04)
[2017-05-11] MEDS: Sodium Chloride 0.9% 1,000 ML IV SCH (02:43)
[2017-05-11] MEDS: HYDROmorphone 0.5 MG/0.5 ML Syringe IVPUSH PRN (05:51)
[2017-05-11] MEDS: LORazepam 2 MG/ML MDV IVPUSH PRN (06:06)
[2017-05-11] MEDS ORDERED: Sodium Chloride 0.9% 1,000 ML IV ONE (06:11)
--- NOTE | 2017-05-11 07:40 | PCM.DCSUM1 ---
Discharge Summary - Hospital Course Free Text/Narrative:: This is a 27 year old white female with past medical history of ADD, ADHD, chronic substance abuse, depression, and multiple personality disorder who presents to the emergency department for alcohol detoxification. Patient is known to me from previous admissions. She carries a history of severe alcoholism. Her last ETOH intake was about couple of hours ago. Patient was last admitted here in December and she was sent for chemical dependency rehabilitation. Unfortunately, she left on her own w/o completing the treatment. When she came back to [place], patient immediately went back to drinking alcohol. She is however looking to get some help again. Patient complains of nausea, vomiting with mild tremors. She also reports having 4-5 seizures a day. She is however not on any seizure medications or prophylactic/maintenance medications to control her alcoholism. Her initial workup in emergency department shows a fairly unremarkable CBC. Her chemistry is noted for an anion gap of 16.6, AST of 101 and ALT of 143. screening is negative. Her UDS is positive for amphetamines, methamphetamines, and THC. Her MARLENA level is 0.18. Patient is being admitted for alcohol withdrawal. She was admitted to ICU, maintained on CIWAA protocol with ativan PRN, ativan for seizure PRN, librium, topamax, seroquel all for withdrawl symptoms. Dr. Cruz, Psychiatrist was consulted who discontinued prior order for substance abuse consult. She started on buspar BID for anxiety. She is now medically stable from alcohol detoxification standpoint and will be discharged home today with follow up with Psychiatry as outpatient, follow up with Substance Abuse Counselor as outpatient and follow up with PCP within one week of discharge. - Discharge Data Discharge Date: 05/11/17 (admit date05/10/17) Discharge Disposition: Home, Self-Care 01 Condition: Good - Patient Summary/Data Operative Procedure(s) Performed: None Complications: None Consults: None Labs Pending at D/C: None Recommended Follow-up Testing/Procedures: Follow up with Substance Abuse Counseling- see agencies below for help -[facility]--delma [phone] -[facility] Follow up with Psychiatry- Dr. Cruz as outpatient for mental health issues Follow up with Primary Care Provider within one week of discharge Planned Operative Procedure(s) after DC: None Hospital Course: As above - Patient Instructions Diet: Usual Diet as Tolerated, No Alcoholic Beverages (NO ALCOHOL OR DRUGS ) Activity: As Tolerated Driving: Do Not Drive Showering/Bathing: May Shower Notify Provider of: Fever, Nausea and/or Vomiting - Discharge Plan Prescriptions/Med Rec: QUEtiapine [SEROquel] 50 mg PO BEDTIME #15 tablet busPIRone [Buspar] 7.5 mg PO BID #30 tablet Home Medications: Home Meds Famotidine [Pepcid] 20 mg PO Q12H tablet 05/11/17 [Rx] Folic Acid 1 mg PO DAILY tablet 05/11/17 [Rx] Nicotine [Habitrol] 21 mg TRDERM DAILY patch 05/11/17 [Rx] QUEtiapine [SEROquel] 50 mg PO BEDTIME #15 tablet 05/11/17 [Rx] Thiamine [Vitamin B-1] 100 mg PO DAILY tablet 05/11/17 [Rx] busPIRone [Buspar] 7.5 mg PO BID #30 tablet 05/11/17 [Rx] Patient Handouts: Smoking Cessation, Tips for Success, [id number], Alcohol Use Disorder, Stimulant Use Disorder-Amphetamines, Alcohol Intoxication, Easy-to -Read, Finding Treatment for Addiction, Stimulant Use Disorder-Methamphetamines , Alcohol Withdrawal, [id number] Referrals: Asif Cruz MD [Physician] - 06/05/17 3:30 pm (please call [phone] call from 0730 7:30until 1630 to schedule this) Sharifa Rosenthal, [Primary Care Provider] - - Discharge Summary/Plan Comment DC Time >30 min.: Yes (40 min) - General Info Date of Service: 05/11/17 Admission Dx/Problem (Free Text: ETOH Intoxication Patient appears medically stable today for discharge; however did receive IV dilaudid and ativan at 0530am today. Has been manipulative with CIWAA question scale with nursing- please see nursing notes. Will watch her for the morning early afternoon and plan for discharge later this afternoon. Functional Status: Reports: Tolerating Diet, Ambulating, Urinating. Denies: New Symptoms - Review of Systems General: Reports: No Symptoms HEENT: Reports: No Symptoms Pulmonary: Reports: No Symptoms Cardiovascular: Reports: No Symptoms Gastrointestinal: Reports: No Symptoms Genitourinary: Reports: No Symptoms Musculoskeletal: Reports: No Symptoms Skin: Reports: No Symptoms Neurological: Reports: No Symptoms Psychiatric: Reports: No Symptoms, Anxiety - Patient Data Vitals - Most Recent: Last Vital Signs Temp 97.5 F 05/11/17 06:16 Pulse 63 05/11/17 05:42 Resp 16 05/10/17 23:55 BP 84/54 L 05/11/17 06:16 Pulse Ox 100 05/11/17 05:42 Weight - Most Recent: 145 lb 1.6 oz I&O - Last 24 hours: Intake & Output 05/10/17 05/11/17 05/11/17 22:59 06:59 14:59 Intake Total 1696 1895 Output Total 1300 Balance 396 1895 Lab Results - Last 24 hrs: Laboratory Results - last 24 hr 05/11/17 Range/Units 06:34 Sodium 142 (136-145) mEq/L Potassium 3.8 (3.5-5.1) mEq/L Chloride 111 H (98-107) mEq/L Carbon Dioxide 25 (21-32) mEq/L Anion Gap 9.8 (5-15) BUN 13 (7-18) mg/dL Creatinine 0.9 (0.55-1.02) mg/dL Est Cr Clr Drug Dosing 71.48 mL/min Estimated GFR (MDRD) > 60 (>60) mL/min BUN/Creatinine Ratio 14.4 (14-18) Glucose 91 (74-106) mg/dL Calcium 8.0 L (8.5-10.1) mg/dL Magnesium 1.7 L (1.8-2.4) mg/dl Med Orders - Current: Current Medications Acetaminophen (Tylenol) 650 mg PO Q4H PRN PRN Reason: Pain (Mild 1-3)/fever Hydrocodone Bitart/Acetaminophen ([place] 325-5 Mg) 1 tab PO Q4H PRN PRN Reason: Pain (moderate 4-6) Last Admin: 05/10/17 08:41 Dose: 1 tab Albuterol/Ipratropium (Duoneb 3.0-0.5 Mg/3 Ml) 3 ml NEB Q4H PRN PRN Reason: Shortness Of Breath/wheezing Bisacodyl (Dulcolax) 5 mg PO DAILY PRN PRN Reason: Constipation Buspirone HCl (Buspar) 7.5 mg PO BID [facility] Last Admin: 05/10/17 22:24 Dose: 7.5 mg Chlordiazepoxide HCl (Librium) 10 mg PO BID [facility] Clonidine HCl (Catapres) 0.1 mg PO Q4H PRN PRN Reason: Agitation Diphenhydramine HCl (Benadryl) 50 mg IVPUSH BEDTIME PRN PRN Reason: Allergies Last Admin: 05/10/17 22:50 Dose: 50 mg Diphenhydramine HCl (Benadryl) 25 mg PO Q4H PRN PRN Reason: Allergies Last Admin: 05/10/17 14:41 Dose: 25 mg Docusate Sodium (Colace) 100 mg PO BID PRN PRN Reason: Constipation Famotidine (Pepcid) 20 mg PO Q12H [facility] Last Admin: 05/10/17 22:26 Dose: 20 mg Folic Acid (Folic Acid) 1 mg PO DAILY [facility] Stop: 05/12/17 09:01 Last Admin: 05/10/17 08:42 Dose: 1 mg Hydralazine HCl (Apresoline) 20 mg IVPUSH Q4H PRN PRN Reason: Hypertension Sodium Chloride (Normal Saline) 1,000 mls @ 125 mls/hr IV ASDIRECTED [facility] Last Admin: 05/11/17 02:43 Dose: 125 mls/hr Magnesium Sulfate 2 gm/ Premix 50 mls @ 25 mls/hr IV ONETIME ONE Stop: 05/11/17 09:59 Lidocaine (Lidoderm 5%) 700 mg TOP Q24H [facility] Last Admin: 05/10/17 09:08 Dose: 700 mg Lorazepam (Ativan) 2 mg IVPUSH Q4H PRN PRN Reason: Seizures Last Admin: 05/09/17 17:38 Dose: 2 mg Magnesium Sulfate (Pharmacy To Dose - Magnesium Replacement) 1 dose .XX ASDIRECTED [facility] Metoprolol Tartrate (Lopressor) 5 mg IVPUSH Q4H PRN PRN Reason: Tachycardia Miscellaneous Information (Remove Patch) 0 ea TRDERM Q24H [facility] Last Admin: 05/11/17 02:53 Dose: Not Given Miscellaneous Information (Remove Patch) 0 ea TRDERM DAILY [facility] Nicotine (Habitrol) 21 mg TRDERM DAILY [facility] Last Admin: 05/10/17 09:46 Dose: 21 mg Ondansetron HCl (Zofran) 4 mg IV Q6H PRN PRN Reason: Nausea/Vomiting Polyethylene Glycol (Miralax) 17 gm PO DAILY PRN PRN Reason: Constipation Potassium Chloride (Pharmacy To Dose - Potassium Replacement) 1 dose .XX ASDIRECTED [facility] Quetiapine Fumarate (Seroquel) 50 mg PO BEDTIME [facility] Last Admin: 05/10/17 22:25 Dose: 50 mg Senna/Docusate Sodium (Senna Plus) 1 tab PO BID PRN PRN Reason: Constipation Sodium Chloride (Saline Flush) 10 ml FLUSH ASDIRECTED PRN PRN Reason: Keep Vein Open Last Admin: 05/09/17 14:46 Dose: 10 ml Thiamine HCl (Vitamin B-1) 100 mg PO DAILY [facility] Last Admin: 05/10/17 08:41 Dose: 100 mg Topiramate (Topamax) 25 mg PO BEDTIME [facility] Last Admin: 05/10/17 22:26 Dose: 25 mg Discontinued Medications Chlordiazepoxide HCl (Librium) 25 mg PO Q8H PRN PRN Reason: Withdrawal Symptoms Last Admin: 05/10/17 14:37 Dose: 25 mg Diphenhydramine HCl (Benadryl) 25 mg IVPUSH Q4H PRN PRN Reason: Allergies Last Admin: 05/10/17 09:10 Dose: 25 mg Folic Acid (Folic Acid) 1 mg SUBCUT ONETIME ONE Stop: 05/09/17 16:26 Last Admin: 05/09/17 17:41 Dose: 1 mg Hydromorphone HCl (Dilaudid) 0.25 mg IVPUSH Q2H PRN PRN Reason: Pain (severe 7-10) Last Admin: 05/11/17 05:51 Dose: 0.25 mg Hydromorphone HCl (Dilaudid) Confirm Administered Dose 0.5 mg .ROUTE .STK-MED ONE Stop: 05/09/17 16:38 Last Admin: 05/09/17 17:41 Dose: Not Given Sodium Chloride (Normal Saline) 1,000 mls @ 1,000 mls/hr IV .BOLUS [facility] Last Admin: 05/09/17 14:45 Dose: 1,000 mls/hr Promethazine HCl 12.5 mg/ (Sodium Chloride) 50.5 mls @ 100 mls/hr IV Q6H PRN PRN Reason: Nausea/Vomiting Thiamine HCl 200 mg/ Sodium (Chloride) 52 mls @ 100 mls/hr IV ONETIME ONE Stop: 05/09/17 16:55 Last Admin: 05/09/17 18:42 Dose: 100 mls/hr Sodium Chloride (Normal Saline) Confirm Administered Dose 50 mls @ as directed .ROUTE .STK-MED ONE Stop: 05/09/17 18:34 Last Admin: 05/09/17 18:44 Dose: 100 ml Sodium Chloride (Normal Saline) 1,000 mls @ 999 mls/hr IV ONETIME ONE Stop: 05/11/17 07:11 Last Admin: 05/11/17 06:15 Dose: 999 mls/hr Lorazepam (Ativan) 0.5 mg IVPUSH ONETIME ONE Stop: 05/09/17 14:55 Last Admin: 05/09/17 15:16 Dose: 0.5 mg Lorazepam (Ativan) 0 mg IVPUSH Q4H PRN; Protocol PRN Reason: Withdrawal Symptoms Last Admin: 05/09/17 18:59 Dose: 2 mg Lorazepam (Ativan) 0 mg IVPUSH ASDIRECTED PRN; Protocol PRN Reason: Withdrawal Symptoms Last Admin: 05/11/17 06:06 Dose: 2 mg Magnesium Oxide (Magnesium Oxide) 400 mg PO ONETIME ONE Stop: 05/10/17 08:01 Last Admin: 05/10/17 08:41 Dose: 400 mg Multivitamins (Thera) 1 each PO ONETIME ONE Stop: 05/09/17 16:26 Last Admin: 05/09/17 17:41 Dose: 1 each Ondansetron HCl (Zofran) 4 mg IVPUSH ONETIME ONE Stop: 05/09/17 14:38 Last Admin: 05/09/17 14:45 Dose: 4 mg Quetiapine Fumarate (Seroquel) 25 mg PO BID [facility] Quetiapine Fumarate (Seroquel) 25 mg PO DAILY [facility] Stop: 05/09/17 19:17 Last Admin: 05/09/17 20:12 Dose: Not Given Topiramate (Topamax) 25 mg PO BID [facility] Topiramate (Topamax) 25 mg PO BID [facility] Topiramate (Topamax) 25 mg PO BID [facility] Last Admin: 05/09/17 21:10 Dose: 25 mg Topiramate (Topamax) 25 mg PO BEDTIME [facility] Last Admin: 05/10/17 07:47 Dose: Not Given Topiramate (Topamax) 25 mg PO BIDAC [facility] Last Admin: 05/10/17 08:42 Dose: 25 mg Topiramate (Topamax) 25 mg PO BID [facility] - Exam Quality Assessment: Reports: DVT Prophylaxis General: Reports: Alert, Cooperative, No Acute Distress HEENT: Reports: Pupils Equal, Mucous Membr. Moist/[place] Neck: Reports: Supple Lungs: Reports: Normal Respiratory Effort Back Exam: Reports: Normal Inspection Extremities: Normal Inspection Neurological: Reports: No New Focal Deficit Psy/Mental Status: Reports: Alert, Normal Mood, Anxious *Q Meaningful Use (DIS) - VTE *Q VTE Criteria *Q: - Stroke *Q Stroke Criteria *Q: - AMI *Q AMI Criteria *Q:
[2017-05-11] MEDS ORDERED: Magnesium Sulfate/Water 2 GM in Premix Bag 1 BAG IV ONE (08:00)
[2017-05-11] MEDS ORDERED: Magnesium Oxide 400 MG Tab PO ONE (08:45)
[2017-05-11] MEDS ORDERED: chlordiazePOXIDE 10 MG Cap PO SCH (09:00)
[2017-05-11] MEDS: Thiamine 100 MG Tab PO SCH (09:09)
[2017-05-11] MEDS: busPIRone 5 MG Tab PO SCH (09:10)
[2017-05-11] MEDS: Famotidine 20 MG Tab PO SCH (09:10)
[2017-05-11] MEDS: Nicotine 21 MG/24 Hr Patch TRDERM SCH (09:11)
[2017-05-11] MEDS: Folic Acid 1 MG Tab PO SCH (09:11)
[2017-05-11] MEDS: Lidocaine 5% 700 MG Patch TOP SCH (09:12)
[2017-05-11 12:50] VITALS: BP 141/65
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
== END 2017-05-11 12:25 | disposition home or self-care (01) | DRG 775 ==
LOC: JD.ED 13:48 → SUPCPDRO 13:48 → UNDOADMIN 16:11 → JD.ICU 16:11 → JD.MS 05-10 14:34
PROVIDERS: ADMIT Internal Medicine; ATTEND Internal Medicine
PROC: HZ2ZZZZ Detoxification Services for Substance Abuse Treatment (ICD-10-PCS; principal; 2017-05-10)
DX: F10.230 Alcohol dependence with withdrawal, uncomplicated (principal); F15.10 Other stimulant abuse, uncomplicated; K21.9 Gastro-esophageal reflux disease without esophagitis; M19.90 Unspecified osteoarthritis, unspecified site; G89.29 Other chronic pain; M54.9 Dorsalgia, unspecified; F32.9 Major depressive disorder, single episode, unspecified; F17.210 Nicotine dependence, cigarettes, uncomplicated; Y90.1 Blood alcohol level of 20-39 mg/100 ml; R56.9 Unspecified convulsions; R74.0 Nonspecific elevation of levels of transaminase and lactic acid dehydrogenase [LDH]; F90.9 Attention-deficit hyperactivity disorder, unspecified type; F44.81 Dissociative identity disorder; E83.42 Hypomagnesemia
CPT/HCPCS: 36415; 80048; 80053; 80306; 81001; 83735; 84703; 85025; 96361; 96374; 96375; 99284; 99285-25; A9270-GY; G0480; J1170; J1200; J2060; J2405; J3411; J7030; J7040; J7050

== ENCOUNTER 2017-11-08 05:36 | Emergency (ER) | payer BC ==
[2017-11-08 05:44] VITALS: BP 120/78
--- NOTE | 2017-11-08 06:11 | EDM.PDOC ---
<Talat Houston - Last Filed: 11/08/17 08:45> ED HPI GENERAL MEDICAL PROBLEM - General Chief Complaint: Upper Extremity Injury/Pain Stated Complaint: INJURED RIGHT HAND Time Seen by Provider: 11/08/17 05:46 - Related Data Allergies Allergy/AdvReac Type Severity Reaction Status Date / Time No Known Allergies Allergy Verified 05/09/17 14:20 Home Meds: Home Meds Famotidine [Pepcid] 20 mg PO Q12H tablet 05/11/17 [Rx] Folic Acid 1 mg PO DAILY tablet 05/11/17 [Rx] Nicotine [Habitrol] 21 mg TRDERM DAILY patch 05/11/17 [Rx] QUEtiapine [SEROquel] 50 mg PO BEDTIME #15 tablet 05/11/17 [Rx] Thiamine [Vitamin B-1] 100 mg PO DAILY tablet 05/11/17 [Rx] busPIRone [Buspar] 7.5 mg PO BID #30 tablet 05/11/17 [Rx] Course - Vital Signs Last Recorded V/S: Last Vital Signs Temp 97.4 F 11/08/17 05:42 Pulse 130 H 11/08/17 05:42 Resp 18 11/08/17 05:42 BP 120/78 11/08/17 05:42 Pulse Ox 97 11/08/17 05:42 - Orders/Labs/Meds Labs: Laboratory Tests 11/08/17 11/08/17 Range/Units 06:48 06:48 WBC 8.67 (3.98-10.04) K/mm3 RBC 4.49 (3.98-5.22) M/mm3 Hgb 13.6 (11.2-15.7) gm/L Hct 41.0 (34.1-44.9) % MCV 91.3 (79.4-94.8) fl MCH 30.3 (25.6-32.2) pg MCHC 33.2 (32.2-35.5) g/dl RDW Std Deviation 43.6 (36.4-46.3) fL Plt Count 292 (182-369) K/mm3 MPV 8.3 L (9.4-12.3) fl Neut % (Auto) 70.6 (34.0-71.1) % Lymph % (Auto) 21.5 (19.3-51.7) % Elbert % (Auto) 7.2 (4.7-12.5) % Eos % (Auto) 0.2 L (0.7-5.8) Baso % (Auto) 0.3 (0.1-1.2) % Neut # (Auto) 6.12 (1.56-6.13) K/mm3 Lymph # (Auto) 1.86 (1.18-3.74) K/mm3 Elbert # (Auto) 0.62 H (0.24-0.36) K/mm3 Eos # (Auto) 0.02 L (0.04-0.36) K/mm3 Baso # (Auto) 0.03 (0.01-0.08) K/mm3 Sodium 138 (136-145) mEq/L Potassium 3.5 (3.5-5.1) mEq/L Chloride 101 (98-107) mEq/L Carbon Dioxide 23 (21-32) mEq/L Anion Gap 17.5 H (5-15) BUN 18 (7-18) mg/dL Creatinine 0.7 (0.55-1.02) mg/dL Est Cr Clr Drug Dosing 91.90 mL/min Estimated GFR (MDRD) > 60 (>60) mL/min BUN/Creatinine Ratio 25.7 H (14-18) Glucose 73 L (74-106) mg/dL Calcium 9.1 (8.5-10.1) mg/dL Total Bilirubin 0.5 (0.2-1.0) mg/dL AST 92 H (15-37) U/L ALT 275 H (14-59) U/L Alkaline Phosphatase 95 (46-116) U/L Total Protein 8.6 H (6.4-8.2) g/dl Albumin 4.4 (3.4-5.0) g/dl Globulin 4.2 gm/dL Albumin/Globulin Ratio 1.1 (1-2) Meds: Medications Discontinued Medications Generic Name Dose Route Start Last Admin Trade Name Freq PRN Reason Stop Dose Admin Sodium Chloride 1,000 mls @ 999 mls/hr 11/08/17 06:30 11/08/17 06:34 Normal Saline IV 999 mls/hr ONETIME MALDONADO Administration Sodium Chloride 10 ml 11/08/17 06:29 11/08/17 06:35 Saline Flush FLUSH 10 ml ASDIRECTED PRN Administration Keep Vein Open - Re-Assessments/Exams Free Text/Narrative Re-Assessment/Exam: 11/08/17 08:45 patient completed her IV medications. She left rather unhappily as she was hoping to obtain pain medications and anti-anxiety medications which were denied. Virus follow-up with her personal care physician in this regard Departure - Departure Disposition: Home, Self-Care 01 Clinical Impression: Hand contusion Qualifiers: Encounter type: initial encounter Laterality: right Qualified Code(s): S60.221A - Contusion of right hand, initial encounter Alcohol intoxication Qualifiers: Complication of substance-induced condition: uncomplicated Qualified Code(s): F10.920 - Alcohol use, unspecified with intoxication, uncomplicated - Discharge Information Instructions: Hand Contusion, [id number], Alcohol Intoxication, [id number] Referrals: PCP,None [Primary Care Provider] - Forms: ED Department Discharge Additional Instructions: Satish wrap right hand, ice packs and elevation as needed for swelling. Avoid further injury. Call or see counselor at [facility] if you are interested in help to stop drinking or to get back into a treatment program. They have walk in clinic 8:30 every morning Monday through Monday. <Jarrod Martin - Last Filed: 11/12/17 07:10> ED HPI GENERAL MEDICAL PROBLEM - General Source of Information: Reports: Patient, RN Notes Reviewed - History of Present Illness INITIAL COMMENTS - FREE TEXT/NARRATIVE: 27 show female comes in with right hand pain. She states that she punched a wall 2 days ago injuring the knuckles of her right hand. Then early this morning about 5 hours ago she states she accidentally got her hand slammed in car door. She is having pain primarily over the MCPs of the index and ring fingers. His pain with motion of her fingers. She can move the fingers but prefers not to do that. No open injury. Right Hand Pain Score (Numeric/FACES): 7 Past Medical History - Past Health History Medical/Surgical History: Denies Medical/Surgical History Cardiovascular History: Reports: Heart Murmur Respiratory History: Reports: Bronchitis, Recurrent Gastrointestinal History: Reports: GERD Other Gastrointestinal History: Pt states she has had kidney pain in right flank since she started drinking back in October. 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 Seizure witnessed by boyfriend, Anthony last night while detoxing, according to pt. 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 Pt states she drinks 1.5L Vodka daily to prevent detoxing and get high. Pt denies drug use. Immunologic History: Reports: None Oncologic (Cancer) History: Reports: Ovarian - Infectious Disease History Infectious Disease History: Reports: Chicken Pox - Past Surgical History Female Surgical History: Reports: Salpingo-Oophorectomy Neurological Surgical History: Reports: None Social & Family History - Family History Family Medical History: Unobtainable - Tobacco Use Smoking Status *Q: Current Every Day Smoker Years of Tobacco use: 2 Packs/Tins Daily: 0.5 Used Tobacco, but Quit: No Second Hand Smoke Exposure: No - Caffeine Use Caffeine Use: Reports: None - Alcohol Use Days Per Week of Alcohol Use: 7 Number of Drinks Per Day: 30 Total Drinks Per Week: 210 - Recreational Drug Use Recreational Drug Use: Yes Drug Use in Last 12 Months: Yes Recreational Drug Type: Reports: Benzodiazepines, Marijuana/Hashish Recreational Drug Use Frequency: Daily Recreational Drug Last Use: 45 days ago - Living Situation & Occupation Living situation: Reports: Single, Alone Occupation: Unemployed Review of Systems - Review of Systems Review Of Systems: See Below Mouth/Throat: Reports: No Symptoms Respiratory: Denies: Shortness of Breath Cardiovascular: Denies: Chest Pain GI/Abdominal: Denies: Nausea, Vomiting Musculoskeletal: Reports: Joint Pain (MCP joints of right hand) Neurological: Denies: Numbness, Tingling ED EXAM, GENERAL - Physical Exam Exam: See Below General Appearance: Alert, Anxious Eye Exam: Bilateral Eye: PERRL Throat/Mouth: Normal Inspection Head: Atraumatic. No: Facial Swelling Neck: Supple, Full Range of Motion Respiratory/Chest: No Respiratory Distress Cardiovascular: Tachycardia Extremities: Other (Tender over the second and third MCPs of the right hand, mild localized swelling, hand otherwise nontender, no visible deformity) Neurological: No Motor/Sensory Deficits Skin Exam: Warm, Dry, Normal Color Course - Orders/Labs/Meds Labs: Laboratory Tests 11/08/17 11/08/17 Range/Units 06:48 06:48 WBC 8.67 (3.98-10.04) K/mm3 RBC 4.49 (3.98-5.22) M/mm3 Hgb 13.6 (11.2-15.7) gm/L Hct 41.0 (34.1-44.9) % MCV 91.3 (79.4-94.8) fl MCH 30.3 (25.6-32.2) pg MCHC 33.2 (32.2-35.5) g/dl RDW Std Deviation 43.6 (36.4-46.3) fL Plt Count 292 (182-369) K/mm3 MPV 8.3 L (9.4-12.3) fl Neut % (Auto) 70.6 (34.0-71.1) % Lymph % (Auto) 21.5 (19.3-51.7) % Elbert % (Auto) 7.2 (4.7-12.5) % Eos % (Auto) 0.2 L (0.7-5.8) Baso % (Auto) 0.3 (0.1-1.2) % Neut # (Auto) 6.12 (1.56-6.13) K/mm3 Lymph # (Auto) 1.86 (1.18-3.74) K/mm3 Elbert # (Auto) 0.62 H (0.24-0.36) K/mm3 Eos # (Auto) 0.02 L (0.04-0.36) K/mm3 Baso # (Auto) 0.03 (0.01-0.08) K/mm3 Sodium 138 (136-145) mEq/L Potassium 3.5 (3.5-5.1) mEq/L Chloride 101 (98-107) mEq/L Carbon Dioxide 23 (21-32) mEq/L Anion Gap 17.5 H (5-15) BUN 18 (7-18) mg/dL Creatinine 0.7 (0.55-1.02) mg/dL Est Cr Clr Drug Dosing 91.90 mL/min Estimated GFR (MDRD) > 60 (>60) mL/min BUN/Creatinine Ratio 25.7 H (14-18) Glucose 73 L (74-106) mg/dL Calcium 9.1 (8.5-10.1) mg/dL Total Bilirubin 0.5 (0.2-1.0) mg/dL AST 92 H (15-37) U/L ALT 275 H (14-59) U/L Alkaline Phosphatase 95 (46-116) U/L Total Protein 8.6 H (6.4-8.2) g/dl Albumin 4.4 (3.4-5.0) g/dl Globulin 4.2 gm/dL Albumin/Globulin Ratio 1.1 (1-2) Meds: Medications Discontinued Medications Generic Name Dose Route Start Last Admin Trade Name Freq PRN Reason Stop Dose Admin Sodium Chloride 1,000 mls @ 999 mls/hr 11/08/17 06:30 11/08/17 06:34 Normal Saline IV 999 mls/hr ONETIME MALDONADO Administration Sodium Chloride 10 ml 11/08/17 06:29 11/08/17 06:35 Saline Flush FLUSH 10 ml ASDIRECTED PRN Administration Keep Vein Open - Re-Assessments/Exams Free Text/Narrative Re-Assessment/Exam: 11/08/17 06:37 X-rays of the hand are negative for fracture. As I went over those results with patient a short time ago she then quested that we "draw blood to check her liver enzymes". She states that she has history of alcohol dependency and abuse. She went through treatment couple months ago. She states she is currently drinking again quite heavily she is "worried about liver damage". She does admit to being under the influence of alcohol at this time. Departure - Departure Time of Disposition: 07:24 Condition: Fair
[2017-11-08] MEDS ORDERED: Sodium Chloride 0.9% 10 ML Syringe FLUSH PRN (06:29)
[2017-11-08] MEDS ORDERED: Sodium Chloride 0.9% 1,000 ML IV SCH (06:30)
--- NOTE | 2017-11-08 07:10 | CR ---
Right hand: Four views of the right hand were obtained. Comparison: No prior hand study. Joint spaces are preserved. No fracture, dislocation or other bony abnormality is seen. Impression: 1. No abnormality is identified on right hand exam. Diagnostic code #1
== END 2017-11-08 08:41 | disposition home or self-care (01) ==
LOC: JD.ED 05:36
DX: S60.221A Contusion of right hand, initial encounter (principal); F10.120 Alcohol abuse with intoxication, uncomplicated; Y90.9 Presence of alcohol in blood, level not specified; F17.210 Nicotine dependence, cigarettes, uncomplicated; W22.01XA Walked into wall, initial encounter
CPT/HCPCS: 36415; 73130; 80053; 85025; 96360; 99284; J7040; J7050; 99283

== ENCOUNTER 2017-11-30 20:27 | Emergency (ER) | payer BC ==
[2017-11-30 20:36] VITALS: BP 110/63
[2017-11-30] MEDS ORDERED: Ondansetron 4 MG Tab.DIS PO ONE (20:54)
--- NOTE | 2017-11-30 21:01 | EDM.PDOCBH ---
ED HPI GENERAL MEDICAL PROBLEM - General Chief Complaint: Drug or Alcohol Abuse Stated Complaint: DETOX Time Seen by Provider: 11/30/17 20:37 Source of Information: Reports: Patient History Limitations: Reports: No Limitations - History of Present Illness INITIAL COMMENTS - FREE TEXT/NARRATIVE: Patient is a 27-year-old female who is approximately 2 months wishing to be admitted for alcohol detox. Patient last drank alcohol approximately 45 minutes ago. She has a 2 year history of drinking half of a 1.75 L of vodka. She was admitted for inpatient treatment in [place] this past September. Since being discharged boyfriend states patient's been drinking alcohol every day. Patient smokes approximate 7 cigarettes a day. She also utilizes marijuana. With detox patient experiences seizures and is on Keppra. She also has a history of schizophrenia and has not been taking any of the medication she is supposed to be. There is no additional past medical history. She has no primary care provider here locally. She has been admitted to the [facility] times for detox. Epigastric Pain Score (Numeric/FACES): 7 - Related Data Allergies Allergy/AdvReac Type Severity Reaction Status Date / Time No Known Allergies Allergy Verified 11/30/17 20:31 Home Meds: Home Meds . [No Known Home Meds] 11/30/17 [History] Past Medical History - Past Health History Medical/Surgical History: Denies Medical/Surgical History Cardiovascular History: Reports: Heart Murmur Respiratory History: Reports: Bronchitis, Recurrent Gastrointestinal History: Reports: GERD Other Gastrointestinal History: Pt states she has had kidney pain in right flank since she started drinking back in October. 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 Seizure witnessed by boyfriendAnthony last night while detoxing, according to pt. 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 Pt states she drinks 1.5L Vodka daily to prevent detoxing and get high. Pt denies drug use. Immunologic History: Reports: None Oncologic (Cancer) History: Reports: Ovarian - Infectious Disease History Infectious Disease History: Reports: Chicken Pox - Past Surgical History Female Surgical History: Reports: Salpingo-Oophorectomy Neurological Surgical History: Reports: None Social & Family History - Family History Family Medical History: Unobtainable - Tobacco Use Smoking Status *Q: Current Every Day Smoker Years of Tobacco use: 8 Packs/Tins Daily: 0.4 Used Tobacco, but Quit: No Second Hand Smoke Exposure: No - Caffeine Use Caffeine Use: Reports: None - Alcohol Use Days Per Week of Alcohol Use: 7 Number of Drinks Per Day: 30 Total Drinks Per Week: 210 - Recreational Drug Use Recreational Drug Use: No Drug Use in Last 12 Months: Yes Recreational Drug Type: Reports: Benzodiazepines, Marijuana/Hashish Recreational Drug Use Frequency: Daily Recreational Drug Last Use: 45 days ago - Living Situation & Occupation Living situation: Reports: Single, Alone Occupation: Unemployed ED ROS GENERAL - Review of Systems Review Of Systems: ROS reveals no pertinent complaints other than HPI. ED EXAM, BEHAVIORAL HEALTH - Physical Exam Exam: See Below Exam Limited By: Intoxication General Appearance: Alert (Alert and oriented x 3. ), WD/WN, Other (crying and angry) Nose: Normal Inspection Throat/Mouth: Normal Voice, No Airway Compromise Neck: Normal Inspection, Supple Respiratory/Chest: No Respiratory Distress, No Accessory Muscle Use Extremities: Normal Inspection, Normal Range of Motion Neurological: Alert, CN II-XII Intact Psychiatric: Alert, Normal Cognition, Tearful, Agitated, Other (Patient is wishing to undergo detox.) Skin Exam: Warm, Dry, Intact, Normal color COURSE, BEHAVIORAL HEALTH COMP - Course Vital Signs: Last Vital Signs Temp 97.3 F 11/30/17 20:31 Pulse 67 11/30/17 20:31 Resp 16 11/30/17 20:31 BP 110/63 11/30/17 20:31 Pulse Ox 100 11/30/17 20:31 Orders, Labs, Meds: Medications Discontinued Medications Generic Name Dose Route Start Last Admin Trade Name Freq PRN Reason Stop Dose Admin Ondansetron HCl 4 mg 11/30/17 20:54 11/30/17 21:00 Zofran Odt PO 11/30/17 20:55 4 mg ONETIME ONE Administration Re-Assessment/Re-Exam: Patient is a 27-year-old female who is and is an alcoholic who drinks half of a 1.75 L of vodka almost daily for the past 2 years. Patient was discharged from inpatient treatment in [place] for alcohol. Boyfriend is present states patient has-been drinking alcohol everyday for the past 2 months. Patient last consumed alcohol 45 minutes ago. She is requesting inpatient detox here in [place]. [address] Segovia medication specialist hospitalist he refuses to admit a detox patient. Request patient seek medical detox and psychiatric evaluation in [place]. Patient became very angry with this news. She was screaming at me stating that she wants and demands to be admitted here for inpatient detox. I told her that she was not going to be admitted here. I also offered to start the detox treatment process and arrange transport to [place]. Again patient screamed and does not want to go to [place]. She does have a ride to go to [place]. Boyfriend is fully capable of driving her there. Patient has been swearing at me throughout the ED visit. 2109 Patient is upset that we are not going to admit her here. She repeatedly states she has insurance and she demands to be admitted here. I advised her the insurance is not a decision point. I told her hospitalist refuses to admit detox patient and requested patient be transferred to [facility]. Boyfriend is aware of this and will transport the patient to [place]. 2110 Patient and boyfriend eloped. Departure - Departure Time of Disposition: 21:12 Disposition: Eloped 07 Clinical Impression: Alcohol abuse - Discharge Information Instructions: Chemical Dependency
== END 2017-11-30 21:12 | disposition left against medical advice (07) ==
LOC: JD.ED 20:27
DX: F10.129 Alcohol abuse with intoxication, unspecified (principal); F17.210 Nicotine dependence, cigarettes, uncomplicated
CPT/HCPCS: 99284; A9270